=== PATIENT | female | born 1945 | race Caucasian/White ===

== ENCOUNTER 2019-07-29 12:06 | Emergency (ER) | payer MEDICARE, MEDICAID, SELFPAY ==
[2019-07-29 13:20] VITALS: BP 143/75; PULSE 62; RESP 18; TEMP 36.6; O2SAT 98; BMI 28.3
--- NOTE | 2019-07-29 13:26 | PC.NURSE ---
Patient seated back in the waiting room due to unavailable rooms at this time. Will continue to monitor.
[2019-07-29 16:24] VITALS: BP 134/76; PULSE 63; RESP 16; O2SAT 99
--- NOTE | 2019-07-29 17:12 | ED_ITS ---
Documented by User: JOSE Gonzalez 07/30/19 01:56 HPI - General Adult General: Chief complaint: General Medical Stated complaint: right sided face pain/hip pain Time Seen by Provider: 07/29/19 16:01 History of Present Illness: HPI narrative: Patient is a 73-year-old female comes to the ED with hip pain and facial pain. Facial pain started about a month ago and occurs whenever she touches right side of her face. She describes the pain as sharp. Denies any numbness weakness or tingling or any change of vision. Hip pain started about a month ago as well and denies any falls or traumas to the hip. Pain is on the right hip. She rates at about an 8/10. Denies any chest pain, shortness of breath, abdominal pain no nausea, vomiting, bladder or bowel symptoms. Review of Systems General: Reports: 10 or more systems reviewed and unremarkable except in HPI and below PFSH ED PFSH: Statuses (acute, chronic, etc) shown below reflect problem list status as previously entered and may not be historically accurate Family History Other CAD (coronary artery disease) Diabetes Hypertension Social History Smoking and tobacco status: never smoked Physical Exam Const: COMMON NORMALS: oriented x3 HENMT: COMMON NORMALS: normocephalic HEAD & SCALP: normocephalic MOUTH: oral and palatal mucosa normal THROAT: posterior oropharynx normal and uvula midline Neck/C-Spine: COMMON NORMALS: supple GENERAL: Yes normal visual inspection Resp: COMMON NORMALS: normal respiratory effort, no retractions, no use of accessory muscles and clear to auscultation bilaterally AUSCULTATION: clear to auscultation bilaterally Cardio: COMMON NORMALS: regular rate, regular rhythm, S1 normal heart sound, S2 normal heart sound, no gallops, no clicks, no murmurs and peripheral pulses 2+ throughout RATE: regular rate RHYTHM: regular rhythm HEART SOUNDS: S1 normal and S2 normal PERIPHERAL PULSES: pulses 2+ throughout GI: COMMON NORMALS: normal to inspection, nondistended, normoactive bowel sounds, soft to palpation, non-tender and no masses PALPATION: Yes soft : COMMON NORMALS: Yes no CVA tenderness BLADDER/KIDNEY EXAM: Yes no CVA tenderness Back/Pelvis: COMMON NORMALS: no CVA tenderness Neuro: COMMON NORMALS: oriented x3 and moves all extremities Course Vital Signs: Vital signs: Vital Signs Temperature 97.7 F 07/29/19 20:03 Pulse Rate 58 L 07/29/19 20:03 Respiratory Rate 16 07/29/19 20:03 Blood Pressure 115/74 07/29/19 20:03 Pulse Oximetry 98 07/29/19 20:03 MDM - General Adult Lab Data: Attestation: I reviewed the patient's lab results. Labs: Lab Results 07/29/19 Range/Units 17:42 ESR 22 H (0-15) mm/hr Imaging Data^: Xray Ortho: Attestation: I personally reviewed and interpreted this imaging study as follows: Radiologist's impression: [address] [address] XRay Report Signed Patient: Vi Hickey Unit #: [id number] : 1945 Age/Sex: 73 / F ADM Date: 07/29 Loc: ER Room/Bed: Attending Dr: Ordering Provider/Ordering MD: Ijeoma Washburn NP Date of Service: 07/29/19 Procedure(s): XR hip RT 2-3V wo/w pel* [id number] Accession Number(s): [id number] Report Number: [id number] PROCEDURE INFORMATION: Exam: XR Right Hip with Pelvis when Performed Exam date and time: 07/29/2019 5:32 PM Age: 73 years old Clinical indication: Hip pain; Right hip; Patient HX: Pain in RT hip x 1 mo. No known injury; Additional info: Pain with ambulation TECHNIQUE: Imaging protocol: XR Right hip with pelvis when performed. Views: 1 view. COMPARISON: [facility] Hip RIGHT 2-3 views 09/14/2017 11:42 AM FINDINGS: Bones/joints: Unremarkable. No acute fracture. Soft tissues: Unremarkable. XR/XR hip RT 2-3V wo/w pel* [id number] IMPRESSION: No acute findings. Dictated By: Glen Kendrick Signed By: Glen Kendrick Signed Date/Time: 07/29/191911 DD/ 09 Discharge Plan Discharge Patient Disposition: Home, Self-Care Clinical Impression: Trigeminal neuralgia Condition: Stable Prescriptions: New Tegretol 200 mg tablet 100 mg PO BID Qty: 14 RF: 0 prednisone 20 mg tablet 20 mg PO BID 5 Days Qty: 10 RF: 0 No Action furosemide 40 mg tablet 40 mg PO BID RF: 0 Januvia 100 mg tablet 100 mg PO DAILY RF: 0 metformin 500 mg tablet 500 mg PO BID RF: 0 Bystolic 10 mg tablet 10 mg PO DAILY RF: 0 cholecalciferol (vitamin D3) 1,000 unit capsule 1,000 unit PO DAILY RF: 0 omeprazole 40 mg capsule,delayed release(DR/EC) 40 mg PO BID RF: 0 levothyroxine 75 mcg capsule 75 mcg PO DAILY RF: 0 citalopram 20 mg tablet 10 mg PO DAILY RF: 0 simvastatin 20 mg tablet 20 mg PO DAILY RF: 0 ropinirole 2 mg tablet 2 mg PO BID PRNRF: 0 valsartan 160 mg tablet 160 mg PO DAILY RF: 0 quetiapine 50 mg tablet 50 mg PO DAILY RF: 0 potassium chloride [Klor-Con 10] 10 mEq tablet extended release 10 meq PO DAILY RF: 0 isosorbide mononitrate 30 mg tablet extended release 24 hr 30 mg PO DAILY Qty: 30 RF: 4 Discharge Orders: Discharge Order (Routine); Ordered 07/29/19 Ordered By: Ijeoma Washburn Referrals: Roberth Saenz MD [Primary Care Provider] - Discharge Diet: Advance as tolerated Discharge Activity: Resume usual activity Patient Instructions: Trigeminal Neuralgia (ED) Activity Restrictions/Additional Instructions: Please call PCP in am to see if he wants you to contine treatment with Tegretol. Schedule follow up appointment with PCP in 7 days. Please return to ER with any worsening of symptoms. Please take meds as directed Discharge Date/Time: 07/29/19 20:03 Sign Out Sign Out Data: Patient Sign Out occurred on 07/29/19 at 19:19. Patient's care was discussed, and care was transferred from Ijeoma Washburn to JOSE Gonzalez. Sign Out Comment: PEnding final xray read from radiologist Last updated by Ijeoma Washburn at 07/29/19 19:10 Coding Level of Care Code ED Hospitality Aide for Chg Fwd Documented by User: Ijeoma Washburn 07/30/19 07:16 HPI - General Adult General: Chief complaint: General Medical Stated complaint: right sided face pain/hip pain Time Seen by Provider: 07/29/19 16:01 History of Present Illness: Associated symptoms: Deny chest pain, confusion, diaphoresis, dyspnea, headache(s), malaise, nausea, rash, palpitations, syncope or vomiting Review of Systems Const: Denies: fever, chills, body aches, change in appetite, change in weight, fatigue, malaise or diaphoresis Eyes: Denies: change in vision, blurry vision, blind spots, photophobia, eye discomfort, eye discharge, eye redness, floaters or seeing flashes ENMT: Denies: throat pain, uvular edema, enlarged tonsils, painful swallowing, hoarseness, mouth pain, swelling of lips/tongue, oral sores/lesions, bleeding gums, dental pain, dry mouth, ear pain, ear discharge, Change in hearing, tinnitus, disequilibrium, nasal discharge, nasal congestion, post nasal drip or facial/sinus pain Card: Denies: chest pain, palpitations, irregular heart rhythm, edema, swelling of feet/ankles, lightheadedness, syncope, pre-syncope, shortness of breath on exertion, shortness of breath when lying down, leg pain with exertion or bluish discoloration of hands/feet Resp: Denies: shortness of breath, productive cough, non-productive cough, wheezing, stridor, pain on inspiration, change in phlegm color, coughing up blood or chest congestion GI: Denies: abdominal pain, nausea, vomiting, vomiting blood, difficulty swallowing, diarrhea, constipation, cramping, change in bowel habits or rectal pain : Denies: flank pain, difficulty urinating, painful urination, urinary frequency, urinary urgency, urinary hesitancy or blood in urine Musc: Reports: joint pain (right hip pain); Denies: neck pain, back pain, extremity pain, extremity swelling, joint swelling, redness, joint warmth or deformity Skin/Breast: Denies: rash, itching, redness, sores, new lesion, changes in skin color or dry skin Neuro: Reports: changes in sensation (Pt c/o dull ach and tingling to right cheek that is intermittent); Denies: headache, numbness in extremities, weakness in extremities, lack of coordination, difficulty walking, frequent falls, dizziness, vertigo, confusion, behavioral changes, slurred speech, difficulty communicating thoughts or seizure-like activity Psych: Denies: anxiety, depression, suicidal ideation or homicidal ideation Endo: Denies: excessive urination, excessive thirst, tired all the time, cold intolerance, excessive sweating, flushing, hot flashes or heat intolerance Deric/Lymph: Denies: easy bruising, easy bleeding, petechiae, purpura, enlarged lymph nodes or tender lymph nodes All/Imm: Denies: hives, throat swelling, tongue swelling, facial swelling, acute wheezing or itchy eyes PFSH ED PFSH: Statuses (acute, chronic, etc) shown below reflect problem list status as previously entered and may not be historically accurate Family History Other CAD (coronary artery disease) Diabetes Hypertension Social History Smoking and tobacco status: never smoked Physical Exam Const: COMMON NORMALS: oriented x3 and alert ORIENTATION/CONSCIOUSNESS: Yes oriented to person, Yes oriented to place and Yes oriented to time HENMT: THROAT: no uvular edema Neuro: COMMON NORMALS: oriented x3, CN's II-XII intact bilaterally, moves all extremities and no focal motor deficits SENSORIUM/ORIENTATION: Yes alert, Yes oriented to person, Yes oriented to place and Yes oriented to time CRANIAL NERVES: Yes CN V (trigeminal) (When trigimineal nerve is tapped this does elicit pain. ) CN V laterality: right COORDINATION/BALANCE: [id number]-sa-[id number] test normal, jwzh-fs-[id number] test normal and tandem gait normal SPEECH: speech normal GAIT: Yes normal gait and Yes other (When trigimineal nerve is tapped this does elicit pain. ) MOTOR EXAM: strength 5/5 throughout, no pronator drift, no tremor noted, no asterixis, no fasciculations and muscle tone normal throughout COORDINATION: jycebu-pi-qmsl test normal, znim-mh-[id number] test normal and tandem gait normal Course ED course: Pt is well appearing non toxic and in no acute distress. Pt does not have any visual disturbances and does not c/o headache however pt does c/o pain to right cheek that is intermittent. When trigimineal nerve is tapped this does elicit pain. there is no facial dropping noted. I do not feel symptoms are c/o giant cell arteritis but physical exam findings are c/w trigimenal neuralgia. I will start pt on tegretol low dose today and have her follow up with PCP tomorrow. There are no other focal neuro deficits noted. Pt is NVI distal to right hip. there are no concerning findings on hip/pelvis xray. Vital Signs: Vital signs: Vital Signs Temperature 97.7 F 07/29/19 20:03 Pulse Rate 58 L 07/29/19 20:03 Respiratory Rate 16 07/29/19 20:03 Blood Pressure 115/74 07/29/19 20:03 Pulse Oximetry 98 07/29/19 20:03 [facility] - General Adult Lab Data: Labs: Lab Results 07/29/19 Range/Units 17:42 ESR 22 H (0-15) mm/hr Discharge Plan Discharge Patient Disposition: Home, Self-Care Clinical Impression: Trigeminal neuralgia Condition: Stable Prescriptions: New Tegretol 200 mg tablet 100 mg PO BID Qty: 14 RF: 0 prednisone 20 mg tablet 20 mg PO BID 5 Days Qty: 10 RF: 0 No Action furosemide 40 mg tablet 40 mg PO BID RF: 0 Januvia 100 mg tablet 100 mg PO DAILY RF: 0 metformin 500 mg tablet 500 mg PO BID RF: 0 Bystolic 10 mg tablet 10 mg PO DAILY RF: 0 cholecalciferol (vitamin D3) 1,000 unit capsule 1,000 unit PO DAILY RF: 0 omeprazole 40 mg capsule,delayed release(DR/EC) 40 mg PO BID RF: 0 levothyroxine 75 mcg capsule 75 mcg PO DAILY RF: 0 citalopram 20 mg tablet 10 mg PO DAILY RF: 0 simvastatin 20 mg tablet 20 mg PO DAILY RF: 0 ropinirole 2 mg tablet 2 mg PO BID PRNRF: 0 valsartan 160 mg tablet 160 mg PO DAILY RF: 0 quetiapine 50 mg tablet 50 mg PO DAILY RF: 0 potassium chloride [Klor-Con 10] 10 mEq tablet extended release 10 meq PO DAILY RF: 0 isosorbide mononitrate 30 mg tablet extended release 24 hr 30 mg PO DAILY Qty: 30 RF: 4 Discharge Orders: Discharge Order (Routine); Ordered 07/29/19 Ordered By: Ijeoma Washburn Referrals: Roberth Saenz MD [Primary Care Provider] - Discharge Diet: Advance as tolerated Discharge Activity: Resume usual activity Patient Instructions: Trigeminal Neuralgia (ED) Activity Restrictions/Additional Instructions: Please call PCP in am to see if he wants you to contine treatment with Tegretol. Schedule follow up appointment with PCP in 7 days. Please return to ER with any worsening of symptoms. Please take meds as directed Discharge Date/Time: 07/29/19 20:03 Sign Out Sign Out Data: Patient Sign Out occurred on 07/29/19 at 19:19. Patient's care was discussed, and care was transferred from Ijeoma Washburn to JOSE Gonzalez. Sign Out Comment: PEnding final xray read from radiologist Last updated by Ijeoma Washburn at 07/29/19 19:10 Coding Level of Care Code ED Hospitality Aide for Jimmyg Tayla
--- NOTE | 2019-07-29 17:14 | XRR_ITS ---
PROCEDURE INFORMATION: Exam: XR Right Hip with Pelvis when Performed Exam date and time: 07/29/2019 5:32 PM Age: 73 years old Clinical indication: Hip pain; Right hip; Patient HX: Pain in RT hip x 1 mo. No known injury; Additional info: Pain with ambulation TECHNIQUE: Imaging protocol: XR Right hip with pelvis when performed. Views: 1 view. [place] [facility] [place]-3 views 09/14/2017 11:42 AM FINDINGS: Bones/joints: Unremarkable. No acute fracture. Soft tissues: Unremarkable. XR/XR hip RT 2-3V wo/w pel* [id number] IMPRESSION: No acute findings.
[2019-07-29 18:44] LABS: Erythrocyte Sedimentation Rate 22 mm/hr (0-15)
[2019-07-29 20:03] VITALS: BP 115/74; PULSE 58; RESP 16; TEMP 36.5; O2SAT 98
== END 2019-07-29 20:03 | disposition home or self-care (01) ==
PROVIDERS: Registered Nurse; Emergency Provider Physician Assistant; Family Provider Family Medicine; PCP Family Medicine
DX: G50.0 Trigeminal neuralgia (principal)
CPT/HCPCS: 36415; 73502; 85651; 99281; 99283

== ENCOUNTER 2019-08-15 06:00 | Outpatient (RCR) | payer MEDICARE, MEDICAID, SELFPAY | END 2019-08-24 23:59 | disposition home or self-care (01) | LOC: APT 06:00 | PROVIDERS: Family Provider Family Medicine; PCP Family Medicine; Referring Provider Family Medicine; Visit Provider Family Medicine | DX: M79.18 Myalgia, other site (principal) | CPT/HCPCS: 97110; 97140; 97162 ==

== ENCOUNTER 2019-08-25 06:00 | Outpatient (RCR) | payer MEDICARE, MEDICAID, SELFPAY | END 2019-09-24 23:59 | disposition home or self-care (01) | LOC: APT 06:00 | PROVIDERS: Family Provider Family Medicine; PCP Family Medicine; Referring Provider Family Medicine; Visit Provider Family Medicine | DX: M79.18 Myalgia, other site (principal) | CPT/HCPCS: 97110; 97140 ==

== ENCOUNTER 2019-09-14 12:37 | Emergency (ER) | payer MEDICARE, MEDICAID, SELFPAY ==
[2019-09-14 12:42] VITALS: BMI 30.2
--- NOTE | 2019-09-14 12:45 | CTR_ITS ---
PROCEDURE INFORMATION: Exam: CT Head Without Contrast Exam date and time: 09/14/2019 12:50 PM Age: 73 years old Clinical indication: Pain; Headache not specified; Patient HX: C/O intermittent R sided NAIDU radiating into neck x 1 months; Additional info: Trauma TECHNIQUE: Imaging protocol: Computed tomography of the head without contrast. Total DLP: 776.74 mGy-cm Radiation optimization: All CT scans at this facility use at least one of these dose optimization techniques: automated exposure control; mA and/or kV adjustment per patient size (includes targeted exams where dose is matched to clinical indication); or iterative reconstruction. COMPARISON: CT head wo con* [id number] 04/06/2018 11:54 AM FINDINGS: Brain: Symmetric prominence of the cortical sulci. Mild small vessel ischemic change. No acute cortical infarct, mass effect, or intracranial hemorrhage. No acute post-traumatic brain injury. Ventricles: Normal configuration of the ventricles. Bones/joints: No acute calvarial injury. 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 Mastoid air cells: Diminished pneumatization of the mastoid air cells. Soft tissues: No significant scalp hematoma. CT/CT head wo con* [id number] IMPRESSION: No acute post-traumatic brain injury. Radiation Dose CTDIVOL = (mGy): DLP = 776.74 (mGy-cm)
[2019-09-14 12:47] VITALS: BP 143/93; PULSE 66; RESP 18; TEMP 36.5; O2SAT 97
--- NOTE | 2019-09-14 13:01 | W.ED.HA ---
HPI - Headache General: Chief Complaint: Headache Stated Complaint: RIGHT HEAD AND NECK PAIN / FALL Time Seen by Provider: 09/14/19 12:43 Source: patient and family Mode of arrival: ambulatory Limitations: no limitations History of Present Illness: HPI Narrative: Patient is a 73-year-old female who presents to ED today along with her significant other for complaints of intermittent sharp right sided headaches and facial pain. Patient states symptoms seem to be intermittent and come on very suddenly. She states she has been having intermittent symptoms over the past month. When looking at previous visit lists she has been seen here last month for the same complaint and at that visit she stated pain had been present for a month concluding that this is been present for at least 2 months now. She states pain will last anywhere from a few seconds to a few minutes. She states pain seems to come on when she touches the right side of her face. She has not noticed any changes to her vision, facial drooping, slurred speech, impaired hearing. She has no dental pains. She denies nasal congestion or sinus pains/pressure. When she was seen here a month ago she was diagnosed with trigeminal neuralgia and placed on Tegretol for a week. Patient states she never followed up with her PCP following that visit. MD elicited complaint: headache and other (R facial pain) Onset (ago): month(s) Onset description: suddenly Location: right Severity: severe Quality & Timing: sharp and other (stabbing; brief; intermittent ) Relieving factors: nothing Associated symptoms: Reports no associated symptoms; Deny fever(s) Review of Systems Const: Denies: fever, chills, body aches or fatigue Eyes: Denies: change in vision, blurry vision, photophobia, eye discomfort, eye discharge, floaters or seeing flashes ENMT: Denies: throat pain, enlarged tonsils, painful swallowing, mouth pain, swelling of lips/tongue, oral sores/lesions, dental pain, ear pain, ear discharge, Change in hearing, nasal discharge, nasal congestion, post nasal drip or facial/sinus pain Resp: Denies: productive cough or non-productive cough Musc: Denies: neck pain Neuro: Denies: headache (R sided NAIDU/facial pain), numbness in extremities, weakness in extremities, changes in sensation, lack of coordination, difficulty walking, dizziness, vertigo, slurred speech or seizure-like activity All/Imm: Denies: facial swelling or seasonal allergies PFSH ED PFSH: Social History Smoking and tobacco status: never smoked Physical Exam Const: COMMON NORMALS: no apparent distress, average body habitus, oriented x3, no limitations, healthy appearing, alert and well nourished ORIENTATION/CONSCIOUSNESS: Yes oriented to person, Yes oriented to place and Yes oriented to time OTHER: pt reports being asymptomatic currenlty HENMT: COMMON NORMALS: normocephalic, head/scalp atraumatic, hearing grossly normal bilaterally, external ears normal, EAC's normal, TM's normal bilaterally, external nose normal, nasal mucous membranes and turbinates normal, moist oral mucous membranes and oropharynx normal HEAD & SCALP: normal to inspection, normocephalic and atraumatic FACE & SINUS: normal facial exam and sinuses nontender NOSE: external nose normal and nasal mucous membranes and turbinates normal EXTERNAL EAR: Yes external ears normal EXTERNAL AUDITORY CANAL: EAC's normal TYMPANIC MEMBRANE: TM's normal bilaterally MOUTH: oral and palatal mucosa normal, lip normal and tongue normal THROAT: posterior oropharynx normal, tonsils normal and uvula midline Eye: COMMON NORMALS: PERRL, EOMs intact bilaterally and conjunctivae normal CONJUNCTIVA: Yes conjunctivae normal PUPIL: Yes PERRL OTHER: no nystagmus Neck/C-Spine: COMMON NORMALS: full ROM, no lymphadenopathy and no meningeal signs Neuro: KASHIF COMA SCALE: document GCS findings [place] coma scale eye opening: Spontaneous [place] coma scale verbal response: Orientated Kashif coma scale motor response: Obey commands [place] coma scale total score: 15 COMMON NORMALS: oriented x3, CN's II-XII intact bilaterally, moves all extremities, no focal motor deficits, no sensory deficits noted and gait normal SENSORIUM/ORIENTATION: Yes alert, Yes oriented to person, Yes oriented to place and Yes oriented to time MENINGEAL SIGNS: Yes no meningeal signs SPEECH: speech normal Course Vital Signs: Vital signs: Vital Signs Temperature 97.7 F 09/14/19 12:47 Pulse Rate 68 09/14/19 14:04 Respiratory Rate 18 09/14/19 14:04 Blood Pressure 136/74 09/14/19 14:04 Pulse Oximetry 96 03/21/20 14:04 MDM - Headache MDM Narrative: Medical decision making narrative: Symptoms have been present and intermittent over the past 2 months at least. Clinical history of acute onset of very sharp stabbing pain lasting a few seconds to a few minutes is consistent with a trigeminal neuralgia. We will go ahead and place patient back on her Tegretol with strict instructions to follow-up with her PCP as this medication often needs to be titrated based on symptom control. 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 This does not coincide with patient's symptoms. Imaging Data^: CT Head: Radiologist's impression: [address] [place] [address] CT Scan Report Signed Patient: Vi Hickey Unit #: [id number] : 1945 Age/Sex: 73 / F ADM Date: 09/14/19 Loc: ER Room/Bed: Attending Dr: Ordering Provider/Ordering MD: Nenita Enriquez Date of Service: 09/14/19 Procedure(s): CT head wo con* [id number] Accession Number(s): [id number] Report Number: [id number] PROCEDURE INFORMATION: Exam: CT Head Without Contrast Exam date and time: 09/14/2019 12:50 PM Age: 73 years old Clinical indication: Pain; Headache not specified; Patient HX: C/O intermittent R sided NAIDU radiating into neck x 1 months; Additional info: Trauma TECHNIQUE: Imaging protocol: Computed tomography of the head without contrast. Total DLP: 776.74 mGy-cm Radiation optimization: All CT scans at this facility use at least one of these dose optimization techniques: automated exposure control; mA and/or kV adjustment per patient size (includes targeted exams where dose is matched to clinical indication); or iterative reconstruction. COMPARISON: CT head wo con* [id number] 04/06/2018 11:54 AM FINDINGS: Brain: Symmetric prominence of the cortical sulci. Mild small vessel ischemic change. No acute cortical infarct, mass effect, or intracranial hemorrhage. No acute post-traumatic brain injury. Ventricles: Normal configuration of the ventricles. Bones/joints: No acute calvarial injury. 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 Mastoid air cells: Diminished pneumatization of the mastoid air cells. Soft tissues: No significant scalp hematoma. CT/CT head wo con* [id number] IMPRESSION: No acute post-traumatic brain injury. Radiation Dose CTDIVOL = (mGy): DLP = 776.74 (mGy-cm) Dictated By: Tan Pete MD Signed By: Tan Pete MD Signed Date/Time: 09/14/191322 DD/ 132 Discharge Plan Discharge Patient Disposition: Home, Self-Care Clinical Impression: Trigeminal neuralgia Condition: Stable Prescriptions: New Tegretol 200 mg tablet 200 mg PO BID Qty: 60 RF: 0 Discontinued carbamazepine [Tegretol] 200 mg tablet 100 mg PO BID Qty: 14 RF: 0 No Action furosemide 40 mg tablet 40 mg PO BID RF: 0 Januvia 100 mg tablet 100 mg PO DAILY RF: 0 metformin 500 mg tablet 500 mg PO BID RF: 0 Bystolic 10 mg tablet 10 mg PO DAILY RF: 0 cholecalciferol (vitamin D3) 1,000 unit capsule 1,000 unit PO DAILY RF: 0 omeprazole 40 mg capsule,delayed release(DR/EC) 40 mg PO BID RF: 0 levothyroxine 75 mcg capsule 75 mcg PO DAILY RF: 0 citalopram 20 mg tablet 10 mg PO DAILY RF: 0 simvastatin 20 mg tablet 20 mg PO DAILY RF: 0 ropinirole 2 mg tablet 2 mg PO BID PRNRF: 0 valsartan 160 mg tablet 160 mg PO DAILY RF: 0 quetiapine 50 mg tablet 50 mg PO DAILY RF: 0 potassium chloride [Klor-Con 10] 10 mEq tablet extended release 10 meq PO DAILY RF: 0 isosorbide mononitrate 30 mg tablet extended release 24 hr 30 mg PO DAILY Qty: 30 RF: 4 Discharge Orders: Discharge Order (Routine); Ordered 09/14/19 Ordered By: Nenita Enriquez Referrals: Roberth Saenz MD [Primary Care Provider] - Discharge Diet: Usual diet Discharge Activity: Resume usual activity Activity Restrictions/Additional Instructions: As discussed you must follow up with Dr. Saenz for further evaluation of your headaches/possible diagnoses of trigeminal neuralgia. If he wants you to stay on the Tegretol then he may have to slowly titrate this higher until it helps with symptoms. Discharge Date/Time: 09/14/19 14:05 Coding Level of Care Code ED Local Bulk Driver for Cammie Bourne
[2019-09-14 14:04] VITALS: BP 136/74; PULSE 68; RESP 18; O2SAT 96
== END 2019-09-14 14:05 | disposition home or self-care (01) ==
PROVIDERS: Emergency Provider Physician Assistant; Family Provider Family Medicine; PCP Family Medicine
DX: G50.0 Trigeminal neuralgia (principal)
CPT/HCPCS: 12345; 70450; 99281; 99282

== ENCOUNTER → 2019-09-20 09:39 | Outpatient (BNVA) | payer MEDICARE, MEDICAID, SELFPAY | PROVIDERS: Family Provider Family Medicine; PCP Family Medicine; Visit Provider Nurse Practitioner Family | DX: R69 Illness, unspecified (principal); R82.998 Other abnormal findings in urine; R39.9 Unspecified symptoms and signs involving the genitourinary system; N39.0 Urinary tract infection, site not specified; R11.2 Nausea with vomiting, unspecified; G50.0 Trigeminal neuralgia; F41.9 Anxiety disorder, unspecified; R68.89 Other general symptoms and signs | CPT/HCPCS: 80053; 81003; 85025; 87400 ==

== ENCOUNTER 2019-10-11 00:50 | Emergency (ER) | payer MEDICARE, MEDICAID, SELFPAY ==
[2019-10-11 00:51] VITALS: BP 142/77; PULSE 77; RESP 18; TEMP 36.5; O2SAT 95; BMI 31.1
--- NOTE | 2019-10-11 01:04 | XR_ITS ---
WS: [id number] PORTABLE CHEST HISTORY: cough/congestion COMPARISON: 04/24/2018 Lungs are clear and well expanded. No pleural effusion or pneumothorax. Cardiac size: Normal. Mediastinum/Aorta: Mildly ectatic aorta. No osseous abnormality seen. Prior LEFT axillary cornelius dissection. XR/XR chest 1V portable [id number] IMPRESSION: Mildly ectatic aorta. No acute findings.
--- NOTE | 2019-10-11 01:07 | W.ED.DIZZY ---
Documented by User: JOSE Alonzo 10/14/19 17:09 HPI - Dizziness General: Chief Complaint: Fall Stated Complaint: FALL/DIZZINESS Time Seen by Provider: 10/11/19 01:04 Source: patient and EMS Mode of arrival: EMS Limitations: no limitations History of Present Illness: HPI Narrative: Patient is a 74-year-old female who presents to ED today via EMS for complaints of dizziness and a fall. Patient tells me after taking her morning dose of Tegretol she began feeling dizzy. She states symptoms lasted approximately an hour or so and then subsided. She states that the day she seemed to be okay however noticed when she took her evening dose that she again became dizzy which caused her to fall. Patient states there was no LOC. She states she struck the right side of her face on an object however is not having any pain. She denies any neck or back pain. Patient states she had initially stopped taking the Tegretol but restarted it today. She is not having any abdominal pain, nausea, vomiting, diarrhea. Denies urinary symptoms. She denies chest pain, cough, shortness of breath, difficulty breathing. Again no neck pain, visual changes, headache, numbness/tingling/weakness in her extremities, facial droop, slurred speech, or any other concerns at this time. MD elicited complaint: dizziness Onset (ago): hour(s) Context: change in medication History of similar symptoms: No Associated symptoms: Denies change in hearing, chest pain, chills, ear discharge, headache(s), malaise, nausea, nasal congestion, palpitations, syncope or vomiting Associated neuro symptoms: Deny numbness in extremities Review of Systems Const: Denies: fever, chills, body aches, fatigue or malaise Eyes: Denies: change in vision, blurry vision, photophobia, floaters or seeing flashes ENMT: Denies: throat pain, enlarged tonsils, painful swallowing, mouth pain, swelling of lips/tongue, oral sores/lesions, ear pain, ear discharge, Change in hearing, nasal discharge or nasal congestion Card: Denies: chest pain, palpitations, irregular heart rhythm, edema, swelling of feet/ankles, lightheadedness, syncope, pre-syncope, shortness of breath on exertion, shortness of breath when lying down or leg pain with exertion Resp: Denies: shortness of breath, productive cough, non-productive cough, pain on inspiration, coughing up blood or chest congestion GI: Denies: abdominal pain, nausea, vomiting, heartburn/indigestion or diarrhea : Denies: flank pain, difficulty urinating, painful urination, urinary frequency, urinary urgency or urinary hesitancy Musc: Denies: neck pain, back pain, extremity pain, extremity swelling, joint pain or joint swelling Skin/Breast: Denies: rash Neuro: Reports: dizziness; Denies: headache, numbness in extremities, weakness in extremities or changes in sensation PFSH ED PFSH: Social History Smoking and tobacco status: never smoked Physical Exam Const: COMMON NORMALS: no apparent distress, average body habitus, oriented x3, no limitations, healthy appearing, alert and well nourished ORIENTATION/CONSCIOUSNESS: Yes oriented to person, Yes oriented to place and Yes oriented to time OTHER: pt is very hard of hearing HENMT: COMMON NORMALS: normocephalic, external ears normal, EAC's normal, TM's normal bilaterally, external nose normal, nasal mucous membranes and turbinates normal, moist oral mucous membranes and oropharynx normal HEAD & SCALP: normocephalic FACE & SINUS: sinuses nontender and other (swelling/bruising over R face; no tenderness ) NOSE: external nose normal and nasal mucous membranes and turbinates normal EXTERNAL EAR: Yes external ears normal EXTERNAL AUDITORY CANAL: EAC's normal TYMPANIC MEMBRANE: TM's normal bilaterally MOUTH: oral and palatal mucosa normal, lip normal and tongue normal TEETH & GINGIVA: Yes other (pt missing several teeth however no acute dental trauma noted) THROAT: posterior oropharynx normal, tonsils normal and uvula midline Eye: COMMON NORMALS: PERRL, EOMs intact bilaterally and conjunctivae normal CONJUNCTIVA: Yes conjunctivae normal PUPIL: Yes PERRL Neck/C-Spine: COMMON NORMALS: full ROM, no lymphadenopathy and no meningeal signs Chest: COMMONS NORMALS: inspection of chest normal and palpation of chest normal Resp: COMMON NORMALS: normal respiratory effort and clear to auscultation bilaterally AUSCULTATION: clear to auscultation bilaterally Cardio: COMMON NORMALS: regular rate and regular rhythm RATE: regular rate RHYTHM: regular rhythm GI: COMMON NORMALS: normal to inspection, nondistended, normoactive bowel sounds, soft to palpation, non-tender, no hepatosplenomegaly and no masses PALPATION: Yes soft and Yes no hepatosplenomegaly Back/Pelvis: COMMON NORMALS: thoracic and lumbar spine normal to inspection, no thoracic nor lumbar tenderness and thoraco-lumbar ROM normal Extremity: COMMON NORMALS: normal to inspection Neuro: KASHIF COMA SCALE: document GCS findings Kashif coma scale eye opening: Spontaneous [place] coma scale verbal response: Orientated [place] coma scale motor response: Obey commands [place] coma scale total score: 15 COMMON NORMALS: oriented x3, CN's II-XII intact bilaterally, moves all extremities, no focal motor deficits and no sensory deficits noted SENSORIUM/ORIENTATION: Yes alert, Yes oriented to person, Yes oriented to place and Yes oriented to time MENINGEAL SIGNS: Yes no meningeal signs Skin: COMMON NORMALS: no rashes or lesions noted GENERAL SKIN EXAM: no rashes or lesions noted Course Vital Signs: Vital signs: Vital Signs Temperature 97.7 F 10/11/19 00:51 Pulse Rate 80 10/11/19 06:25 Respiratory Rate 16 10/11/19 06:25 Blood Pressure 132/78 10/11/19 06:25 Pulse Oximetry 96 10/11/19 06:25 MDM - Dizziness Lab Data: Labs: Lab Results 10/11/19 10/11/19 10/11/19 Range/Units 01:48 01:48 01:48 WBC 11.2 H (4.0-10.0) 10^3/ uL RBC 3.74 L (4.1-5.3) 10^6/u L Hgb 10.3 L (11.5-15.3) g/dL Hct 34.4 L (37.0-47.0) % MCV 92.0 (81-99) fL MCH 27.5 L (28.0-34.0) pg MCHC 29.9 L (30.0-36.0) g/dL RDW 16.0 H (12.1-15.1) % Plt Count 240 (130-400) 10^3/c mm MPV 9.8 (7.4-10.4) fL Neut % (Auto) 70.2 % Lymph % (Auto) 19.0 % [place] % (Auto) 6.2 % Eos % (Auto) 3.6 % Baso % (Auto) 0.6 % Neut # (Auto) 7.9 H (1.8-7.7) 10^3/u L Lymph # (Auto) 2.1 (0.8-4.8) 10^3/u L [place] # (Auto) 0.7 (0.2-0.9) 10^3/u L Eos # (Auto) 0.4 (0.0-0.8) 10^3/u L Baso # (Auto) 0.1 (0.0-0.1) 10^3/u L Nucleated RBC % (a uto) 0 % Nucleated RBCs # 0.0 /100WBC Sodium 141 (136-145) mmol/L Potassium 4.5 (3.5-5.1) mmol/L Chloride 102 (98-107) mmol/L Carbon Dioxide 24 (22-29) mmol/L Anion Gap 19.5 H (5-19) BUN 36 H (8-23) mg/dL Creatinine 1.8 H (0.5-0.9) mg/dL Glucose 125 H (65-115) mg/dL Calculated Osmolal ity 291 (285-295) mOsm/k g Calcium 9.8 (8.5-10.5) mg/dL Total Bilirubin 0.2 (0.15-1.2) mg/dL AST 21 (0-32) U/L ALT 13 (0-33) U/L Alkaline Phosphata se 103 (35-105) IU/L Troponin T Baselin e 39 H (0-10) ng/mL Troponin T 120 Min [place] (0-10) ng/mL Delta Troponin T (0-10) ABS# Total Protein 6.9 (6.6-8.7) g/dL Albumin 4.4 (3.5-5.2) g/dL Globulin 2.5 (1.3-4.6) g/dL Urine Color (Yellow) Urine Appearance (CLEAR) Urine pH (5-7) Ur Specific Gravit y (1.005-1.030) Urine Protein (Negative) Urine Glucose (UA) (Normal) Urine Ketones (Negative) Urine Blood (Negative) Urine Nitrate (Negative) Urine Bilirubin (NEGATIVE) Urine Urobilinogen (Negative) mg/dL Ur Leukocyte Yessenia ase (Negative) Carbamazepine 8.3 (4.0-12.0) ug/mL 10/11/19 10/11/19 Range/Units 03:20 05:35 WBC (4.0-10.0) 10^3/ uL RBC (4.1-5.3) 10^6/u L Hgb (11.5-15.3) g/dL Hct (37.0-47.0) % MCV (81-99) fL MCH (28.0-34.0) pg MCHC (30.0-36.0) g/dL RDW (12.1-15.1) % Plt Count (130-400) 10^3/c mm MPV (7.4-10.4) fL Neut % (Auto) % Lymph % (Auto) % [place] % (Auto) % Eos % (Auto) % Baso % (Auto) % Neut # (Auto) (1.8-7.7) 10^3/u L Lymph # (Auto) (0.8-4.8) 10^3/u L [place] # (Auto) (0.2-0.9) 10^3/u L Eos # (Auto) (0.0-0.8) 10^3/u L Baso # (Auto) (0.0-0.1) 10^3/u L Nucleated RBC % (a uto) % Nucleated RBCs # /100WBC Sodium (136-145) mmol/L Potassium (3.5-5.1) mmol/L Chloride (98-107) mmol/L Carbon Dioxide (22-29) mmol/L Anion Gap (5-19) BUN (8-23) mg/dL Creatinine (0.5-0.9) mg/dL Glucose (65-115) mg/dL Calculated Osmolal ity (285-295) mOsm/k g Calcium (8.5-10.5) mg/dL Total Bilirubin (0.15-1.2) mg/dL AST (0-32) U/L ALT (0-33) U/L Alkaline Phosphata se (35-105) IU/L Troponin T Baselin e (0-10) ng/mL Troponin T 120 Min [place] 36.78 H (0-10) ng/mL Delta Troponin T -2.22 L (0-10) ABS# Total Protein (6.6-8.7) g/dL Albumin (3.5-5.2) g/dL Globulin (1.3-4.6) g/dL Urine Color Yellow (Yellow) Urine Appearance Clear (CLEAR) Urine pH 5 (5-7) Ur Specific Gravit y 1.015 (1.005-1.030) Urine Protein Neg (Negative) Urine Glucose (UA) Norm (Normal) Urine Ketones Negative (Negative) Urine Blood Neg (Negative) Urine Nitrate Negative (Negative) Urine Bilirubin Neg (NEGATIVE) Urine Urobilinogen Norm (Negative) mg/dL Ur Leukocyte Yessenia ase Negative (Negative) Carbamazepine (4.0-12.0) ug/mL Imaging Data^: CT Head: Radiologist's impression: [address] [address] [address] Scan Report Signed Patient: Vi Hickey Unit #: [id number] : 1945 Age/Sex: 74 / F ADM Date: 10/11/19 Loc: ER Room/Bed: Attending Dr: Ordering Provider/Ordering MD: Nenita Enriquez Date of Service: 10/11/19 Procedure(s): CT head wo con* 32911 Accession Number(s): [id number] Report Number: [id number] PROCEDURE INFORMATION: Exam: CT Head Without Contrast Exam date and time: 10/11/2019 1:08 AM Age: 74 years old Clinical indication: Injury or trauma; Fall; Initial encounter; Blunt trauma (contusions or hematomas); Consciousness not specified; Dizziness; Additional info: Dizziness/fall TECHNIQUE: Imaging protocol: Computed tomography of the head without contrast. Total DLP: 855.87 mGy-cm Radiation optimization: All CT scans at this facility use at least one of these dose optimization techniques: automated exposure control; mA and/or kV adjustment per patient size (includes targeted exams where dose is matched to clinical indication); or iterative reconstruction. COMPARISON: CT head wo con* [id number] 09/14/2019 12:57 PM FINDINGS: Brain: No acute intracranial hemorrhage or mass effect. There is very mild decreased attenuation in the periventricular white matter, likely from microvascular disease. No definite acute infarct by CT. MRI could be more sensitive/specific for detection, as clinically directed. Ventricles: Ventricle size is normal for age. Bones/joints: No definite acute skull fracture. Sinuses: Almost complete opacification of the frontal and ethmoid sinuses. Mild mucosal thickening in the maxillary sinuses. Mastoid air cells: No significant acute finding. Vasculature: Vascular calcifications in the internal carotid arteries. CT/CT head wo con* [id number] IMPRESSION: 1. No acute intracranial hemorrhage or mass effect. 2. No definite acute infarct by CT, see above. 3. Paranasal sinus findings as discussed above. 4. Other findings discussed above. Radiation Dose CTDIVOL = (mGy): DLP = 855.87 (mGy-cm) Dictated By: Xavier Gomez MD Signed By: Xavier Gomez MD Signed Date/Time: 10/11/19213 DD/ 2 CXR: My impression: NAD-no acute changes from previous Discharge Plan Discharge Patient Disposition: Home, Self-Care Clinical Impression: Closed head injury Fall Qualifiers: Encounter type: initial encounter Qualified Code(s): W19.XXXA - Unspecified fall, initial encounter Condition: Stable Prescriptions: No Action furosemide 40 mg tablet 40 mg PO BID RF: 0 Januvia 100 mg tablet 100 mg PO DAILY RF: 0 metformin 500 mg tablet 1,000 mg PO DAILY RF: 0 Bystolic 10 mg tablet 10 mg PO DAILY RF: 0 cholecalciferol (vitamin D3) 1,000 unit capsule 1,000 unit PO DAILY RF: 0 omeprazole 40 mg capsule,delayed release(DR/EC) 40 mg PO BID RF: 0 levothyroxine 75 mcg capsule 75 mcg PO DAILY RF: 0 citalopram 20 mg tablet 10 mg PO DAILY RF: 0 simvastatin 20 mg tablet 20 mg PO DAILY RF: 0 ropinirole 2 mg tablet 2 mg PO BID PRN (Reason: RESTLESS LEG SYNDROME) RF: 0 valsartan 160 mg tablet 160 mg PO DAILY RF: 0 quetiapine 50 mg tablet 50 mg PO DAILY RF: 0 potassium chloride [Klor-Con 10] 10 mEq tablet extended release 10 meq PO DAILY RF: 0 isosorbide mononitrate 30 mg tablet extended release 24 hr 30 mg PO DAILY Qty: 30 RF: 4 carbamazepine [Tegretol] 200 mg tablet 200 mg PO BID Qty: 60 RF: 0 rivastigmine tartrate 3 mg Capsule 3 mg PO BID RF: 0 magnesium oxide 400 mg magnesium Tablet 400 mg PO DAILY RF: 0 Discharge Orders: Discharge Order (Routine); Ordered 10/11/19 Ordered By: Kendra Foreman Referrals: Roberth Saenz MD [Primary Care Provider] - 4-7 days Discharge Diet: Advance as tolerated Discharge Activity: Resume usual activity Patient Instructions: Minor Head Injury (ED), Fall Prevention (ED) Discharge Date/Time: 10/11/19 07:23 Coding Level of Care Code ED Tape Rules Printing Machine Operator for Chg Fwd Exam Comprehensive Documented by User: Kendra Foreman MD 10/11/19 06:02 HPI - Dizziness General: Chief Complaint: Fall Stated Complaint: FALL/DIZZINESS Time Seen by Provider: 10/11/19 01:04 [facility] ED PFSH: Social History Smoking and tobacco status: never smoked Course Vital Signs: Vital signs: Vital Signs Temperature 97.7 F 10/11/19 00:51 Pulse Rate 80 10/11/19 06:25 Respiratory Rate 16 10/11/19 06:25 Blood Pressure 132/78 10/11/19 06:25 Pulse Oximetry 96 10/11/19 06:25 MDM - Dizziness MDM Narrative: Medical decision making narrative: I saw patient with above midlevel and agree with her history and physical. I spoke to patient and sounds like her increased falls is come from her not having a walker. She states she loaned her walker to her friend and has not been using one. She states she feels much improved here and has no weakness. Her lab work here is normal with no acute findings. CT head is normal. Patient is stable for discharge and will discharge with a prescription for a walker and she is to return if worsening. Lab Data: Labs: Lab Results 04/17/20 04/17/20 04/17/20 Range/Units 01:48 01:48 01:48 WBC 11.2 H (4.0-10.0) 10^3/ uL RBC 3.74 L (4.1-5.3) 10^6/u L Hgb 10.3 L (11.5-15.3) g/dL Hct 34.4 L (37.0-47.0) % MCV 92.0 (81-99) fL MCH 27.5 L (28.0-34.0) pg MCHC 29.9 L (30.0-36.0) g/dL RDW 16.0 H (12.1-15.1) % Plt Count 240 (130-400) 10^3/c mm MPV 9.8 (7.4-10.4) fL Neut % (Auto) 70.2 % Lymph % (Auto) 19.0 % [place] % (Auto) 6.2 % Eos % (Auto) 3.6 % Baso % (Auto) 0.6 % Neut # (Auto) 7.9 H (1.8-7.7) 10^3/u L Lymph # (Auto) 2.1 (0.8-4.8) 10^3/u L [place] # (Auto) 0.7 (0.2-0.9) 10^3/u L Eos # (Auto) 0.4 (0.0-0.8) 10^3/u L Baso # (Auto) 0.1 (0.0-0.1) 10^3/u L Nucleated RBC % (a uto) 0 % Nucleated RBCs # 0.0 /100WBC Sodium 141 (136-145) mmol/L Potassium 4.5 (3.5-5.1) mmol/L Chloride 102 (98-107) mmol/L Carbon Dioxide 24 (22-29) mmol/L Anion Gap 19.5 H (5-19) BUN 36 H (8-23) mg/dL Creatinine 1.8 H (0.5-0.9) mg/dL Glucose 125 H (65-115) mg/dL Calculated Osmolal ity 291 (285-295) mOsm/k g Calcium 9.8 (8.5-10.5) mg/dL Total Bilirubin 0.2 (0.15-1.2) mg/dL AST 21 (0-32) U/L ALT 13 (0-33) U/L Alkaline Phosphata se 103 (35-105) IU/L Troponin T Baselin e 39 H (0-10) ng/mL Troponin T 120 Min [place] (0-10) ng/mL Delta Troponin T (0-10) ABS# Total Protein 6.9 (6.6-8.7) g/dL Albumin 4.4 (3.5-5.2) g/dL Globulin 2.5 (1.3-4.6) g/dL Urine Color (Yellow) Urine Appearance (CLEAR) Urine pH (5-7) Ur Specific Gravit y (1.005-1.030) Urine Protein (Negative) Urine Glucose (UA) (Normal) Urine Ketones (Negative) Urine Blood (Negative) Urine Nitrate (Negative) Urine Bilirubin (NEGATIVE) Urine Urobilinogen (Negative) mg/dL Ur Leukocyte Yessenia ase (Negative) Carbamazepine 8.3 (4.0-12.0) ug/mL 10/11/19 10/11/19 Range/Units 03:20 05:35 WBC (4.0-10.0) 10^3/ uL RBC (4.1-5.3) 10^6/u L Hgb (11.5-15.3) g/dL Hct (37.0-47.0) % MCV (81-99) fL MCH (28.0-34.0) pg MCHC (30.0-36.0) g/dL RDW (12.1-15.1) % Plt Count (130-400) 10^3/c mm MPV (7.4-10.4) fL Neut % (Auto) % Lymph % (Auto) % [place] % (Auto) % Eos % (Auto) % Baso % (Auto) % Neut # (Auto) (1.8-7.7) 10^3/u L Lymph # (Auto) (0.8-4.8) 10^3/u L [place] # (Auto) (0.2-0.9) 10^3/u L Eos # (Auto) (0.0-0.8) 10^3/u L Baso # (Auto) (0.0-0.1) 10^3/u L Nucleated RBC % (a uto) % Nucleated RBCs # /100WBC Sodium (136-145) mmol/L Potassium (3.5-5.1) mmol/L Chloride (98-107) mmol/L Carbon Dioxide (22-29) mmol/L Anion Gap (5-19) BUN (8-23) mg/dL Creatinine (0.5-0.9) mg/dL Glucose (65-115) mg/dL Calculated Osmolal ity (285-295) mOsm/k g Calcium (8.5-10.5) mg/dL Total Bilirubin (0.15-1.2) mg/dL AST (0-32) U/L ALT (0-33) U/L Alkaline Phosphata se (35-105) IU/L Troponin T Baselin e (0-10) ng/mL Troponin T 120 Min [place] 36.78 H (0-10) ng/mL Delta Troponin T -2.22 L (0-10) ABS# Total Protein (6.6-8.7) g/dL Albumin (3.5-5.2) g/dL Globulin (1.3-4.6) g/dL Urine Color Yellow (Yellow) Urine Appearance Clear (CLEAR) Urine pH 5 (5-7) Ur Specific Gravit y 1.015 (1.005-1.030) Urine Protein Neg (Negative) Urine Glucose (UA) Norm (Normal) Urine Ketones Negative (Negative) Urine Blood Neg (Negative) Urine Nitrate Negative (Negative) Urine Bilirubin Neg (NEGATIVE) Urine Urobilinogen Norm (Negative) mg/dL Ur Leukocyte Yessenia ase Negative (Negative) Carbamazepine (4.0-12.0) ug/mL Imaging Data^: CT Head: Radiologist's impression: [place] [address] CT Scan Report Signed Patient: Vi Hickey Unit #: [id number] : 1945 Age/Sex: 74 / F ADM Date: 10/11/19 Loc: ER Room/Bed: Attending Dr: Ordering Provider/Ordering MD: Nenita Enriquez Date of Service: 10/11/19 Procedure(s): CT head wo con* [id number] Accession Number(s): [id number] Report Number: [id number] PROCEDURE INFORMATION: Exam: CT Head Without Contrast Exam date and time: 10/11/2019 1:08 AM Age: 74 years old Clinical indication: Injury or trauma; Fall; Initial encounter; Blunt trauma (contusions or hematomas); Consciousness not specified; Dizziness; Additional info: Dizziness/fall TECHNIQUE: Imaging protocol: Computed tomography of the head without contrast. Total DLP: 855.87 mGy-cm Radiation optimization: All CT scans at this facility use at least one of these dose optimization techniques: automated exposure control; mA and/or kV adjustment per patient size (includes targeted exams where dose is matched to clinical indication); or iterative reconstruction. COMPARISON: CT head wo con* [id number] 09/14/2019 12:57 PM FINDINGS: Brain: No acute intracranial hemorrhage or mass effect. There is very mild decreased attenuation in the periventricular white matter, likely from microvascular disease. No definite acute infarct by CT. MRI could be more sensitive/specific for detection, as clinically directed. Ventricles: Ventricle size is normal for age. Bones/joints: No definite acute skull fracture. Sinuses: Almost complete opacification of the frontal and ethmoid sinuses. Mild mucosal thickening in the maxillary sinuses. Mastoid air cells: No significant acute finding. Vasculature: Vascular calcifications in the internal carotid arteries. CT/CT head wo con* [id number] IMPRESSION: 1. No acute intracranial hemorrhage or mass effect. 2. No definite acute infarct by CT, see above. 3. Paranasal sinus findings as discussed above. 4. Other findings discussed above. EKG Data^: EKG 1: Attestation: I personally reviewed and interpreted this EKG as follows: EKG interpretation date: 10/11/19 EKG interpretation time: 04:44 Interpretation: nsr hr [address] or t wave abnormalities qrs 100 qtc 434 Discharge Plan Discharge Patient Disposition: Home, Self-Care Clinical Impression: Closed head injury Fall Qualifiers: Encounter type: initial encounter Qualified Code(s): W19.XXXA - Unspecified fall, initial encounter Condition: Stable Prescriptions: No Action furosemide 40 mg tablet 40 mg PO BID RF: 0 Januvia 100 mg tablet 100 mg PO DAILY RF: 0 metformin 500 mg tablet 1,000 mg PO DAILY RF: 0 Bystolic 10 mg tablet 10 mg PO DAILY RF: 0 cholecalciferol (vitamin D3) 1,000 unit capsule 1,000 unit PO DAILY RF: 0 omeprazole 40 mg capsule,delayed release(DR/EC) 40 mg PO BID RF: 0 levothyroxine 75 mcg capsule 75 mcg PO DAILY RF: 0 citalopram 20 mg tablet 10 mg PO DAILY RF: 0 simvastatin 20 mg tablet 20 mg PO DAILY RF: 0 ropinirole 2 mg tablet 2 mg PO BID PRN (Reason: RESTLESS LEG SYNDROME) RF: 0 valsartan 160 mg tablet 160 mg PO DAILY RF: 0 quetiapine 50 mg tablet 50 mg PO DAILY RF: 0 potassium chloride [Klor-Con 10] 10 mEq tablet extended release 10 meq PO DAILY RF: 0 isosorbide mononitrate 30 mg tablet extended release 24 hr 30 mg PO DAILY Qty: 30 RF: 4 carbamazepine [Tegretol] 200 mg tablet 200 mg PO BID Qty: 60 RF: 0 rivastigmine tartrate 3 mg Capsule 3 mg PO BID RF: 0 magnesium oxide 400 mg magnesium Tablet 400 mg PO DAILY RF: 0 Discharge Orders: Discharge Order (Routine); Ordered 10/11/19 Ordered By: Kendra Foreman Referrals: Roberth Saenz MD [Primary Care Provider] - 4-7 days Discharge Diet: Advance as tolerated Discharge Activity: Resume usual activity Patient Instructions: Minor Head Injury (ED), Fall Prevention (ED) Discharge Date/Time: 10/11/19 07:23 Coding Level of Care Code ED Tape Rules Printing Machine Operator for Cammie Fwcarlos Exam Comprehensive
[2019-10-11 01:56] LABS: Basophils # 0.1 10^3/uL (0.0-0.1); Basophils % 0.6 %; Eosinophils # 0.4 10^3/uL (0.0-0.8); Eosinophils % 3.6 %; Hematocrit 34.4 % (37.0-47.0); Hemoglobin 10.3 g/dL (11.5-15.3); Lymphocytes # 2.1 10^3/uL (0.8-4.8); Mean Corpuscular HGB Conc 29.9 g/dL (30.0-36.0); Mean Corpuscular Hemoglobin 27.5 pg (28.0-34.0); Mean Platelet Volume 9.8 fL (7.4-10.4); Monocytes # 0.7 10^3/uL (0.2-0.9); Monocytes % 6.2 %; Neutrophils # 7.9 10^3/uL (1.8-7.7); Neutrophils % 70.2 %; Nucleated Red Blood Cells % 0 %; Platelet Count 240 10^3/cmm (130-400); Red Blood Count 3.74 10^6/uL (4.1-5.3); White Blood Count 11.2 10^3/uL (4.0-10.0)
[2019-10-11 02:20] LABS: Alanine Aminotransferase 13 U/L (0-33); Albumin Level 4.4 g/dL (3.5-5.2); Alkaline Phosphatase 103 IU/L (35-105); Anion Gap 19.5 (5-19); Aspartate Amino Transferase 21 U/L (0-32); Blood Urea Nitrogen 36 mg/dL (8-23); Calcium 9.8 mg/dL (8.5-10.5); Carbon Dioxide 24 mmol/L (22-29); Chloride 102 mmol/L (98-107); Globulin 2.5 g/dL (1.3-4.6); Glucose 125 mg/dL (65-115); Osmolality Calculated 291 mOsm/kg (285-295); Potassium 4.5 mmol/L (3.5-5.1); Sodium 141 mmol/L (136-145); Total Bilirubin 0.2 mg/dL (0.15-1.2); Total Protein 6.9 g/dL (6.6-8.7)
--- NOTE | 2019-10-11 02:29 | PC.NURSE ---
Patient ambulated with minimal assistance and did well. Patient states she is supposed to have walker and cane at home but loaned them to someone and has not gotten them back. JOSE Alonzo notified.
[2019-10-11 02:33] LABS: Troponin(5th) Baseline 39 ng/mL (0-10)
[2019-10-11] MEDS: meclizine 25 mg tablet PO (02:46)
[2019-10-11] MEDS: sodium chloride 0.9% 1,000 ML 999 ML IV (02:46)
--- NOTE | 2019-10-11 03:05 | ECG_ITS ---
Measurements Intervals [place] Rate: 63 P: 93 WA: 193 QRS: 31 QRSD: 100 T: 43 QT: 427 QTc: 439 SINUS RHYTHM WITH OCCASIONAL SUPRAVENTRICULAR PREMATURE COMPLEXES Compared to ECG 10/15/2018 09:46:49 No significant changes Electronically Signed On 10-11-2019 18:26:47 CDT by Eddy Calix M.D. [email or web address]
[2019-10-11 04:38] LABS: Carbamazepine Tegretol 8.3 ug/mL (4.0-12.0)
[2019-10-11 04:41] LABS: Troponin 5 2HR 36.78 ng/mL (0-10)
[2019-10-11 05:15] LABS: Troponin 5 2HR Delta -2.22 ABS# (0-10)
[2019-10-11 05:47] LABS: Add Urine Microscopic? NO
[2019-10-11 05:57] LABS: Bilirubin Urine Neg (NEGATIVE); Blood Urine Neg (Negative); Glucose Urine UA Norm (Normal); Ketones Urine Negative (Negative); Leukocyte Esterase Urine Negative (Negative); Nitrate Urine Negative (Negative); Protein Urine Neg (Negative); Specific Gravity, Urine 1.015 (1.005-1.030); Urine Appearance Clear (CLEAR); Urine Color Yellow (Yellow); Urobilinogen Urine Norm (Negative); pH Urine 5 (5-7)
[2019-10-11 06:25] VITALS: BP 132/78; PULSE 80; RESP 16; O2SAT 96
--- NOTE | 2019-10-11 07:05 | ECG_ITS ---
Measurements Intervals [place] Rate: 73 P: 99 MA: 177 QRS: 26 QRSD: 100 T: 42 QT: 397 QTc: 438 SINUS RHYTHM Compared to ECG 10/15/2018 09:46:49 No significant changes Electronically Signed On 10-11-2019 18:26:38 CDT by Eddy Calix M.D. [id number]
== END 2019-10-11 07:23 | disposition home or self-care (01) ==
PROVIDERS: Physician Assistant; Emergency Provider Emergency Medicine; Family Provider Family Medicine; PCP Family Medicine
DX: S09.90XA Unspecified injury of head, initial encounter (principal); W19.XXXA Unspecified fall, initial encounter; R05 Cough
CPT/HCPCS: 12345; 70450; 71045; 80053; 80156; 81003; 84484; 85025; 93005; 96361; 96374; 99283; 99284; J2001; J7030; J8597

== ENCOUNTER 2020-02-22 18:16 | Emergency (ER) | payer MEDICARE, MEDICAID, SELFPAY ==
[2020-02-22 18:41] VITALS: BP 150/81; PULSE 79; RESP 16; TEMP 36.8; O2SAT 96; BMI 31.4
--- NOTE | 2020-02-22 20:19 | ED_ITS ---
HPI - Headache General: Chief Complaint: Headache Stated Complaint: NAIDU Time Seen by Provider: 02/22/20 20:18 History of Present Illness: HPI Narrative: 74-year-old lady who was seen in clinic couple of days ago, for right ear pain, feeling like it was occluded, and headache. She states she was prescribed drops and pill antibiotics for her ear, which is improving, but her headache is worsened. She complains of right-sided facial pain, radiating to her head and down her neck. No trouble with speech, no mental status changes, no balance problems, etc. No fever. MD elicited complaint: headache Onset (ago): day(s) Onset description: gradually Location: right, frontal and temporal Quality & Timing: aching and throbbing Exacerbating factors: noise Relieving factors: nothing Context: occurred at rest Associated symptoms: Reports nausea; Deny chest pain, confusion, cough, eye pain, fever(s), neck stiffness, rash, short of breath, vomiting or weakness Review of Systems Const: Denies: fever(s) Eyes: Denies: change in vision or blurry vision ENMT: Reports: sinus pain; Denies: swelling of lips/tongue, bleeding gums or post nasal drip Card: Denies: chest pain Resp: Denies: dyspnea, productive cough, non-productive cough or wheezing GI: Reports: nausea; Denies: vomiting : Denies: dysuria or hematuria Musc: Reports: neck pain; Denies: back pain Skin/Breast: Denies: rash, pruritus or erythema Neuro: Denies: headache(s), dizziness, vertigo, confusion or seizure-like activity Psych: Denies: anxiety PFS ED PFSH: Medical History (Updated 02/22/20 @ 22:11 by Sharan Smith DO) AC (acromioclavicular) arthritis Anemia Carpal tunnel syndrome Cervical stenosis of spine DDD (degenerative disc disease), cervical DDD (degenerative disc disease), lumbar Diabetes mellitus Diastolic heart failure Facet joint disease HTN (hypertension) Hyperlipidemia Osteoarthritis Restless legs syndrome (RLS) Wears hearing aid in both ears Surgical History S/P hysterectomy S/P knee replacement Bilateral S/P mastectomy Left total S/P rotator cuff repair Right Family History Other CAD (coronary artery disease) Diabetes Hypertension Social History Smoking and tobacco status: never smoked Second hand smoke exposure: No Smoking risk assessment/counseling performed?: No Alcohol intake: never Desire information about alcohol rehabilitation?: No Counseling given: No Desire information about substance/drug rehabilitation?: No Counseling given: No Adopted: No Caregiver/support person: No Lives independently: Yes Household members: none Housing: Apartment Marital status: / Number of children: 3 service: No Current occupational status: retired History of recent travel: No Current gender identity: Female Physical Exam Const: GENERAL APPEARANCE: well developed ORIENTATION/CONSCIOUSNESS: Yes oriented to person, Yes oriented to place and Yes oriented to time HENMT: COMMON NORMALS: normocephalic, external ears normal and Normal external nose present HEAD & SCALP: normocephalic; no scalp tenderness FACE & SINUS: normal facial exam NOSE: Normal external nose present and No nasal discharge present EXTERNAL EAR: Yes external ears normal TEETH & GINGIVA: no abnormal tooth and associated gingiva THROAT: posterior oropharynx normal; no peritonsillar mass Eye: COMMON NORMALS: Equal, round and reactive pupils present, EOMs intact bilaterally and conjunctivae normal EYELID: eyelids normal CONJUNCTIVA: Yes conjunctivae normal PUPIL: Yes Equal, round and reactive pupils present Neck/C-Spine: GENERAL: No tracheal deviation CERVICAL SPINE: Yes normal cervical lordosis and No Cervical spine tenderness Chest: COMMONS NORMALS: normal inspection of the chest CHEST: No tenderness Resp: COMMON NORMALS: clear to auscultation bilaterally EFFORT & INSPECTION: No tachypneic, No respiratory distress, No retractions, No uses accessory muscles and No tracheal deviation AUSCULTATION: clear to auscultation bilaterally, no rhonchi, no wheezes and lung sounds not diminished Cardio: COMMON NORMALS: regular rate and regular rhythm RATE: regular rate RHYTHM: regular rhythm HEART SOUNDS: no murmurs PERIPHERAL PULSES: radial pulses present GI: INSPECTION: No abdominal distension AUSCULTATION: No Hyperactive bowel sounds present and No Hypoactive bowel sounds present PALPATION: No Guarding due to palpation present (GI) and No Rigid due to palpation PERCUSSION: no dullness to percussion and no tympanic to percussion Neuro: SENSORIUM/ORIENTATION: Yes oriented to person, Yes oriented to place and Yes oriented to time Psych: COMMON NORMALS: mental status grossly normal Skin: COMMON NORMALS: no rashes or lesions noted GENERAL SKIN EXAM: no rashes or lesions noted Course Vital Signs: Vital signs: Vital Signs Temperature 98.2 F 02/22/20 18:41 Pulse Rate 61 02/22/20 22:22 Respiratory Rate 16 02/22/20 22:22 Blood Pressure 128/66 02/22/20 22:22 Pulse Oximetry 96 02/22/20 22:22 MDM - Headache MDM Narrative: Medical decision making narrative: 74-year-old female with pain radiating from her face overhead to down her neck. Her external auditory canal shows some swelling, although I believe this is improved with her drops that she does. She has some sinus tenderness. CT is significant for sinusitis her headache is resolved after medication here. Will be continuing her Ceftin ear for sinusitis. Steroid for swelling. Discharge Plan Discharge Patient Disposition: Home Clinical Impression: Sinusitis Qualifiers: Sinusitis location: maxillary Condition: Stable Prescriptions: New Medrol (Joesph) 4 mg tablets,dose pack See Rx Instructions .ROUTE .COMPLEX Qty: 21 RF: 0 No Action furosemide 40 mg tablet 40 mg PO BID RF: 0 Januvia 100 mg tablet 100 mg PO DAILY RF: 0 metformin 500 mg tablet 1,000 mg PO DAILY RF: 0 Bystolic 10 mg tablet 10 mg PO DAILY RF: 0 cholecalciferol (vitamin D3) 1,000 unit capsule 1,000 unit PO DAILY RF: 0 omeprazole 40 mg capsule,delayed release(DR/EC) 40 mg PO BID RF: 0 levothyroxine 75 mcg capsule 75 mcg PO DAILY RF: 0 simvastatin 20 mg tablet 20 mg PO DAILY RF: 0 ropinirole 2 mg tablet 2 mg PO BID PRN (Reason: RESTLESS LEG SYNDROME) RF: 0 valsartan 160 mg tablet 160 mg PO DAILY RF: 0 potassium chloride [Klor-Con 10] 10 mEq tablet extended release 10 meq PO DAILY RF: 0 Ciprodex 0.3-0.1 % drops,suspension 4 drop EAR-BOTH BID 7 Days Qty: 7.5 RF: 0 cefdinir 300 mg capsule 300 mg PO BID 10 Days Qty: 20 RF: 0 isosorbide mononitrate 30 mg tablet extended release 24 hr 30 mg PO DAILY Qty: 30 RF: 4 citalopram [Celexa] 10 mg tablet 10 mg PO .morning Qty: 30 RF: 1 rivastigmine tartrate 3 mg capsule 3 mg PO BID Qty: 60 RF: 1 carbamazepine [Tegretol] 200 mg tablet 200 mg PO BID Qty: 60 RF: 0 magnesium oxide 400 mg magnesium Tablet 400 mg PO DAILY RF: 0 Discharge Orders: Discharge Order (Routine); Ordered 02/22/20 Ordered By: Sharan Smith Referrals: Roberth Saenz MD [Primary Care Provider] - 4-7 days Discharge Diet: Advance as tolerated Discharge Activity: Increase activity as tolerated Patient Instructions: Sinusitis (ED) Activity Restrictions/Additional Instructions: Continue the Ceftin ear you were prescribed a couple of days ago. New medication as directed. Return for worsening mental status, fever greater than 100 despite 2-3 doses of antibiotics, other concerning symptoms. Discharge Date/Time: 02/22/20 22:29 Coding Level of Care Code ED Air Pollution Specialist for Cammie Bourne
--- NOTE | 2020-02-22 20:40 | CTR_ITS ---
PROCEDURE INFORMATION: Exam: CT Head Without Contrast Exam date and time: 02/22/2020 8:46 PM Age: 74 years old Clinical indication: Pain; Headache not specified; Patient HX: C/O NAIDU and ear infection TECHNIQUE: Imaging protocol: Computed tomography of the head without contrast. Radiation optimization: All CT scans at this facility use at least one of these dose optimization techniques: automated exposure control; mA and/or kV adjustment per patient size (includes targeted exams where dose is matched to clinical indication); or iterative reconstruction. COMPARISON: CT head wo con* [id number] 10/11/2019 1:41 AM RADIATION DOSE METRICS: Total DLP (mGy-cm): 753.19 FINDINGS: Brain: There is volume loss and periventricular low density compatible with chronic small vessel disease changes. There is no acute hemorrhage, edema or mass effect. Ventricles: Normal. No ventriculomegaly. Bones/joints: Unremarkable. No acute fracture. Sinuses: There is unchanged mucosal thickening in the sinuses. Mastoid air cells: There is unchanged patchy opacification and sclerosis of the mastoid air cells compatible with chronic mastoiditis. Soft tissues: Unremarkable. CT/CT head wo con* [id number] IMPRESSION: 1. No acute intracranial abnormality. 2. There is unchanged mucosal thickening in the sinuses. 3. There is unchanged patchy opacification and sclerosis of the mastoid air cells compatible with chronic mastoiditis. Radiation Dose CTDIVOL = (mGy): DLP = 753.19 (mGy-cm)
[2020-02-22 21:08] VITALS: RESP 16; O2SAT 98
[2020-02-22] MEDS: dexamethasone 4 mg/mL INJ IVP (21:08)
[2020-02-22] MEDS: ketorolac 30 mg/mL INJ IVP (21:08)
[2020-02-22] MEDS: fentaNYL 50 mcg/mL INJ 2mL IVP (21:08)
[2020-02-22] MEDS: ondansetron 2 mg/ML SDV 2 mL 4 MG IVP (21:08)
[2020-02-22 21:11] VITALS: BP 125/60; PULSE 62; RESP 16; O2SAT 98
[2020-02-22 22:22] VITALS: BP 128/66; PULSE 61; RESP 16; O2SAT 96
== END 2020-02-22 22:29 | disposition home or self-care (01) ==
PROVIDERS: Emergency Provider Emergency Medicine; PCP Family Medicine
DX: J32.0 Chronic maxillary sinusitis (principal); E11.9 Type 2 diabetes mellitus without complications; I11.0 Hypertensive heart disease with heart failure; I50.30 Unspecified diastolic (congestive) heart failure; E78.5 Hyperlipidemia, unspecified
CPT/HCPCS: 12345; 70450; 96374; 96375; 99283; J1100; J1885; J2405; J3010

== ENCOUNTER → 2020-03-06 09:21 | Outpatient (BNVA) | payer MEDICARE, MEDICAID, SELFPAY | PROVIDERS: PCP Family Medicine; Visit Provider Nurse Practitioner Psychiatric/Mental Health | DX: F33.1 Major depressive disorder, recurrent, moderate (principal); F41.1 Generalized anxiety disorder; F02.80 Dementia in other diseases classified elsewhere, unspecified severity, without behavioral disturbance, psychotic disturbance, mood disturbance, and anxiety | CPT/HCPCS: 99213 ==

== ENCOUNTER 2020-03-22 14:29 | Emergency (ER) | payer MEDICARE, MEDICAID, SELFPAY ==
[2020-03-22 15:25] VITALS: BP 137/85; PULSE 69; RESP 16; TEMP 36.7; O2SAT 95; BMI 23.0
--- NOTE | 2020-03-22 15:57 | ED_ITS ---
HPI - Nausea/Vomiting/Diarrhea General: Chief complaint: Nausea/Vomiting/Diarrhea Stated complaint: N/V X2 DAYS Time Seen by Provider: 03/22/20 15:24 History of Present Illness: HPI Narrative: 74-year-old female comes in complaining nausea vomiting that started yesterday she denies any abdominal pain just nauseous she has had bilious vomit for the last 2 days she has several quite a bit of it staying the front of her T-shirt when she seen today. She denies any cough or shortness of breath. She denies any diarrhea no hematemesis coffee-ground emesis or hematochezia. She has not had episodes like this before in the past. She has not been around anyone is been sick red COVID to her knowledge. MD elicited complaint: nausea and vomiting Onset (ago): day(s) Description of vomiting: bilious Associated nausea: Yes Associated abdominal pain: No Location of pain: None Exacerbating factors: none Relieving factors: none Associated symtoms: Reports fatigue, anorexia, malaise, nausea and weakness; Denies altered mental status, anxiety, bloating, change in vision, chest pain, cough, diaphoresis, decreased urine output, dizziness, dysuria, epistaxis, fecal incontinence, fevers/chills, headache(s), myalgias, numbness, palpitations, rash, short of breath, syncope, tenesmus or tinnitus Treatment prior to arrival: other (Pepto-Bismol) Review of Systems Const: Reports: fatigue and malaise; Denies: diaphoresis Eyes: Denies: change in vision ENMT: Denies: tinnitus or epistaxis Card: Denies: chest pain, palpitations or syncope Resp: Denies: dyspnea, productive cough or non-productive cough GI: Reports: nausea; Denies: bloating or fecal incontinence : Denies: dysuria Skin/Breast: Denies: rash or pruritus Neuro: Denies: headache(s) or dizziness Psych: Denies: anxiety PFSH ED PFSH: Medical History AC (acromioclavicular) arthritis Anemia Carpal tunnel syndrome Cervical stenosis of spine DDD (degenerative disc disease), cervical DDD (degenerative disc disease), lumbar Dementia in other diseases Diabetes mellitus Diastolic heart failure Facet joint disease Generalized anxiety disorder HTN (hypertension) Hyperlipidemia Major depressive disorder, recurrent episode, moderate with anxious distress Osteoarthritis Restless legs syndrome (RLS) Wears hearing aid in both ears Surgical History S/P hysterectomy S/P knee replacement Bilateral S/P mastectomy Left total S/P rotator cuff repair Right Family History Other CAD (coronary artery disease) Diabetes Hypertension Social History Smoking and tobacco status: never smoked Second hand smoke exposure: No Smoking risk assessment/counseling performed?: No Alcohol intake: never Desire information about alcohol rehabilitation?: No Counseling given: No Desire information about substance/drug rehabilitation?: No Counseling given: No Adopted: No Caregiver/support person: No Lives independently: Yes Household members: none Housing: Apartment Marital status: / Number of children: 3 service: No Current occupational status: retired History of recent travel: No Current gender identity: Female Physical Exam Const: COMMON NORMALS: no acute distress EXAM LIMITATIONS: no altered mental status GENERAL APPEARANCE: cooperative and comfortable ORIENTATION/CONSCIOUSNESS: Yes awake, Yes oriented to person, Yes oriented to place and Yes oriented to time HENMT: COMMON NORMALS: normocephalic, atraumatic and hearing grossly normal bilaterally HEAD & SCALP: normocephalic and atraumatic Eye: COMMON NORMALS: Equal, round and reactive pupils present, EOMs intact bilaterally, conjunctivae normal and no scleral icterus CONJUNCTIVA: Yes conjunctivae normal PUPIL: Yes Equal, round and reactive pupils present Neck/C-Spine: COMMON NORMALS: no JVD Resp: COMMON NORMALS: normal respiratory effort, No retractions, No use of accessory muscles and clear to auscultation bilaterally AUSCULTATION: clear to auscultation bilaterally Cardio: COMMON NORMALS: no JVD, regular rate, regular rhythm and No murmurs present (Cardio) RATE: regular rate RHYTHM: regular rhythm GI: COMMON NORMALS: Soft to palpation and No hepatosplenomegaly present AUSCULTATION: Yes normoactive bowel sounds PALPATION: Yes Soft to palpation, No Tenderness to palpation present (GI), No Guarding due to palpation present (GI) and Yes No hepatosplenomegaly present Extremity: COMMON NORMALS: normal to inspection, capillary refill normal, no clubbing, cyanosis or edema, no calf tenderness and no pedal edema Neuro: SENSORIUM/ORIENTATION: Yes oriented to person, Yes oriented to place and Yes oriented to time Skin: COMMON NORMALS: no rashes or lesions noted GENERAL SKIN EXAM: no rashes or lesions noted Course Vital Signs: Vital signs: Vital Signs Temperature 98.1 F 03/22/20 15:25 Pulse Rate 69 03/22/20 15:25 Respiratory Rate 16 03/22/20 15:25 Blood Pressure 137/85 03/22/20 15:25 Pulse Oximetry 95 03/22/20 15:25 MDM - Nausea/Vomiting/Diarrhea MDM Narrative: Medical decision making narrative: Patient is feeling better after fluids. We will discharge her home with Zofran clear liquid diet advance as tolerated after 124 to 48 hours. Suspect she may have early COVID will swab her and have her remain quarantined until the results are back. Lab Data: Labs: Lab Results 03/22/20 03/22/20 03/22/20 Range/Units 15:40 15:40 16:07 WBC 7.0 (4.0-10.0) 10^3/ uL RBC 3.84 L (4.1-5.3) 10^6/u L Hgb 10.3 L (11.5-15.3) g/dL Hct 34.8 L (37.0-47.0) % MCV 90.6 (81-99) fL MCH 26.8 L (28.0-34.0) pg MCHC 29.6 L (30.0-36.0) g/dL RDW 16.8 H (12.1-15.1) % Plt Count 191 (130-400) 10^3/c mm MPV 10.0 (7.4-10.4) fL Neut % (Auto) 56.4 % Lymph % (Auto) 30.7 % Finney % (Auto) 7.5 % Eos % (Auto) 4.4 % Baso % (Auto) 0.6 % Neut # (Auto) 3.93 (1.8-7.7) 10^3/u L Lymph # (Auto) 2.1 (0.8-4.8) 10^3/u L Finney # (Auto) 0.5 (0.2-0.9) 10^3/u L Eos # (Auto) 0.3 (0.0-0.8) 10^3/u L Baso # (Auto) 0.0 (0.0-0.1) 10^3/u L Nucleated RBC % (a uto) 0 % Nucleated RBCs # 0.0 /100WBC Sodium 141 (136-145) mmol/L Potassium 3.8 (3.5-5.1) mmol/L Chloride 104 (98-107) mmol/L Carbon Dioxide 24 (22-29) mmol/L Anion Gap 16.8 (5-19) BUN 30 H (8-23) mg/dL Creatinine 1.8 H (0.5-0.9) mg/dL GFR Calculation Not Reportable Glucose 89 (65-115) mg/dL Calculated Osmolal ity 298 H (285-295) mOsm/k g Calcium 9.8 (8.5-10.5) mg/dL Total Bilirubin 0.2 (0.15-1.2) mg/dL AST 18 (0-32) U/L ALT 7 (0-33) U/L Alkaline Phosphata se 68 (35-105) IU/L Total Protein 6.6 (6.6-8.7) g/dL Albumin 4.5 (3.5-5.2) g/dL Globulin 2.1 (1.3-4.6) g/dL Lipase 27 (13-60) U/L Urine Color Straw (Yellow) Urine Appearance Clear (CLEAR) Urine pH 5 (5-7) Ur Specific Gravit y 1.015 (1.005-1.030) Urine Protein Neg (Negative) Urine Glucose (UA) Norm (Normal) Urine Ketones Negative (Negative) Urine Blood Trace H (Negative) Urine Nitrate Negative (Negative) Urine Bilirubin Neg (Negative) Urine Urobilinogen Norm (Negative) mg/dL Ur Leukocyte Yessenia ase 1+ H (Negative) Urine RBC None (0-2) /hpf Urine WBC 0-4 H (0-5) /hpf Ur Squamous Epith Cells 10-15 H (0-5) /hpf Amorphous Sediment Not Reportable Urine Bacteria Trace (NONE) /hpf Serum Ketones Negative (Negative) Discharge Plan Discharge Patient Disposition: Home Clinical Impression: Nausea & vomiting, Suspected 2019-nCoV infection Condition: Stable Prescriptions: New Zofran 4 mg tablet 4 mg PO Q6H PRN (Reason: nausea and vomiting) Qty: 15 RF: 0 No Action furosemide 40 mg tablet 40 mg PO BID RF: 0 Januvia 100 mg tablet 100 mg PO DAILY RF: 0 metformin 500 mg tablet 1,000 mg PO DAILY RF: 0 Bystolic 10 mg tablet 10 mg PO DAILY RF: 0 cholecalciferol (vitamin D3) 1,000 unit capsule 1,000 unit PO DAILY RF: 0 omeprazole 40 mg capsule,delayed release(DR/EC) 40 mg PO BID RF: 0 levothyroxine 75 mcg capsule 75 mcg PO DAILY RF: 0 simvastatin 20 mg tablet 20 mg PO DAILY RF: 0 ropinirole 2 mg tablet 2 mg PO BID PRN (Reason: RESTLESS LEG SYNDROME) RF: 0 valsartan 160 mg tablet 160 mg PO DAILY RF: 0 potassium chloride [Klor-Con 10] 10 mEq tablet extended release 10 meq PO DAILY RF: 0 citalopram [Celexa] 10 mg tablet 10 mg PO .morning Qty: 90 RF: 1 rivastigmine tartrate 3 mg capsule 3 mg PO BID Qty: 180 RF: 1 levofloxacin 500 mg tablet 500 mg PO Q24H Qty: 14 RF: 0 zonisamide [Zonegran] 25 mg capsule 25 mg PO Q12H Qty: 60 RF: 0 isosorbide mononitrate 30 mg tablet extended release 24 hr 30 mg PO DAILY Qty: 30 RF: 4 magnesium oxide 400 mg magnesium Tablet 400 mg PO DAILY RF: 0 Discharge Orders: Discharge Order (Routine); Ordered 03/22/20 Ordered By: Crow Zafar Referrals: David Chan, SENIOR MARKETING ENGINEER-C [Primary Care Provider] - Activity Restrictions/Additional Instructions: Clear liquid diet for 24 to 48 hours and advance as tolerated. If your worsening problems return. Recommend that you remain self quarantined until your Kovic test returns. Coding Level of Care Code ED Naturopathic Oncology Provider for Jimmyg Fwd Exam Comprehensive
[2020-03-22 15:58] LABS: Basophils % 0.6 %; Eosinophils # 0.3 10^3/uL (0.0-0.8); Eosinophils % 4.4 %; Hematocrit 34.8 % (37.0-47.0); Hemoglobin 10.3 g/dL (11.5-15.3); Lymphocytes # 2.1 10^3/uL (0.8-4.8); Lymphocytes % 30.7 %; Mean Corpuscular HGB Conc 29.6 g/dL (30.0-36.0); Mean Corpuscular Hemoglobin 26.8 pg (28.0-34.0); Mean Corpuscular Volume 90.6 fL (81-99); Monocytes # 0.5 10^3/uL (0.2-0.9); Monocytes % 7.5 %; Neutrophils # 3.93 10^3/uL (1.8-7.7); Neutrophils % 56.4 %; Nucleated Red Blood Cells % 0 %; Platelet Count 191 10^3/cmm (130-400); Red Blood Count 3.84 10^6/uL (4.1-5.3); Red Cell Distribution Width 16.8 % (12.1-15.1)
[2020-03-22 16:10] LABS: Ketone (Acetest) Serum Negative (Negative)
[2020-03-22 16:18] LABS: Alanine Aminotransferase 7 U/L (0-33); Albumin Level 4.5 g/dL (3.5-5.2); Alkaline Phosphatase 68 IU/L (35-105); Anion Gap 16.8 (5-19); Aspartate Amino Transferase 18 U/L (0-32); Blood Urea Nitrogen 30 mg/dL (8-23); Calcium 9.8 mg/dL (8.5-10.5); Carbon Dioxide 24 mmol/L (22-29); Chloride 104 mmol/L (98-107); Globulin 2.1 g/dL (1.3-4.6); Glucose 89 mg/dL (65-115); Lipase 27 U/L (13-60); Osmolality Calculated 298 mOsm/kg (285-295); Potassium 3.8 mmol/L (3.5-5.1); Sodium 141 mmol/L (136-145); Total Bilirubin 0.2 mg/dL (0.15-1.2); Total Protein 6.6 g/dL (6.6-8.7)
[2020-03-22 16:58] LABS: Specific Gravity, Urine 1.015 (1.005-1.030); Urine Appearance Clear (CLEAR); Urine Color Straw (Yellow); pH Urine 5 (5-7)
[2020-03-22 16:59] LABS: Add Urine Culture? No; Add Urine Microscopic? YES; Bacteria Urine TRACE /hpf; Bilirubin Urine Neg (Negative); Blood Urine Trace (Negative); Glucose Urine UA Norm (Normal); Ketones Urine Negative (Negative); Leukocyte Esterase Urine 1+ (Negative); Nitrate Urine Negative (Negative); Protein Urine Neg (Negative); Urobilinogen Urine Norm (Negative); WBC Urine 0-4 /hpf (0-5)
[2020-03-22 17:44] VITALS: BP 135/70; PULSE 75; RESP 15; O2SAT 97
--- NOTE | 2020-03-22 17:44 | PC.NURSE ---
Read and agree with assessment.
[2020-03-24 18:18] LABS: Quest SARS-CoV-2 RNA NOT DETECTED (NOT DETECTED)
--- NOTE | 2020-03-25 09:34 | PC.NURSE ---
pt called and informed of her covid results
== END 2020-03-22 17:45 | disposition home or self-care (01) ==
PROVIDERS: Emergency Provider Family Medicine; PCP Nurse Practitioner
DX: R11.2 Nausea with vomiting, unspecified (principal); Z20.828 Contact with and (suspected) exposure to other viral communicable diseases; F03.90 Unspecified dementia, unspecified severity, without behavioral disturbance, psychotic disturbance, mood disturbance, and anxiety; E11.9 Type 2 diabetes mellitus without complications; I11.0 Hypertensive heart disease with heart failure; I50.30 Unspecified diastolic (congestive) heart failure; E78.5 Hyperlipidemia, unspecified; Z79.84 Long term (current) use of oral hypoglycemic drugs
CPT/HCPCS: 12345; 36415; 80053; 81001; 82009; 83690; 85025; 87635; 99282

== ENCOUNTER 2020-03-25 10:06 | Inpatient (IN) | payer MEDICARE, MEDICAID, SELFPAY ==
[2020-03-25] VITALS (7 sets, daily range): BP systolic 98–146; BP diastolic 52–85; PULSE 72–88; RESP 14–20; TEMP 36.5–37.2; O2SAT 95–99; BMI 30.3
--- NOTE | 2020-03-25 10:28 | XRR_ITS ---
PROCEDURE INFORMATION: Exam: XR Chest, 1 View Exam date and time: 03/25/2020 10:45 AM Age: 74 years old Clinical indication: Cough and dyspnea; Prior surgery; Surgery type: Breast left; Additional info: Dyspnea/cough TECHNIQUE: Imaging protocol: XR of the chest Views: 1 view. COMPARISON: CR XR chest 1V portable [id number] 10/11/2019 1:19 AM FINDINGS: Lungs: Subtle interstitial prominence within the right lower lobe. Follow-up suggested. Pleural space: Unremarkable. No pleural effusion. No pneumothorax. Heart/Mediastinum: Unremarkable. No cardiomegaly. Bones/joints: Unremarkable. Soft tissues: axillary dissection on the left with numerous surgical clips in the left axillary region. Prior left mastectomy XR/XR chest 1V portable [id number] IMPRESSION: Subtle interstitial prominence within the right lower lobe. Follow-up suggested. Consider two-view chest.
--- NOTE | 2020-03-25 10:28 | CT_ITS ---
WS: [id number] CT HEAD NONCONTRAST HISTORY: fall/ closed head injury TECHNIQUE: Contiguous axial imaging performed through the brain in 2.5 mm imaging. Bone and soft tiss ue windows. Sagittal and coronal reformats reviewed. All CT scans at [facility] use at le ast one of these dose optimization techniques: automated exposure control; mA and/or kV adjustment pe r patient size (includes targeted exams where dose is matched to clinical indication); or iterative r econstruction. DLP: 749.28 mGy.cm COMPARISON: 02/22/2020 No acute intracranial hemorrhage, midline shift or mass effect. Mild atrophy and mild chronic microvascular ischemic disease. Motion artifact within the posterior f judith and inferior temporal lobes. Ventricles: Normal size with no hydrocephalus. Paranasal sinuses: Mucoperiosteal thickening in the ethmoid air cells. Additional mucoperiosteal thic kening within nearly the entire frontal sinuses. Mastoid air cells: Poorly pneumatized mastoid air cells. Calvarium and scalp: Hyperostosis frontalis interna. CT/CT head wo con* [id number] IMPRESSION: 1. No acute intracranial hemorrhage or edema. 2. Mild chronic microvascular ischemic disease. 3. Frontal and ethmoid sinusitis.
--- NOTE | 2020-03-25 10:29 | ECG_ITS ---
[facility] Test Date: 2020-03-25 Pat Name: Vi Hickey Department: Room: 272 Gender: Female Traffic Operations Engineer: : 1945 Requested By: Crow Lawrence Order Number: [id number] Mitchel MD: Eddy Calix M.D. Measurements Intervals [place] Rate: 79 P: -23 GA: 152 QRS: 24 QRSD: 103 T: 52 QT: 409 QTc: 471 Interpretive Statements SINUS RHYTHM Compared to ECG 10/11/2019 04:44:25 No significant changes Electronically Signed On 03-25-2020 18:36:17 CDT by Eddy Calix M.D. [id number]
--- NOTE | 2020-03-25 10:35 | ED_ITS ---
HPI - Fall General: Chief Complaint: Fall Stated Complaint: FALL Time Seen by Provider: 03/25/20 10:09 History of Present Illness: HPI Narrative: 74-year-old female comes in fell at home altered mental status. She was found this morning by her home health care workers with new bruises and abrasion above her right eye. She also has a bruise on her neck she fallen 2 days ago as well. EMS had a blood sugar of 81 in the field she states she did not take any of her diabetic medications today she did take them yesterday. She was seen within the last week for headaches work-up was negative. They are unsure how long she might have been down with the fall but she had gotten herself up by the time he home health found her. She lives at home alone. She denies any chest pain or any difficulty breathing she has moderately confused in the emergency room complaining of a little bit of a headache. complaint: fall Onset (ago): unknown Fall from: standing Fall witnessed: no Place fall occurred: home Loss of consciousness: Unsure Prolonged down time: unclear Location of injury: head and face Severity: moderate Associated symptoms-after fall: Reports confusion, difficulty walking and weakness; Denies abdominal pain, chest pain, headache(s), hematuria, lightheadedness, neck pain, numbness, short of breath or vertigo Review of Systems Const: Denies: fever(s), chills, body aches, change in appetite, fatigue or malaise ENMT: Denies: throat pain, ear or mastoid pain, nasal discharge or nasal congestion Card: Denies: chest pain or lightheadedness Resp: Denies: dyspnea, productive cough or non-productive cough GI: Denies: abdominal pain : Denies: hematuria Musc: Denies: neck pain Skin/Breast: Denies: rash or pruritus Neuro: Reports: difficulty walking and confusion; Denies: headache(s) or vertigo PFSH ED PFSH: Medical History AC (acromioclavicular) arthritis Anemia Carpal tunnel syndrome Cervical stenosis of spine DDD (degenerative disc disease), cervical DDD (degenerative disc disease), lumbar Dementia in other diseases Diabetes mellitus Diastolic heart failure Facet joint disease Generalized anxiety disorder HTN (hypertension) Hyperlipidemia Major depressive disorder, recurrent episode, moderate with anxious distress Osteoarthritis Restless legs syndrome (RLS) Wears hearing aid in both ears Surgical History S/P hysterectomy S/P knee replacement Bilateral S/P mastectomy Left total S/P rotator cuff repair Right Family History Other CAD (coronary artery disease) Diabetes Hypertension Social History Smoking and tobacco status: never smoked Second hand smoke exposure: No Smoking risk assessment/counseling performed?: No Alcohol intake: never Desire information about alcohol rehabilitation?: No Counseling given: No Desire information about substance/drug rehabilitation?: No Counseling given: No Adopted: No Caregiver/support person: No Lives independently: Yes Household members: none Housing: Apartment Marital status: / Number of children: 3 service: No Current occupational status: retired History of recent travel: No Current gender identity: Female Physical Exam Const: COMMON NORMALS: no acute distress GENERAL APPEARANCE: cooperative and comfortable ORIENTATION/CONSCIOUSNESS: Yes awake HENMT: COMMON NORMALS: normocephalic, atraumatic, hearing grossly normal bilaterally, external ears normal, EAC's normal, TM's normal bilaterally, Normal nasal mucous membranes and turbinates present, moist oral mucous membranes and oropharynx normal HEAD & SCALP: normocephalic and atraumatic NOSE: Normal nasal mucous membranes and turbinates present EXTERNAL EAR: Yes external ears normal EXTERNAL AUDITORY CANAL: EAC's normal TYMPANIC MEMBRANE: TM's normal bilaterally OTHER: Small bruise on the left side of the neck, superficial abrasion above the right along the supraorbital ridge laterally Eye: COMMON NORMALS: Equal, round and reactive pupils present, EOMs intact bilaterally, conjunctivae normal and no scleral icterus CONJUNCTIVA: Yes conjunctivae normal PUPIL: Yes Equal, round and reactive pupils present Neck/C-Spine: COMMON NORMALS: full ROM, no lymphadenopathy, supple and no JVD Lymph: LYMPHATIC: no lymphadenopathy noted and no lymphedema noted Resp: COMMON NORMALS: normal respiratory effort, No retractions, No use of accessory muscles and clear to auscultation bilaterally AUSCULTATION: clear to auscultation bilaterally Cardio: COMMON NORMALS: no JVD, regular rate, regular rhythm and No murmurs present (Cardio) RATE: regular rate RHYTHM: regular rhythm GI: COMMON NORMALS: Soft to palpation and No hepatosplenomegaly present AUSCULTATION: Yes normoactive bowel sounds PALPATION: Yes Soft to palpation, No Tenderness to palpation present (GI), No Guarding due to palpation present (GI) and Yes No hepatosplenomegaly present Extremity: COMMON NORMALS: normal to inspection, capillary refill normal, no clubbing, cyanosis or edema, no calf tenderness and no pedal edema Skin: COMMON NORMALS: no rashes or lesions noted GENERAL SKIN EXAM: no rashes or lesions noted Course Vital Signs: Vital signs: Vital Signs Temperature 98.7 F 03/31/20 04:00 Pulse Rate 58 L 03/31/20 04:00 Respiratory Rate 17 03/31/20 04:00 Blood Pressure 102/61 03/31/20 04:00 Pulse Oximetry 97 03/31/20 04:00 MDM - Fall MDM Narrative: Medical decision making narrative: We will go and admit for syncope long with rhabdomyolysis and acute kidney injury. Have discussed with Dr. García. Admission orders written patient be given IV fluids in the emergency room will need medication adjustment due to his acute kidney injury. Lab Data: Labs: Lab Results 03/25/20 03/25/20 03/25/20 Range/Units 10:26 10:32 10:32 WBC (4.0-10.0) 10^3/ uL RBC (4.1-5.3) 10^6/u L Hgb (11.5-15.3) g/dL Hct (37.0-47.0) % MCV (81-99) fL MCH (28.0-34.0) pg MCHC (30.0-36.0) g/dL RDW (12.1-15.1) % Plt Count (130-400) 10^3/c mm MPV (7.4-10.4) fL Neut % (Auto) % Lymph % (Auto) % [place] % (Auto) % Eos % (Auto) % Baso % (Auto) % Neut # (Auto) (1.8-7.7) 10^3/u L Lymph # (Auto) (0.8-4.8) 10^3/u L [place] # (Auto) (0.2-0.9) 10^3/u L Eos # (Auto) (0.0-0.8) 10^3/u L Baso # (Auto) (0.0-0.1) 10^3/u L Nucleated RBC % (a uto) % Nucleated RBCs # /100WBC Sodium (136-145) mmol/L Potassium (3.5-5.1) mmol/L Chloride (98-107) mmol/L Carbon Dioxide (22-29) mmol/L Anion Gap (5-19) BUN (8-23) mg/dL Creatinine (0.5-0.9) mg/dL GFR Calculation Glucose (65-115) mg/dL Estimat Average Gl ucose Hemoglobin A1c (4.0-6.0) % Calculated Osmolal ity (285-295) mOsm/k g Calcium (8.5-10.5) mg/dL Iron 32 L (37-145) ug/dL Total Bilirubin (0.15-1.2) mg/dL AST (0-32) U/L ALT (0-33) U/L Alkaline Phosphata se (35-105) IU/L Creatine Kinase (26-192) U/L Troponin T Baselin e (0-10) ng/L Troponin T 120 Min [place] (0-10) ng/L Delta Troponin T (0-10) ABS# Total Protein 6.2 (6.1-8.1) g/dL Albumin 3.8 (3.8-4.8) g/dL Globulin (1.3-4.6) g/dL Uevbn-6-Suhkbyoqq 0.3 (0.2-0.3) g/dL Wpcgs-1-Uxyzzozie 0.9 (0.5-0.9) g/dL Euow-2-Tdeblhyg 0.4 (0.4-0.6) g/dL Arco-7-Ximqzpcl 0.3 (0.2-0.5) g/dL Gamma Globulins 0.5 L (0.8-1.7) g/dL Abnorm Protein Ban d 1 Not Reportable Lipase (13-60) U/L Vitamin B12 265 (232-1245) pg/mL Folate (4.8-37.3) ng/mL Urine Color Yellow (Yellow) Urine Appearance Clear (CLEAR) Urine pH 5 (5-7) Ur Specific Gravit y 1.020 (1.005-1.030) Urine Protein Neg (Negative) Urine Glucose (UA) Norm (Normal) Urine Ketones Negative (Negative) Urine Blood Neg (Negative) Urine Nitrate Negative (Negative) Urine Bilirubin Neg (Negative) Urine Urobilinogen Neg (Negative) mg/dL Ur Leukocyte Yessenia ase Negative (Negative) U Abnormal Prot Ba nd 2 Not Reportable U Abnormal Prot Ba nd 3 Not Reportable Serum Ketones (Negative) Pro Electrophoresi s Int See note SARS-CoV-2 Ag (Rap id) (Negative) 03/25/20 03/25/20 03/25/20 Range/Units 10:32 10:37 10:37 WBC 10.4 H (4.0-10.0) 10^3/ uL RBC 3.88 L (4.1-5.3) 10^6/u L Hgb 10.5 L (11.5-15.3) g/dL Hct 34.9 L (37.0-47.0) % MCV 89.9 (81-99) fL MCH 27.1 L (28.0-34.0) pg MCHC 30.1 (30.0-36.0) g/dL RDW 17.1 H (12.1-15.1) % Plt Count 181 (130-400) 10^3/c mm MPV 9.9 (7.4-10.4) fL Neut % (Auto) 68.4 % Lymph % (Auto) 22.7 % [place] % (Auto) 7.5 % Eos % (Auto) 0.6 % Baso % (Auto) 0.4 % Neut # (Auto) 7.15 (1.8-7.7) 10^3/u L Lymph # (Auto) 2.4 (0.8-4.8) 10^3/u L [place] # (Auto) 0.8 (0.2-0.9) 10^3/u L Eos # (Auto) 0.1 (0.0-0.8) 10^3/u L Baso # (Auto) 0.0 (0.0-0.1) 10^3/u L Nucleated RBC % (a uto) 0 % Nucleated RBCs # 0.0 /100WBC Sodium 146 H (136-145) mmol/L Potassium 3.8 (3.5-5.1) mmol/L Chloride 107 (98-107) mmol/L Carbon Dioxide 23 (22-29) mmol/L Anion Gap 19.8 H (5-19) BUN 50 H (8-23) mg/dL Creatinine 3.8 H (0.5-0.9) mg/dL GFR Calculation Not Reportable Glucose 65 (65-115) mg/dL Estimat Average Gl ucose Hemoglobin A1c (4.0-6.0) % Calculated Osmolal ity 313 H (285-295) mOsm/k g Calcium 9.2 (8.5-10.5) mg/dL Iron (37-145) ug/dL Total Bilirubin 0.2 (0.15-1.2) mg/dL AST 34 H (0-32) U/L ALT 10 (0-33) U/L Alkaline Phosphata se 75 (35-105) IU/L Creatine Kinase 1139 H* (26-192) U/L Troponin T Baselin e (0-10) ng/L Troponin T 120 Min [place] (0-10) ng/L Delta Troponin T (0-10) ABS# Total Protein 6.5 L (6.1-8.1) g/dL Albumin 4.4 (3.8-4.8) g/dL Globulin 2.1 (1.3-4.6) g/dL Nabsn-0-Nrshufewi (0.2-0.3) g/dL Cjqsf-0-Htclyqcht (0.5-0.9) g/dL Ithz-5-Gfyoybyq (0.4-0.6) g/dL Haci-0-Qvxjmlzu (0.2-0.5) g/dL Gamma Globulins (0.8-1.7) g/dL Abnorm Protein Ban d 1 Lipase 20 (13-60) U/L Vitamin B12 (232-1245) pg/mL Folate 17.2 (4.8-37.3) ng/mL Urine Color (Yellow) Urine Appearance (CLEAR) Urine pH (5-7) Ur Specific Gravit y (1.005-1.030) Urine Protein (Negative) Urine Glucose (UA) (Normal) Urine Ketones (Negative) Urine Blood (Negative) Urine Nitrate (Negative) Urine Bilirubin (Negative) Urine Urobilinogen (Negative) mg/dL Ur Leukocyte Yessenia ase (Negative) U Abnormal Prot Ba nd 2 U Abnormal Prot Ba nd 3 Serum Ketones Negative (Negative) Pro Electrophoresi s Int SARS-CoV-2 Ag (Rap id) (Negative) 03/25/20 03/25/20 03/25/20 Range/Units 10:37 10:37 12:38 WBC (4.0-10.0) 10^3/ uL RBC (4.1-5.3) 10^6/u L Hgb (11.5-15.3) g/dL Hct (37.0-47.0) % MCV (81-99) fL MCH (28.0-34.0) pg MCHC (30.0-36.0) g/dL RDW (12.1-15.1) % Plt Count (130-400) 10^3/c mm MPV (7.4-10.4) fL Neut % (Auto) % Lymph % (Auto) % [place] % (Auto) % Eos % (Auto) % Baso % (Auto) % Neut # (Auto) (1.8-7.7) 10^3/u L Lymph # (Auto) (0.8-4.8) 10^3/u L [place] # (Auto) (0.2-0.9) 10^3/u L Eos # (Auto) (0.0-0.8) 10^3/u L Baso # (Auto) (0.0-0.1) 10^3/u L Nucleated RBC % (a uto) % Nucleated RBCs # /100WBC Sodium (136-145) mmol/L Potassium (3.5-5.1) mmol/L Chloride (98-107) mmol/L Carbon Dioxide (22-29) mmol/L Anion Gap (5-19) BUN (8-23) mg/dL Creatinine (0.5-0.9) mg/dL GFR Calculation Glucose (65-115) mg/dL Estimat Average Gl ucose 131 Hemoglobin A1c 6.2 H (4.0-6.0) % Calculated Osmolal ity (285-295) mOsm/k g Calcium (8.5-10.5) mg/dL Iron (37-145) ug/dL Total Bilirubin (0.15-1.2) mg/dL AST (0-32) U/L ALT (0-33) U/L Alkaline Phosphata se (35-105) IU/L Creatine Kinase (26-192) U/L Troponin T Baselin e 84 H (0-10) ng/L Troponin T 120 Min [place] 81.98 H (0-10) ng/L Delta Troponin T -2.02 L (0-10) ABS# Total Protein (6.1-8.1) g/dL Albumin (3.8-4.8) g/dL Globulin (1.3-4.6) g/dL Wybmp-4-Ekzbutiku (0.2-0.3) g/dL Bqhoh-7-Mjxvvqtqp (0.5-0.9) g/dL Oxlr-9-Zcdogwfr (0.4-0.6) g/dL Cmtu-2-Horqdapa (0.2-0.5) g/dL Gamma Globulins (0.8-1.7) g/dL Abnorm Protein Ban d 1 Lipase (13-60) U/L Vitamin B12 (232-1245) pg/mL Folate (4.8-37.3) ng/mL Urine Color (Yellow) Urine Appearance (CLEAR) Urine pH (5-7) Ur Specific Gravit y (1.005-1.030) Urine Protein (Negative) Urine Glucose (UA) (Normal) Urine Ketones (Negative) Urine Blood (Negative) Urine Nitrate (Negative) Urine Bilirubin (Negative) Urine Urobilinogen (Negative) mg/dL Ur Leukocyte Yessenia ase (Negative) U Abnormal Prot Ba nd 2 U Abnormal Prot Ba nd 3 Serum Ketones (Negative) Pro Electrophoresi s Int SARS-CoV-2 Ag (Rap id) (Negative) 03/25/20 Range/Units 12:40 WBC (4.0-10.0) 10^3/ uL RBC (4.1-5.3) 10^6/u L Hgb (11.5-15.3) g/dL Hct (37.0-47.0) % MCV (81-99) fL MCH (28.0-34.0) pg MCHC (30.0-36.0) g/dL RDW (12.1-15.1) % Plt Count (130-400) 10^3/c mm MPV (7.4-10.4) fL Neut % (Auto) % Lymph % (Auto) % [place] % (Auto) % Eos % (Auto) % Baso % (Auto) % Neut # (Auto) (1.8-7.7) 10^3/u L Lymph # (Auto) (0.8-4.8) 10^3/u L [place] # (Auto) (0.2-0.9) 10^3/u L Eos # (Auto) (0.0-0.8) 10^3/u L Baso # (Auto) (0.0-0.1) 10^3/u L Nucleated RBC % (a uto) % Nucleated RBCs # /100WBC Sodium (136-145) mmol/L Potassium (3.5-5.1) mmol/L Chloride (98-107) mmol/L Carbon Dioxide (22-29) mmol/L Anion Gap (5-19) BUN (8-23) mg/dL Creatinine (0.5-0.9) mg/dL GFR Calculation Glucose (65-115) mg/dL Estimat Average Gl ucose Hemoglobin A1c (4.0-6.0) % Calculated Osmolal ity (285-295) mOsm/k g Calcium (8.5-10.5) mg/dL Iron (37-145) ug/dL Total Bilirubin (0.15-1.2) mg/dL AST (0-32) U/L ALT (0-33) U/L Alkaline Phosphata se (35-105) IU/L Creatine Kinase (26-192) U/L Troponin T Baselin e (0-10) ng/L Troponin T 120 Min [place] (0-10) ng/L Delta Troponin T (0-10) ABS# Total Protein (6.1-8.1) g/dL Albumin (3.8-4.8) g/dL Globulin (1.3-4.6) g/dL Lxqee-4-Ndeulnbxf (0.2-0.3) g/dL Xryqo-2-Caxlfeojc (0.5-0.9) g/dL Urve-6-Pnvhebgi (0.4-0.6) g/dL Slym-6-Jdhstfol (0.2-0.5) g/dL Gamma Globulins (0.8-1.7) g/dL Abnorm Protein Ban d 1 Lipase (13-60) U/L Vitamin B12 (232-1245) pg/mL Folate (4.8-37.3) ng/mL Urine Color (Yellow) Urine Appearance (CLEAR) Urine pH (5-7) Ur Specific Gravit y (1.005-1.030) Urine Protein (Negative) Urine Glucose (UA) (Normal) Urine Ketones (Negative) Urine Blood (Negative) Urine Nitrate (Negative) Urine Bilirubin (Negative) Urine Urobilinogen (Negative) mg/dL Ur Leukocyte Yessenia ase (Negative) U Abnormal Prot Ba nd 2 U Abnormal Prot Ba nd 3 Serum Ketones (Negative) Pro Electrophoresi s Int SARS-CoV-2 Ag (Rap id) Negative (Negative) Discharge Plan Discharge Patient Disposition: Admitted As Inpatient Admit Provider: Stephanie García Clinical Impression: Syncope, Rhabdomyolysis, JUMANA (acute kidney injury), Anemia Condition: Stable Interventions: ED Discharge Assessment Last Done: 03/25/20 14:44 ED Charges Last Done: 03/25/20 14:44 Discharge Date/Time: 03/25/20 14:49 Coding Level of Care Code ED [employer] Equipment Repairer for Chg Fwd Exam Comprehensive
[2020-03-25 10:42] LABS: Add Urine Microscopic? NO
[2020-03-25 10:47] LABS: Urine Appearance Clear (CLEAR); Urine Color Yellow (Yellow); pH Urine 5 (5-7)
[2020-03-25 10:48] LABS: Bilirubin Urine Neg (Negative); Blood Urine Neg (Negative); Glucose Urine UA Norm (Normal); Ketones Urine Negative (Negative); Leukocyte Esterase Urine Negative (Negative); Nitrate Urine Negative (Negative); Protein Urine Neg (Negative); Urobilinogen Urine Neg (Negative)
[2020-03-25 10:57] LABS: Basophils % 0.4 %; Eosinophils # 0.1 10^3/uL (0.0-0.8); Eosinophils % 0.6 %; Hematocrit 34.9 % (37.0-47.0); Hemoglobin 10.5 g/dL (11.5-15.3); Lymphocytes # 2.4 10^3/uL (0.8-4.8); Lymphocytes % 22.7 %; Mean Corpuscular HGB Conc 30.1 g/dL (30.0-36.0); Mean Corpuscular Hemoglobin 27.1 pg (28.0-34.0); Mean Corpuscular Volume 89.9 fL (81-99); Mean Platelet Volume 9.9 fL (7.4-10.4); Monocytes # 0.8 10^3/uL (0.2-0.9); Monocytes % 7.5 %; Neutrophils # 7.15 10^3/uL (1.8-7.7); Neutrophils % 68.4 %; Nucleated Red Blood Cells % 0 %; Platelet Count 181 10^3/cmm (130-400); Red Blood Count 3.88 10^6/uL (4.1-5.3); Red Cell Distribution Width 17.1 % (12.1-15.1); White Blood Count 10.4 10^3/uL (4.0-10.0)
[2020-03-25] MEDS: ondansetron 2 mg/ML SDV 2 mL 4 MG IVP (10:57)
--- NOTE | 2020-03-25 11:06 | CT_ITS ---
WS: [id number] CT CERVICAL SPINE HISTORY: fall TECHNIQUE: Contiguous 2.5 mm axial imaging performed through the entire cervical spine. Sagittal and coronal reformats also performed. All CT scans at [facility] use at least one of these do se optimization techniques: automated exposure control; mA and/or kV adjustment per patient size (inc ludes targeted exams where dose is matched to clinical indication); or iterative reconstruction. DLP: 510.29 mGy.cm COMPARISON: 04/06/2018 Reversal of the normal cervical lordosis centered at C5 is similar to the prior study. Severe disc sp anel narrowing and desiccation at C5-6 and C6-7. Craniocervical junction is normal. Multilevel facet j oint arthritis. Severe hypertrophic facet joint arthritis at C2-3. Well-formed lytic area in the LEFT C4 facet. No acute fractures are identified. Multilevel facet joint arthritis and mild central steno sis. Most significant central stenosis at C5-6 due to vertebral body osteophytes and facet disease. T here is at least moderate central stenosis at C5-6. Visualized upper lungs are clear. CT/CT cervical spin wo con* [id number] IMPRESSION: 1. No acute cervical spine fracture. 2. Reversal of the normal cervical lordosis centered at C5 is stable. Advanced spondylitic changes and facet joint arthritis throughout the cervical spine.
[2020-03-25 11:23] LABS: Alanine Aminotransferase 10 U/L (0-33); Albumin Level 4.4 g/dL (3.5-5.2); Alkaline Phosphatase 75 IU/L (35-105); Anion Gap 19.8 (5-19); Aspartate Amino Transferase 34 U/L (0-32); Blood Urea Nitrogen 50 mg/dL (8-23); Calcium 9.2 mg/dL (8.5-10.5); Carbon Dioxide 23 mmol/L (22-29); Chloride 107 mmol/L (98-107); Globulin 2.1 g/dL (1.3-4.6); Glucose 65 mg/dL (65-115); Lipase 20 U/L (13-60); Osmolality Calculated 313 mOsm/kg (285-295); Potassium 3.8 mmol/L (3.5-5.1); Sodium 146 mmol/L (136-145); Total Bilirubin 0.2 mg/dL (0.15-1.2); Total Protein 6.5 g/dL (6.6-8.7)
[2020-03-25 11:29] LABS: Creatine Phosphokinase 1139 U/L (26-192)
[2020-03-25 11:36] LABS: Ketone (Acetest) Serum Negative (Negative)
[2020-03-25 11:51] LABS: Troponin(5th) Baseline 84 ng/L (0-10)
--- NOTE | 2020-03-25 12:22 | XRR_ITS ---
PROCEDURE INFORMATION: Exam: XR Left Shoulder Exam date and time: 03/25/2020 12:55 PM Age: 74 years old Clinical indication: Pain and injury or trauma; Fall; Blunt trauma (contusions or hematomas); Shoulder; Left TECHNIQUE: Imaging protocol: XR Left shoulder. Views: 2 or more views. COMPARISON: MRI Shoulder w/o LEFT* [id number] 06/16/2015 4:01 PM FINDINGS: Bones/joints: Negative for acute bony abnormality Soft tissues: Metallic surgical clips seen in the left axillary soft tissues XR/XR shoulder LT min 2V* [id number] IMPRESSION: 1. No acute bony abnormality. 2. Metallic surgical clips left axillary soft tissues
--- NOTE | 2020-03-25 12:29 | ECG_ITS ---
[facility] Test Date: 2020-03-25 Pat Name: Vi Hickey Department: Room: Gender: Female Hospital Chaplain: : 1945 Requested By: Crow Lawrence Order Number: [id number] Mitchel MD: Eddy Calix M.D. Measurements Intervals [place] Rate: 72 P: 27 MA: 177 QRS: 22 QRSD: 105 T: 51 QT: 423 QTc: 465 Interpretive Statements SINUS RHYTHM WITH SINUS ARRHYTHMIA Compared to ECG 10/11/2019 04:44:25 No significant changes Electronically Signed On 03-25-2020 18:37:39 CDT by Eddy Calix M.D. [email or web address]
[2020-03-25] MEDS: HYDROcodone-acetaminophen 5-325 mg Tablet 1 TAB PO (12:46)
[2020-03-25] MEDS: sodium chloride 0.9% 1,000 ML 999 ML IV (12:47)
[2020-03-25 13:15] LABS: Troponin 5 2HR 81.98 ng/L (0-10)
[2020-03-25 13:21] LABS: Troponin 5 2HR Delta -2.02 ABS# (0-10)
[2020-03-25 13:51] LABS: SARS Covid-2 Antigen Negative (Negative)
[2020-03-25] MEDS: sodium chloride 0.9% 1,000 ML 150 ML IV (15:19)
--- NOTE | 2020-03-25 15:21 | PC.NURSE ---
patient has hearing aids, glasses and a purse at bedside. her home medications were put in the pyxis
--- NOTE | 2020-03-25 16:16 | P.HP_ITS ---
Providers/Chief Complaint Admitting Physician: Stephanie García MD Primary Care Provider: David Chan, PROCUREMENT FORESTER-C Chief Complaint: FALL History of Present Illness Vi Hickey is a 74 year old female with Diabetes mellitus, Diastolic heart failure, Facet joint disease, HTN, Hyperlipidemia, Osteoarthritis, Restless legs syndrome, Trigeminal neuralgia presenting to the ER today after falling in the bathroom. She states she does not recall when she fell but states that likely was yesetrday evening. She called her friend this morning who in turn called the ambulance to bring her to the hospital Upon arrival here she was noted to have several bruises over her face and left shoulder and in some degree of pain from these. Labs were notable for elevated CK, JUMANA with cr 3.8, anemia. Recently tested for COVID via PCR when she presnted to ER with GI symptoms. Today COVID ag additionally negative. She has a chronic cough, post nasal drip and sevral CTs documenting chronci sinusitis. CXR without evidence of pneumonia per my read. UA unremarkable. She does not recall events leading to fall, but states this was not a mechanical fall. No recent changes in medications. Does not know all her medications . Her HH nurse set sup he rpill box once a week and she takes pills as instrcuted. H/o recurrent falls, headche, particularly right sided diagnosed as trigemical neuralgias, several CTs without acute stroke noted in the system. No h/o seizures. States BP is checked onec a week by HH nurse and never noted to be hypotensive. She is diabetic but has not noted hypoglycemia episodes, checks FS daily. Lives alone, has HH aide few times week Review of Systems General: Reports: 10 or more systems reviewed and unremarkable except in HPI and below Const: Denies: fever(s), chills or body aches Eyes: Denies: change in vision, blurry vision or photophobia ENMT: Reports: hoarseness; Denies: throat pain, enlarged tonsils, odynophagia or nasal congestion Card: Denies: chest pain, palpitations, irregular heart rhythm, edema, swelli ng of feet/ankles, lightheadedness, pre-syncope, dyspnea on exertion or orthopnea Resp: Denies: dyspnea, productive cough, non-productive cough, wheezing, stridor, pain on inspiration, change in phlegm color, hemoptysis or chest congestion GI: Denies: abdominal pain, nausea, vomiting, hematemesis, coffee ground emesis, dysphagia, heartburn, diarrhea, constipation, GI cramping, change in stool character, hematochezia or melena : Denies: flank pain, difficulty voiding, dysuria, urinary frequency, urinary urgency, urinary hesitancy or hematuria Musc: Denies: neck pain, back pain, extremity pain, joint swelling, joint warmth or deformity Neuro: Denies: headache(s), numbness in extremities, weakness in extremities, sensory changes, difficulty walking, frequent falls, dizziness, vertigo, behavioral changes, Slurred speech present or seizure-like activity Psych: Denies: anxiety, depression, suicidal ideation or homicidal ideation Endo: Denies: polyuria, polydipsia, tired all the time, cold intolerance or hot flashes Deric/Lymph: Denies: easy bruising or easy bleeding Medications/Allergies Home Medications Medication Instructions Recorded Confirmed Last Taken Type cholecalciferol (vitamin D3) 25 1,000 unit PO DAILY cap 07/09/19 03/25/20 03/24/20 History mcg (1,000 unit) capsule furosemide 40 mg tablet 40 mg PO BID 07/09/19 03/25/20 03/24/20 History levothyroxine 75 mcg capsule 75 mcg PO DAILY cap 07/09/19 03/25/20 03/24/20 History nebivolol 10 mg tablet 10 mg PO DAILY tab 07/09/19 03/25/20 03/24/20 History omeprazole 40 mg capsule,delayed 40 mg PO BID 07/09/19 03/25/20 03/24/20 History release potassium chloride 10 mEq 10 meq PO DAILY tab 07/09/19 03/25/20 03/24/20 History tablet,extended release ropinirole 2 mg tablet 2 mg PO BID PRN 07/09/19 03/25/20 03/24/20 History simvastatin 20 mg tablet 20 mg PO DAILY tab 07/09/19 03/25/20 03/24/20 History sitagliptin 100 mg tablet 100 mg PO DAILY tab 07/09/19 03/25/20 03/24/20 Histor y valsartan 160 mg tablet 160 mg PO DAILY tab 07/09/19 03/25/20 03/24/20 History magnesium oxide 400 mg PO DAILY 10/11/19 03/25/20 03/24/20 History isosorbide mononitrate 30 mg 30 mg PO DAILY #30 tab 12/10/19 03/25/20 03/24/20 Rx tablet,extended release 24 hr rivastigmine tartrate 3 mg capsule 3 mg PO BID #180 cap 03/06/20 03/25/20 03/24/20 Rx levofloxacin 500 mg tablet 500 mg PO Q24H #14 tab 03/12/20 03/25/20 03/24/20 Rx zonisamide 25 mg capsule 25 mg PO Q12H #60 cap 03/12/20 03/25/20 03/24/20 Rx ondansetron HCl [Zofran] 4 mg PO Q6H PRN #15 tab 03/22/20 03/25/20 Unknown Rx Celexa 10 mg PO DAILY 03/25/20 03/25/20 03/24/20 History carbamazepine 200 mg PO BID 03/25/20 03/25/20 03/24/20 History irbesartan 150 mg PO DAILY 03/25/20 03/25/20 03/24/20 History metformin 1,000 mg PO DAILY 03/25/20 03/25/20 03/24/20 History Allergies Allergy/AdvReac Type Severity Reaction Status Date / Time NAYELI Inhibitors Allergy Unknown Unknown Verified 02/19/20 09:15 Penicillins Allergy Unknown Unknown Verified 03/25/20 17:39 Sulfa (Sulfonamide Allergy Unknown Unknown Verified 02/19/20 09:15 Antibiotics) PFSH Acute PFSH: Medical History AC (acromioclavicular) arthritis Anemia Carpal tunnel syndrome Cervical stenosis of spine DDD (degenerative disc disease), cervical DDD (degenerative disc disease), lumbar Dementia in other diseases Diabetes mellitus Diastolic heart failure Facet joint disease Generalized anxiety disorder HTN (hypertension) Hyperlipidemia Major depressive disorder, recurrent episode, moderate with anxious distress Osteoarthritis Restless legs syndrome (RLS) Wears hearing aid in both ears Surgical History S/P hysterectomy S/P knee replacement Bilateral S/P mastectomy Left total S/P rotator cuff repair Right Family History Other CAD (coronary artery disease) Diabetes Hypertension Social History Smoking and tobacco status: never smoked Second hand smoke exposure: No Smoking risk assessment/counseling performed?: No Alcohol intake: never Desire information about alcohol rehabilitation?: No Counseling given: No Desire information about substance/drug rehabilitation?: No Counseling given: No Adopted: No Caregiver/support person: No Lives independently: Yes Household members: none Housing: Apartment Marital status: / Number of children: 3 service: No Current occupational status: retired History of recent travel: No Current gender identity: Female Vitals/I&O/Wt Last Vital Signs Temp 98.8 F 03/25/20 14:13 Pulse 88 03/25/20 14:44 Resp 18 03/25/20 14:44 BP 146/85 03/25/20 14:44 Pulse Ox 98 03/25/20 14:44 Weight last 48 hrs Weight 75.296 kg Physical Exam Const: COMMON NORMALS: no acute distress, average body habitus, patient oriented x3 and alert OTHER: appears older than stated age, chronically ill appearing, noted brusing over right side of forehead and above left shoulder HENMT: COMMON NORMALS: normocephalic and atraumatic HEAD & SCALP: normocephalic Eye: COMMON NORMALS: Equal, round and reactive pupils present, EOMs intact bilaterally, conjunctivae normal and no scleral icterus CONJUNCTIVA: Yes conjunctivae normal PUPIL: Yes Equal, round and reactive pupils present Neck/C-Spine: COMMON NORMALS: no JVD Resp: COMMON NORMALS: normal respiratory effort, No retractions, No use of accessory muscles, clear to auscultation bilaterally and percussion normal AUSCULTATION: clear to auscultation bilaterally PERCUSSION: percussion normal Cardio: COMMON NORMALS: no JVD, regular rate, regular rhythm, S1 normal heart sound present, S2 normal heart sound present, No gallops present (Cardio), No clicks present (Cardio), No murmurs present (Cardio), No rub (Cardio) and Peripheral pulses 2+ throughout RATE: regular rate RHYTHM: regular rhythm HEART SOUNDS: S1 normal heart sound present and S2 normal heart sound present PERIPHERAL PULSES: Peripheral pulses 2+ throughout GI: COMMON NORMALS: Normal to inspection, nondistended, normoactive bowel sounds present, Soft to palpation, non-tender, No hepatosplenomegaly present, no masses and no bruits PALPATION: Yes Soft to palpation and Yes No hepatosplenomegaly present Extremity: COMMON NORMALS: normal to inspection, full ROM, capillary refill normal, no joint enlargement, no clubbing, cyanosis or edema, no calf tenderness and no pedal edema Neuro: COMMON NORMALS: patient oriented x3, CN's II-XII intact bilaterally, moves all extremities, no focal motor deficits, no sensory deficits noted, deep tendon reflexes 2+ bilaterally and gait normal SENSORIUM/ORIENTATION: Yes alert Psych: COMMON NORMALS: mental status grossly normal, Normal thought process present, cooperative, normal affect, speech normal, activity/motor behavior normal, denies hallucinations, denies homicidal ideation and denies suicidal ideation SPEECH: Yes normal speech THOUGHT PROCESS: Normal thought process present Skin: COMMON NORMALS: no rashes or lesions noted, no wounds, turgor normal, no jaundice, no petechiae and no mottling GENERAL SKIN EXAM: no rashes or l esions noted and turgor normal Data : 03/25/20 10:37 03/25/20 10:37 A&P Assessment and plan (1) Syncope: CT head negative for acute events Check carotid doppler, echocardiogram orthostatics MRI brain given chronic headache, facial pain and recurrent falls with unrevealing CT head check [id number] ?hypoglycemic events telemetry monitoring Cannot rule out TIA Status: Acute Qualifiers: Syncope type: unspecified Qualified Code(s): R55 - Syncope and collapse (2) Recurrent falls: As above may be syncopal events Seizures cannot be ruled out Status: Acute (3) Rhabdomyolysis: Likely secondary to being down on the floor for an unknown period of time IV hydration carefully NS @ 100cc/hr unknown why she is on lasix last ECHo 2015 with normal EF Status: Acute Qualifiers: Encounter type: initial encounter Rhabdomyolysis type: traumatic Qualified Code(s): T79.6XXA - Traumatic ischemia of muscle, initial encounter (4) JUMANA (acute kidney injury): UA without active sediment check ur creat and urine lytes CT KUB to r/o obstruction Per drug list, there is irbesartan and valsartan on list, needs to be clarified. Irbesartan not seen on PCPs notes. HH nurse sets up pill box once a week but patient take sit herself ?reliability Stop ARBs, hold lasix for now hold metformin Status: Acute (5) Trigeminal neuralgia: carbamazepine stoppe don last PCP visit continue zonisamide for now Status: Acute (6) Generalized anxiety disorder: Status: Acute (7) Anemia: check iron, folate and b12 SPEP, UPEP given JUMANA and anemia Status: Acute Qualifiers: Anemia type: unspecified type Qualified Code(s): D64.9 - Anemia, unspec ified (8) Chronic sinusitis: no role for recurrent abx in the absence of acute bacterial sinusitis. Stop levaquin flonase or symptomatic rx chronic cough related to post nasal drip most likely tessalon pearls prn Status: Acute Qualifiers: Sinusitis location: sphenoidal Qualified Code(s): J32.3 - Chronic sphenoidal sinusitis (9) Diabetes: insilun sliding scale Status: Acute Qualifiers: Diabetes mellitus complication status: without complication Diabetes mellitus detention insulin use: without detention use Diabetes mellitus type: type 2 Qualified Code(s): E11.9 - Type 2 diabetes mellitus without complications Additional A&P Information DNR/DNI per discussion with patient DVt ppx: heparin Attestations Medical Necessity Statement*: anticipate >2midnght admissionf or management and evlaution of JUMANA, recurrent falls, possibly syncopal event Coding Level of Care Code Acute Baggage Porter for [facility] Fwd Diagnoses Syncope R55 Syncope type: unspecified Recurrent falls R29.6 Rhabdomyolysis T79.6XXA Encounter type: initial encounter Rhabdomyolysis type: traumatic JUMANA (acute kidney injury) N17.9 Trigeminal neuralgia G50.0 Generalized anxiety disorder F41.1 Anemia D64.9 Anemia type: unspecified type Chronic sinusitis J32.3 Sinusitis location: sphenoidal Diabetes E11.9 Diabetes mellitus complication status: without complication Diabetes mellitus detention insulin use: without detention use Diabetes mellitus type: type 2
--- NOTE | 2020-03-25 16:20 | CTR_ITS ---
PROCEDURE INFORMATION: Exam: CT Abdomen And Pelvis Without Contrast Exam date and time: 03/25/2020 4:40 PM Age: 74 years old Clinical indication: Condition or disease; Kidney or ureter condition; Hydronephrosis; Additional info: Gildardo, CR 3.8 TECHNIQUE: Imaging protocol: Computed tomography of the abdomen and pelvis without contrast. Radiation optimization: All CT scans at this facility use at least one of these dose optimization techniques: automated exposure control; mA and/or kV adjustment per patient size (includes targeted exams where dose is matched to clinical indication); or iterative reconstruction. COMPARISON: CT abdomen pelvis w con* [id number] 09/16/2016 10:19 AM RADIATION DOSE METRICS: Total DLP (mGy-cm): 1242.48 FINDINGS: Lungs: Limited assessment lung bases reveals mild dependent atelectasis with evidence of COPD/chronic bronchitis. Stable 4 mm small granuloma right lower lobe stable since 09/16/2016. No follow-up recommended. Liver: Liver with scattered calcified granulomas of antecedent disease. Liver otherwise unremarkable. No visible hepatic mass or cystic structure. Gallbladder and bile ducts: Gallbladder unremarkable. No visible formed cholelithiasis. Pancreas: Mild atrophy of the pancreas. No visible pancreatic ductal ectasia. Spleen: Normal. No splenomegaly. Adrenals: Normal. No mass. Kidneys and ureters: No hydronephrosis or perinephric fluid bilaterally. No visible nephrolithiasis. No visible renal mass or cortical cysts. Stomach and bowel: Nonobstructive bowel pattern. No evidence for acute diverticulitis or significant diverticulosis coli. No visible significant 8 dynamic or reactive ileus. Appendix: No evidence of appendicitis. Intraperitoneal space: Unremarkable. No free air. No significant fluid collection. Vasculature: The abdominal aorta is nonaneurysmal. Moderate arterial sclerotic disease. Lymph nodes: Unremarkable. No enlarged lymph nodes. Urinary bladder: Distended urinary bladder. No filling defect. No asymmetrical bladder wall thickening. Reproductive: Status post hysterectomy. Bones/joints: Evidence of osteolytic metastatic focus involving the L2 vertebral body measuring 18 mm in diameter. Second metastatic osteolytic destructive focus right ilium just below the anterior superior iliac spine measuring 15 mm x 8 mm. Osteolytic focus involving the posterior right 8th rib measuring 13 mm in diameter. Age-appropriate degenerative disease and degenerative disc disease of the spine. Facet arthrosis. No visible acute osseous abnormality. Soft tissues: Evidence of previous right lower quadrant ventral hernia repair. Other findings: Motion artifact. CT/CT kidney stone [id number] IMPRESSION: 1. 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 2. No evidence for hydronephrosis or perinephric fluid of the kidneys. Both kidneys unremarkable. 3. Other nonurgent, nonemergent, chronic common age related findings as discussed in text above. Radiation Dose CTDIVOL = (mGy): DLP = 1242.48 (mGy-cm)
--- NOTE | 2020-03-25 16:29 | ECG_ITS ---
[facility] Test Date: 2020-03-25 Pat Name: Vi Hickey Department: Room: 272 Gender: Female Associate Financial Planner: : 1945 Requested By: Crow Lawrence Order Number: [id number] Mitchel MD: Eddy Calix M.D. Measurements Intervals [place] Rate: 78 P: -39 CA: 160 QRS: 11 QRSD: 98 T: 30 QT: 405 QTc: 462 Interpretive Statements SINUS RHYTHM Compared to ECG 03/25/2020 13:03:40 Sinus arrhythmia no longer present Electronically Signed On 03-25-2020 18:37:52 CDT by Eddy Calix M.D. [id number]
[2020-03-25 17:11] LABS: Troponin 5 6HR 71.27 ng/L (0-10)
[2020-03-25 17:44] LABS: Glucose Point of Care 49 mg/dL (70-110)
[2020-03-25] MEDS: pantoprazole DR 40 mg Tablet PO (17:48)
[2020-03-25] MEDS: ropinirole 2 mg Tablet PO (17:48)
[2020-03-25] MEDS: heparin 5,000 unit/mL INJ 1 mL 5000 UNIT SUBCUT (17:48)
[2020-03-25 18:24] LABS: Glucose Point of Care 87 mg/dL (70-110)
[2020-03-25 18:26] LABS: Iron 32 ug/dL (37-145); Vitamin B12 265 pg/mL (232-1245)
[2020-03-25 18:52] LABS: Folate Level 17.2 ng/mL (4.8-37.3)
[2020-03-25 19:40] LABS: Urine Creatinine 108 mg/dL (28-217); Urine Random Sodium 93 mmol/L
[2020-03-25 20:51] LABS: Glucose Point of Care 112 mg/dL (70-110)
[2020-03-25] MEDS: acetaminophen 325 mg Tablet 650 MG PO (22:01)
[2020-03-25 22:41] LABS: Estmated Average Glucose 131; Hemoglobin A1C 6.2 % (4.0-6.0)
[2020-03-26] MEDS: ondansetron 2 mg/ML SDV 2 mL 4 MG IVP ×3 (00:43→14:45)
[2020-03-26 03:50] VITALS: BP 106/68; PULSE 72; RESP 18; TEMP 36.9; O2SAT 95
[2020-03-26 04:15] LABS: Basophils % 0.4 %; Eosinophils # 0.2 10^3/uL (0.0-0.8); Eosinophils % 2.4 %; Hematocrit 31.8 % (37.0-47.0); Hemoglobin 9.5 g/dL (11.5-15.3); Lymphocytes # 2.7 10^3/uL (0.8-4.8); Lymphocytes % 36.8 %; Mean Corpuscular HGB Conc 29.9 g/dL (30.0-36.0); Mean Corpuscular Hemoglobin 26.9 pg (28.0-34.0); Mean Corpuscular Volume 90.1 fL (81-99); Mean Platelet Volume 9.7 fL (7.4-10.4); Monocytes # 0.6 10^3/uL (0.2-0.9); Monocytes % 8.6 %; Neutrophils # 3.84 10^3/uL (1.8-7.7); Neutrophils % 51.5 %; Nucleated Red Blood Cells % 0 %; Platelet Count 162 10^3/cmm (130-400); Red Blood Count 3.53 10^6/uL (4.1-5.3); Red Cell Distribution Width 17.2 % (12.1-15.1); White Blood Count 7.5 10^3/uL (4.0-10.0)
[2020-03-26] MEDS: heparin 5,000 unit/mL INJ 1 mL 5000 UNIT SUBCUT ×2 (04:25→17:17)
[2020-03-26 04:42] LABS: Alanine Aminotransferase 11 U/L (0-33); Albumin Level 3.7 g/dL (3.5-5.2); Alkaline Phosphatase 68 IU/L (35-105); Anion Gap 13.5 (5-19); Aspartate Amino Transferase 35 U/L (0-32); Blood Urea Nitrogen 43 mg/dL (8-23); Carbon Dioxide 23 mmol/L (22-29); Chloride 109 mmol/L (98-107); Glucose 76 mg/dL (65-115); Osmolality Calculated 304 mOsm/kg (285-295); Potassium 3.5 mmol/L (3.5-5.1); Sodium 142 mmol/L (136-145); Total Bilirubin 0.2 mg/dL (0.15-1.2); Total Protein 5.7 g/dL (6.6-8.7)
[2020-03-26 04:48] LABS: Creatine Phosphokinase 1074 U/L (26-192)
[2020-03-26 05:15] LABS: Erythrocyte Sedimentation Rate 20 mm/hr (0-15)
[2020-03-26] MEDS: sodium chloride 0.45% 1,000 ML 75 ML IV ×2 (05:28→21:40)
--- NOTE | 2020-03-26 06:00 | USCV_ITS ---
Vi Hickey Age: 74 Gender: F : 1945 Exam Date: 03/26/2020 09:05 Ordering Phys: Stephanie García MD Technologist: Lili Martins [place] [facility] [place]: Recurrent falls syncopal episode Risk Factors: diabetic Previous Vascular Surgery: none Right Brachial BP: / Left Brachial BP: / Right Left Velocity (cm/s) Spectral Plaque Velocity (cm/s) Spectral Plaque Syst/Diast Broadening Syst/Diast Broadening 94.80/ 15.40 Prox CCA 84.90 / 18.70 88.20/ 22.10 Mid CCA 90.40 / 19.80 86.00/ 17.60 Distal CCA 84.60 / 17.90 98.10/ 12.10 Prox ICA 73.90 / 16.50 Hetro 76.60/ 23.30 Mid ICA 60.70 / 17.90 58.20/ 14.10 Distal ICA 67.30 / 19.80 47.50 ECA 94.70 1.14 ICA/CCA 0.87 Antegrade Vertebral Antegrade 68.40/ 14.00 cm/s 50.70/ 13.20 cm/s Tri Subclavian Bi 162.9 120.2 0 0 FINDINGS Comparison: none available. No significant elevation of systolic or diastolic velocities. Waveforms are normal. No significant amount of calcified plaque or intimal thickening identified. Minimal bilateral, intimal thickening with no elevation of velocity. CONCLUSIONS Bilateral ICA stenosis less than 50%. Minimal carotid atherosclerosis. Dr. Blaire Rivero DO (Electronically Signed) Final Date: 26 March 2020 14:45 S
[2020-03-26 06:14] LABS: Glucose Point of Care 76 mg/dL (70-110)
[2020-03-26] MEDS: acetaminophen 325 mg Tablet 650 MG PO ×2 (07:43→14:45)
[2020-03-26 07:46] VITALS: BP 122/79; PULSE 71; RESP 18; TEMP 36.8; O2SAT 97
--- NOTE | 2020-03-26 08:15 | PC.NURSE ---
pt able to take morning PO meds well. pt stated minor pain and nausea this am. relieved with po tylenol and IV zofran. repositioned pt and is now watching TV
[2020-03-26] MEDS: fluticasone nasal spray 16gm Btl 1 SPRAY NASAL (08:58)
[2020-03-26] MEDS: citalopram 20 mg Tablet 10 MG PO (08:59)
[2020-03-26] MEDS: pantoprazole DR 40 mg Tablet PO ×2 (08:59→17:17)
[2020-03-26] MEDS: atorvastatin 40 mg Tablet 20 MG PO (08:59)
[2020-03-26] MEDS: levothyroxine 50 mcg Tablet 75 MCG PO (08:59)
[2020-03-26] MEDS: isosorbide mononitrate ER 30 mg Tablet PO (08:59)
[2020-03-26] MEDS: ropinirole 2 mg Tablet PO (10:03)
--- NOTE | 2020-03-26 10:15 | PC.NURSE ---
talked to son, Davie, and discussed pt care as well as new results from morning labs. Davie voiced no other concerns.
[2020-03-26 10:51] LABS: Glucose Point of Care 126 mg/dL (70-110)
[2020-03-26 12:00] VITALS: BP 112/70; PULSE 57; RESP 18; TEMP 36.9; O2SAT 95
[2020-03-26 15:13] VITALS: BP 112/70; PULSE 58; RESP 20; TEMP 36.9; O2SAT 96
[2020-03-26 16:54] LABS: Glucose Point of Care 120 mg/dL (70-110)
--- NOTE | 2020-03-26 17:07 | USCV_ITS ---
Vi Hickey Age: 74 Gender: F : 1945 Exam Date: 03/26/2020 09:28 Ordering Phys: Stephanie García MD Technologist: Sebastian Cabrales Exam Location: [facility] – [place] Indication: Recurrent syncopal episodes BP: 62 / 166 HR: 71 Rhythm: Sinus Technical Quality: Suboptimal MEASUREMENTS (Male / Female) Normal Values 2D ECHO LV Diastolic Diameter PLAX 3.5 cm 4.2 - 5.9 / 3.9 - 5.3 cm LV Systolic Diameter PLAX 2.1 cm LV Chamber Size 3.4 cm IVS Diastolic Thickness 1.3 cm 0.6 - 1.0 / 0.6 - 0.9 cm IVS Systolic Thickness 1.5 cm LVPW Diastolic Thickness 0.8 cm 0.6 - 1.0 / 0.6 - 0.9 cm LVPW Systolic Thickness 1.3 cm RV Chamber Size 2.4 cm LVOT Diameter 2.1 cm LV Ejection Fraction 2D Teich 73.8 % LV Ejection Fraction MOD 2C 65.0 % LV Ejection Fraction 2C AL 67.4 % LA Diameter 3.3 cm LA Width 3.1 cm LA Height 6.2 cm RA Width 2.2 cm RA Height 4.7 cm Aorta at Sinotubular Diameter 2.1 cm M-MODE LV Diastolic Diameter MM 4.9 cm 4.2 - 5.9 / 3.9 - 5.3 cm LV Systolic Diameter MM 3.3 cm LV Ejection Fraction MM Teich 61.1 % IVS Diastolic Thickness MM 0.9 cm 0.6 - 1.0 / 0.6 - 0.9 cm IVS Systolic Thickness MM 1.3 cm LVPW Diastolic Thickness MM 0.9 cm 0.6 - 1.0 / 0.6 - 0.9 cm LVPW Systolic Thickness MM 1.5 cm Aortic Annulus Diameter 3.4 cm LA Ao Ratio MM 1.2 MV E Point Septal Separation 0.4 cm DOPPLER AV Peak Velocity 149.0 cm/s LVOT Peak Velocity 136.0 cm/s AV Area Cont Eq vti 2.9 cm squared AV Area Cont Eq pk 3.1 cm squared MV Area PHT 3.3 cm squared Mitral E to A Ratio 1.0 MV E' Velocity 47.5 cm/s Mitral E to MV E' Ratio 9.0 Mitral E to LV E' Lateral Ratio 7.5 Mitral E to LV E' Septal Ratio 11.4 TR Peak Velocity 215.2 cm/s TR Peak Gradient 18.5 mmHg TV Peak E Velocity 41.0 cm/s Right Atrial Pressure 3.0 mmHg Pulmonary Artery Systolic Pressu 21.5 mmHg PV Peak Velocity 60.0 cm/s RV Acceleration Time 0.1 s RV Ejection Time 0.3 s RV AcT/ET 0.2 FINDINGS Left Ventricle Normal left ventricular cavity size. Normal left ventricular systolic function. No regional wall motion abnormalities. Left ventricular ejection fraction is estimated at 60 %. Grade I/IV diastolic dysfunction (abnormal relaxation filling pattern), normal to mildly elevated filling pressures. Right Ventricle The right ventricle is normal in size and function. Right Atrium The right atrium is normal in size. Left Atrium The left atrium is normal in size. Mitral Valve Moderately thickened mitral valve. No mitral valve stenosis. Mild-moderate mitral valve regurgitation. Aortic Valve Aortic valve sclerosis without stenosis or regurgitation. Tricuspid Valve Moderate tricuspid valve regurgitation. Pulmonic Valve Structurally normal pulmonic valve without significant stenosis. There is no pulmonic regurgitation. Pericardium Normal pericardium without effusion. Aorta Normal ascending aorta dimension. CONCLUSIONS 1-Normal left ventricular cavity size. Normal left ventricular systolic function. No regional wall motion abnormalities. Left ventricular ejection fraction is estimated at 60 %. Grade I/IV diastolic dysfunction (abnormal relaxation filling pattern), normal to mildly elevated filling pressures. 2-Moderately thickened mitral valve. No mitral valve stenosis. Mild-moderate mitral valve regurgitation. 3-Moderate tricuspid valve regurgitation. 4-There is no pericardial effusion. 5-Pulmonary artery systolic pressure is within normal limits. 6-Right atrial pressure is around 5 mm of mercury. 7-When compared to the prior echocardiogram dated 10/07/2013, there appeared to be mild to moderate mitral and moderate tricuspid valve regurgitation now Eddy Calix MD (Electronically Signed) Final Date: 26 March 2020 18:17 S
--- NOTE | 2020-03-26 17:37 | PM.PN ---
Subjective Subjective: Interval history: Patient continues to feel weak. Creatinine is improving to 2.5 today. CAT scan was performed yesterday to evaluate evaluate for any obstructive uropathy. CT was negative for the same, however it ended up showing multiple osteolytic lesions involving the spine ribs and iliac region. Findings appear to be most consistent with that of malignancy. Myeloma remains a concern given deterioration in kidney function and anemia. SPEP UPEP has been sent and remains pending at this time. Medications: Reviewed: Yes Vitals/I&O/Wt Last Vital Signs Temp 98.4 F 03/26/20 15:13 Pulse 58 L 03/26/20 15:13 Resp 20 H 03/26/20 15:13 BP 112/70 03/26/20 15:13 Pulse Ox 96 03/26/20 15:13 03/26/20 03/26/20 03/26/20 06:59 14:59 22:59 Intake Total 480 / 480 Output Total 500 / 1500 640 / 640 Balance -500 / -780 480 / 480 -640 / -160 Weight last 48 hrs Weight 75.296 kg Physical Exam Narrative: EXAM NARRATIVE: GEN: Awake, alert and oriented, no acute distress CVS: S1S2 N RS: CTA B/L Abd: Soft, nt/nd , bs+ SPECIFICATION WRITER: no focal neuro deficits Urinary Catheter Management^: Phillips: Cath Placed During This Visit: yes Reason for Continuing Indwelling Catheter: Other Urinary Catheter Date of Insertion: 03/25/20 Urinary Catheter Time of Insertion: 18:18 Data : 03/26/20 03:34 03/26/20 03:34 A&P Assessment and plan (1) Syncope: CT head negative for acute events Carotid Doppler without any significant stenosis. 2D echocardiogram remains pending. No acute events on telemetry. Orthostatics check HbA1c at 6.2, hypoglycemic events cannot be excluded. Cannot rule out TIA Status: Acute Qualifiers: Syncope type: unspecified Qualified Code(s): R55 - Syncope and collapse (2) Recurrent falls: As above May be syncopal events Status: Acute (3) Rhabdomyolysis: Likely secondary to being down on the floor for an unknown period of time IV hydration carefully NS @ 75cc/hr Patient appears to be euvolemic. Creatinine is currently improving. 2D echocardiogram remains pending to estimate EF and diastolic function. Status: Acute Qualifiers: Rhabdomyolysis type: traumatic Encounter type: initial encounter Qualified Code(s): T79.6XXA - Traumatic ischemia of muscle, initial encounter (4) JUMANA (acute kidney injury): UA without active sediment CT KUB to r/o obstruction negative for the same, however incidentally showed multiple osteolytic lesions in the spine and ribs and hips which are awaiting further characterization. Ordered an SPEP and UPEP which remains pending at this time. Will additionally arrange for a bone biopsy which would be completed as outpatient if patient is discharged by that time. Per drug list, there is irbesartan and valsartan on list, needs to be clarified. Irbesartan not seen on PCPs notes. HH nurse sets up pill box once a week but patient take sit herself ?reliability Stop ARBs, hold lasix for now hold metformin Status: Acute (5) Trigeminal neuralgia: carbamazepine stoppe don last PCP visit continue zonisamide for now Status: Acute (6) Generalized anxiety disorder: Status: Acute (7) Anemia: check iron, folate and b12 SPEP, UPEP given JUMANA and anemia Status: Acute Qualifiers: Anemia type: unspecified type Qualified Code(s): D64.9 - Anemia, unspecified (8) Chronic sinusitis: no role for recurrent abx in the absence of acute bacterial sinusitis. Stop levaquin flonase or symptomatic rx chronic cough related to post nasal drip most likely tessalon pearls prn Status: Acute Qualifiers: Sinusitis location: sphenoidal Qualified Code(s): J32.3 - Chronic sphenoidal sinusitis (9) Diabetes: insilun sliding scale Status: Acute Qualifiers: Diabetes mellitus type: type 2 Diabetes mellitus vermin exterminator insulin use: without vermin exterminator use Diabetes mellitus complication status: without complication Qualified Code(s): E11.9 - Type 2 diabetes mellitus without complications (10) Bone metastasis: Status: Acute Additional A&P Information DNR/DNI per discussion with patient DVt ppx: heparin All updates were discussed with patient, patient's son at bedside and patient's [id number] who joint via telephone conference. Attestations Medical Necessity Statement*: Rhabdomyolysis, JUMANA on CKD, slowly improving, newly discovered bony metastatic lesions of unknown primary. Coding Level of Care Code Acute Track And Field Coach for Cammie Bourne Diagnoses Syncope R55 Syncope type: unspecified Recurrent falls R29.6 Rhabdomyolysis T79.6XXA Rhabdomyolysis type: traumatic Encounter type: initial encounter JUMANA (acute kidney injury) N17.9 Trigeminal neuralgia G50.0 Generalized anxiety disorder F41.1 Anemia D64.9 Anemia type: unspecified type Chronic sinusitis J32.3 Sinusitis location: sphenoidal Diabetes E11.9 Diabetes mellitus type: type 2 Diabetes mellitus vermin exterminator insulin use: without snf use Diabetes mellitus complication status: without complication Bone metastasis C79.51
--- NOTE | 2020-03-26 18:33 | PC.NURSE ---
END OF SHIFT SUMMARY pt able to take morning and PO meds well. no insulin given today due to blood sugars being lower than sliding scale. pt very pleasant. IV patent. pt A/O to place, name, and . pt is hard of hearing, but has hearing aids at bedside. pt is resting in bed and is watching TV.
[2020-03-26 19:31] VITALS: BP 118/72; PULSE 68; RESP 14; TEMP 36.7; O2SAT 97
[2020-03-26 21:02] LABS: Glucose Point of Care 131 mg/dL (70-110)
[2020-03-27] VITALS: BP 116/69; PULSE 53; RESP 16; TEMP 36.4; O2SAT 96
[2020-03-27] MEDS: acetaminophen 325 mg Tablet 650 MG PO (00:52)
[2020-03-27] MEDS: ropinirole 2 mg Tablet PO ×2 (00:53→21:33)
[2020-03-27 03:37] LABS: Basophils # 0.1 10^3/uL (0.0-0.1); Basophils % 0.6 %; Eosinophils # 0.4 10^3/uL (0.0-0.8); Eosinophils % 4.5 %; Hematocrit 33.4 % (37.0-47.0); Hemoglobin 9.8 g/dL (11.5-15.3); Lymphocytes # 3.2 10^3/uL (0.8-4.8); Lymphocytes % 40.7 %; Mean Corpuscular HGB Conc 29.3 g/dL (30.0-36.0); Mean Corpuscular Hemoglobin 26.2 pg (28.0-34.0); Mean Corpuscular Volume 89.3 fL (81-99); Mean Platelet Volume 9.6 fL (7.4-10.4); Monocytes # 0.7 10^3/uL (0.2-0.9); Monocytes % 8.4 %; Neutrophils # 3.53 10^3/uL (1.8-7.7); Neutrophils % 45.5 %; Nucleated Red Blood Cells % 0 %; Platelet Count 140 10^3/cmm (130-400); Red Blood Count 3.74 10^6/uL (4.1-5.3); Red Cell Distribution Width 16.5 % (12.1-15.1); White Blood Count 7.8 10^3/uL (4.0-10.0)
[2020-03-27 04:00] VITALS: BP 126/79; PULSE 56; RESP 12; TEMP 36.4; O2SAT 96
[2020-03-27 04:01] LABS: Alanine Aminotransferase 12 U/L (0-33); Albumin Level 3.6 g/dL (3.5-5.2); Alkaline Phosphatase 72 IU/L (35-105); Anion Gap 12.7 (5-19); Aspartate Amino Transferase 31 U/L (0-32); Blood Urea Nitrogen 23 mg/dL (8-23); Carbon Dioxide 22 mmol/L (22-29); Chloride 106 mmol/L (98-107); Globulin 1.9 g/dL (1.3-4.6); Glucose 113 mg/dL (65-115); Osmolality Calculated 288 mOsm/kg (285-295); Potassium 3.7 mmol/L (3.5-5.1); Sodium 137 mmol/L (136-145); Total Bilirubin 0.2 mg/dL (0.15-1.2); Total Protein 5.5 g/dL (6.6-8.7)
[2020-03-27] MEDS: heparin 5,000 unit/mL INJ 1 mL 5000 UNIT SUBCUT ×2 (04:21→17:48)
[2020-03-27] MEDS: ondansetron 2 mg/ML SDV 2 mL 4 MG IVP (05:29)
[2020-03-27 06:37] LABS: PROTEIN, TOTAL 6.2 g/dL (6.1-8.1)
[2020-03-27 06:43] LABS: Glucose Point of Care 101 mg/dL (70-110)
[2020-03-27 08:00] VITALS: BP 138/89; PULSE 59; RESP 18; TEMP 36.5; O2SAT 97
[2020-03-27] MEDS: fluticasone nasal spray 16gm Btl 1 SPRAY NASAL (08:48)
[2020-03-27] MEDS: atorvastatin 40 mg Tablet 20 MG PO (08:49)
[2020-03-27] MEDS: levothyroxine 50 mcg Tablet 75 MCG PO (08:49)
[2020-03-27] MEDS: citalopram 20 mg Tablet 10 MG PO (08:49)
[2020-03-27] MEDS: pantoprazole DR 40 mg Tablet PO ×2 (08:50→17:49)
[2020-03-27] MEDS: isosorbide mononitrate ER 30 mg Tablet PO (08:50)
[2020-03-27 10:44] LABS: Glucose Point of Care 128 mg/dL (70-110)
[2020-03-27 11:48] VITALS: BP 123/72; PULSE 83; RESP 18; TEMP 36.8; O2SAT 90
[2020-03-27 14:32] LABS: Creatinine, Random Urine 103 mg/dL (20-275); Protein, Total, Random 9 mg/dL (5-24); Protein/Creatinine Ratio 0.087 (0.021-0.161); Protein/Creatinine Ratio 87 mg/g creat (21-161)
[2020-03-27 15:32] LABS: ALBUMIN 3.8 g/dL (3.8-4.8); ALPHA 1 GLOBULIN 0.3 g/dL (0.2-0.3); ALPHA 2 GLOBULIN 0.9 g/dL (0.5-0.9); BETA 1 GLOBULIN 0.4 g/dL (0.4-0.6); BETA 2 GLOBULIN 0.3 g/dL (0.2-0.5); GAMMA GLOBULIN 0.5 g/dL (0.8-1.7)
[2020-03-27 16:00] VITALS: BP 116/61; PULSE 61; RESP 18; TEMP 36.7; O2SAT 96
[2020-03-27 16:02] LABS: Albumin,Urine Random 100 %; Alpha-1-Globulins Urine Random 0 %; Alpha-2-Globulins Urine Random 0 %; Beta-Globulin,Urine Random 0 %; Gamma Globulin,Urine Random 0 %
--- NOTE | 2020-03-27 16:33 | P.PN_ITS ---
Subjective Subjective: Interval history: no acute overnight events, particpating with OT this morning, renal functiom improving Medications: Reviewed: Yes Vitals/I&O/Wt Last Vital Signs Temp 98.0 F 03/27/20 16:00 Pulse 61 03/27/20 16:00 Resp 18 03/27/20 16:00 BP 116/61 03/27/20 16:00 Pulse Ox 96 03/27/20 16:00 03/27/20 03/27/20 03/27/20 06:59 14:59 22:59 Intake Total 360 / 360 Output Total 300 / 1190 800 / 800 Balance -300 / 770 -440 / -440 Physical Exam Narrative: EXAM NARRATIVE: GEN: Awake, alert and oriented, no acute distress CVS: S1S2 N RS: CTA B/L Abd: Soft, nt/nd , bs+ DAY TREATMENT CLINICIAN/ART THERAPIST: no focal neuro deficits EXT: bruising over left shoulder and above R eyebrow Urinary Catheter Management^: Phillips: Cath Placed During This Visit: yes Reason for Continuing Indwelling Catheter: Acute Urinary Retention or Obstruction Urinary Catheter Date of Insertion: 03/25/20 Urinary Catheter Time of Insertion: 18:18 Data : 03/27/20 03:18 03/27/20 03:18 A&P Assessment and plan (1) Syncope: Patiemt presented with fall in unclear circumstances with soft tissue injuries over shoulder and face CT head negative for acute events Carotid Doppler without any significant stenosis. 2D echocardiogram with LVEF 60%, . No acute events on telemetry. Orthostatics check without any significant drop HbA1c at 6.2, hypoglycemic events cannot be excluded. Cannot rule out TIA Status: Acute Qualifiers: Syncope type: unspecified Qualified Code(s): R55 - Syncope and collapse (2) Recurrent falls: As above May be syncopal events Partcipating with PT, ambulates with a walker, however unsteady, safety remains a big concern Status: Acute (3) Rhabdomyolysis: Likely secondary to being down on the floor for an unknown period of time Patient appears to be euvolemic. Creatinine is currently improving at 1.6. Discontinue fluids today, Continue to hold lasix encourage po intake Status: Acute Qualifiers: Rhabdomyolysis type: traumatic Encounter type: initial encounter Qualified Code(s): T79.6XXA - Traumatic ischemia of muscle, initial encounter (4) JUMANA (acute kidney injury): UA without active sediment CT KUB to r/o obstruction negative for the same, however incidentally showed multiple osteolytic lesions in the spine and ribs and hips which are awaiting further characterization. Ordered an SPEP and UPEP which remains pending at t his time. Will additionally arrange for a bone biopsy. Stopped ARBs hold metformin Status: Acute (5) Trigeminal neuralgia: carbamazepine stoppe don last PCP visit continue zonisamide for now Status: Acute (6) Generalized anxiety disorder: Status: Acute (7) Anemia: Status: Acute Qualifiers: Anemia type: unspecified type Qualified Code(s): D64.9 - Anemia, u nspecified (8) Chronic sinusitis: no role for recurrent abx in the absence of acute bacterial sinusitis. Stopped outpatient levaquin flonase for symptomatic rx to continue chronic cough related to post nasal drip most likely tessalon pearls prn Status: Acute Qualifiers: Sinusitis location: sphenoidal Qualified Code(s): J32.3 - Chronic sphenoidal sinusitis (9) Diabetes: insilun sliding scale Status: Acute Qualifiers: Diabetes mellitus type: type 2 Diabetes mellitus skilled nursing insulin use: without skilled nursing use Diabetes mellitus complication status: without complication Qualified Code(s): E11.9 - Type 2 diabetes mellitus without complications (10) Bone metastasis: Unclear primary origin Osteolytic lesions appear c/f malignancy SPEP pending Arranging bone biopsy for monday Status: Acute Additional A&P Information DNR/DNI per discussion with patient DVt ppx: heparin Dispo: transition to SNF given significant deconditioing, recurrent falls. patient lives alone at home Attestations Medical Necessity Statement*: monitor renal function. discharge feliz, bone biopsy Coding Level of Care Code Acute Remediation Technician for g Fwd Diagnoses Syncope R55 Syncope type: unspecified Recurrent falls R29.6 Rhabdomyolysis T79.6XXA Rhabdomyolysis type: traumatic Encounter type: initial encounter JUMANA (acute kidney injury) N17.9 Trigeminal neuralgia G50.0 Generalized anxiety disorder F41.1 Anemia D64.9 Anemia type: unspecified type Chronic sinusitis J32.3 Sinusitis location: sphenoidal Diabetes E11.9 Diabetes mellitus type: type 2 Diabetes mellitus skilled nursing insulin use: without skilled nursing use Diabetes mellitus complication status: without complication Bone metastasis C79.51
[2020-03-27 17:01] LABS: Glucose Point of Care 138 mg/dL (70-110)
[2020-03-27] MEDS: sodium chloride 0.45% 1,000 ML 75 ML IV (17:53)
[2020-03-27 19:46] VITALS: BP 128/79; PULSE 67; RESP 18; TEMP 37; O2SAT 97
[2020-03-27 20:26] LABS: Glucose Point of Care 171 mg/dL (70-110)
[2020-03-28] VITALS: BP 145/78; PULSE 64; RESP 18; TEMP 36.9; O2SAT 96
[2020-03-28 04:00] VITALS: BP 154/88; PULSE 67; RESP 18; TEMP 36.8; O2SAT 96
[2020-03-28] MEDS: heparin 5,000 unit/mL INJ 1 mL 5000 UNIT SUBCUT ×2 (04:47→17:48)
[2020-03-28 05:21] LABS: Alanine Aminotransferase 13 U/L (0-33); Albumin Level 3.8 g/dL (3.5-5.2); Alkaline Phosphatase 77 IU/L (35-105); Anion Gap 10.8 (5-19); Aspartate Amino Transferase 25 U/L (0-32); Blood Urea Nitrogen 16 mg/dL (8-23); Calcium 8.7 mg/dL (8.5-10.5); Carbon Dioxide 23 mmol/L (22-29); Chloride 109 mmol/L (98-107); Globulin 1.9 g/dL (1.3-4.6); Glucose 113 mg/dL (65-115); Osmolality Calculated 290 mOsm/kg (285-295); Potassium 3.8 mmol/L (3.5-5.1); Sodium 139 mmol/L (136-145); Total Bilirubin 0.2 mg/dL (0.15-1.2); Total Protein 5.7 g/dL (6.6-8.7)
[2020-03-28] MEDS: acetaminophen 325 mg Tablet 650 MG PO ×3 (06:25→14:59)
[2020-03-28 06:34] LABS: Glucose Point of Care 115 mg/dL (70-110)
--- NOTE | 2020-03-28 06:58 | PC.NURSE ---
SHIFT SUMMARY Didn't go to sleep until late. c/o restless legs bothering her even after taking po Requip with pm meds. Says they really bother her some nights worse than others. IV fluids were discontinued this shift per order. Good urine output per Phillips cath. Is quite [place]. Very pleasant.
[2020-03-28 07:32] VITALS: BP 138/82; PULSE 57; RESP 18; TEMP 36.6; O2SAT 96
[2020-03-28] MEDS: fluticasone nasal spray 16gm Btl 1 SPRAY NASAL (09:51)
[2020-03-28] MEDS: atorvastatin 40 mg Tablet 20 MG PO (09:52)
[2020-03-28] MEDS: levothyroxine 50 mcg Tablet 75 MCG PO (09:52)
[2020-03-28] MEDS: pantoprazole DR 40 mg Tablet PO ×2 (09:52→17:49)
[2020-03-28] MEDS: isosorbide mononitrate ER 30 mg Tablet PO (09:52)
[2020-03-28] MEDS: citalopram 20 mg Tablet 10 MG PO (09:52)
[2020-03-28 11:24] VITALS: BP 125/72; PULSE 56; RESP 18; TEMP 36.7; O2SAT 96
[2020-03-28 11:24] LABS: Glucose Point of Care 122 mg/dL (70-110)
--- NOTE | 2020-03-28 13:50 | PC.SOCIAL ---
Pg 2 IMM Explained to pt Pg 2 IMM & provided a copy to pt. No questions voiced. Signed, dated, & timed a copy & placed in chart.
[2020-03-28] MEDS: ropinirole 2 mg Tablet PO (14:14)
[2020-03-28 15:37] VITALS: BP 119/69; PULSE 66; RESP 18; TEMP 37.1; O2SAT 96
[2020-03-28 17:04] LABS: Glucose Point of Care 150 mg/dL (70-110)
--- NOTE | 2020-03-28 17:56 | P.PN_ITS ---
Subjective Subjective: Interval history: cr continues to improve, comfortbaly asleep at time of exam, wakes up easily to converse, no complaints at this time. Medications: Reviewed: Yes Vitals/I&O/Wt Last Vital Signs Temp 98.8 F 03/28/20 15:37 Pulse 66 03/28/20 15:37 Resp 18 03/28/20 15:37 BP 119/69 03/28/20 15:37 Pulse Ox 96 03/28/20 15:37 03/28/20 03/28/20 03/28/20 06:59 14:59 22:59 Intake Total 150 / 1750 360 / 360 120 / 480 Output Total 700 / 1850 650 / 650 Balance -550 / -100 360 / 360 -530 / -170 Physical Exam Narrative: EXAM NARRATIVE: GEN: Awake, alert and oriented, no acute distress , sleeping comfortably at initial assessment CVS: S1S2 N RS: CTA B/L Abd: Soft, nt/nd , bs+ SHANK SKINNER: no focal neuro deficits Const: COMMON NORMALS: no acute distress, average body habitus, patient oriented x3 and alert HENMT: COMMON NORMALS: normocephalic and atraumatic HEAD & SCALP: normocephalic and atraumatic Eye: COMMON NORMALS: Equal, round and reactive pupils present, EOMs intact bilaterally, conjunctivae normal and no scleral icterus CONJUNCTIVA: Yes conjunctivae normal PUPIL: Yes Equal, round and reactive pupils present Neck/C-Spine: COMMON NORMALS: no JVD Resp: COMMON NORMALS: normal respiratory effort, No retractions, No use of accessory muscles, clear to auscultation bilaterally and percussion normal AUSCULTATION: clear to auscultation bilaterally PERCUSSION: percussion normal Cardio: COMMON NORMALS: no JVD, regular rate, regular rhythm, S1 normal heart sound present, S2 normal heart sound present, No gallops present (Cardio), No clicks present (Cardio), No murmurs present (Cardio), No rub (Cardio) and Peripheral pulses 2+ throughout RATE: regular rate RHYTHM: regular rhythm HEART SOUNDS: S1 normal heart sound present and S2 normal heart sound present PERIPHERAL PULSES: Peripheral pulses 2+ throughout GI: COMMON NORMALS: Normal to inspection, nondistended, normoactive bowel sounds present, Soft to palpation, non-tender, No hepatosplenomegaly present, no masses and no bruits PALPATION: Yes Soft to palpation and Yes No hepatosplenomegaly present Extremity: COMMON NORMALS: normal to inspection, full ROM, capillary refill normal, no joint enlargement, no clubbing, cyanosis or edema, no calf tenderness and no pedal edema Neuro: COMMON NORMALS: patient oriented x3, CN's II-XII intact bilaterally, moves all extremities, no focal motor deficits, no sensory deficits noted, deep tendon reflexes 2+ bilaterally and gait normal SENSORIUM/ORIENTATION: Yes alert Psych: COMMON NORMALS: mental status grossly normal, Normal thought process present, cooperative, normal affect, speech normal, activity/motor behavior normal, denies hallucinations, denies homicidal ideation and denies suicidal ideation SPEECH: Yes normal speech THOUGHT PROCESS: Normal thought process present Skin: COMMON NORMALS: no rashes or lesions noted, no wounds, turgor normal, no jaundice, no petechiae and no mottling GENERAL SKIN EXAM: no rashes or lesions noted and turgor normal Urinary Catheter Management^: Ambrose: Cath Placed During This Visit: yes Reason for Continuing Indwelling Catheter: Acute Urinary Retention or Obstruction Urinary Catheter Date of Insertion: 03/25/20 Urinary Catheter Time of Insertion: 18:18 Data : 03/27/20 03:18 03/28/20 04:49 A&P Assessment and plan (1) Syncope: Patiemt presented with fall in unclear circumstances with soft tissue injuries over shoulder and face CT head negative for acute events Carotid Doppler without any significant stenosis. 2D echocardiogram with LVEF 60%, . No acute events on telemetry. Orthostatics check without any significant drop HbA1c at 6.2, hypoglycemic events cannot be excluded. Cannot rule out TIA Status: Acute Qualifiers: Syncope type: unspecified Qualified Code(s): R55 - Syncope and collapse (2) Recurrent falls: As above May be syncopal events Partcipating with PT, ambulates with a walker, however unsteady, safety remains a big concern Status: Acute (3) Rhabdomyolysis: Likely secondary to being down on the floor for an unknown period of time Patient appears to be euvolemic. Creatinine is currently improving at 1.6. Discontinue fluids today, Continue to hold lasix encourage po intake Status: Acute Qualifiers: Rhabdomyolysis type: traumatic Encounter type: initial encounter Qualified Code(s): T79.6XXA - Traumatic ischemia of muscle, initial encounter (4) JUMANA (acute kidney injury): UA without active sediment CT KUB to r/o obstruction negative for the same, however incidentally showed multiple osteolytic lesions in the spine and ribs and hips which are awaiting further characterization. Ordered an SPEP and UPEP which retruned negative, bone biopsy scheduled for monday Stopped ARBs hold metformin Renove ambrose catheter today Status: Acute (5) Trigeminal neuralgia: carbamazepine stoppe don last PCP visit continue zonisamide for now Status: Acute (6) Generalized anxiety disorder: Status: Acute (7) Anemia: Status: Acute Qualifiers: Anemia type: unspecified type Qualified Code(s): D64.9 - Anemia, unspecified (8) Chronic sinusitis: no role for recurrent abx in the absence of acute bacterial sinusitis. Stopped outpatient levaquin flonase for symptomatic rx to continue chronic cough related to post nasal drip most likely tessalon pearls prn Status: Acute Qualifiers: Sinusitis location: sphenoidal Qualified Code(s): J32.3 - Chronic sphenoidal sinusitis (9) Diabetes: insilun sliding scale Status: Acute Qualifiers: Diabetes mellitus type: type 2 Diabetes mellitus predatory animal exterminator insulin use: without predatory animal exterminator use Diabetes mellitus complication status: without complication Qualified Code(s): E11.9 - Type 2 diabetes mellitus without complications (10) Bone metastasis: Unclear primary origin Osteolytic lesions appear c/f malignancy SPEP does not appear c.w myeloma, UPEP negative, will discuss with oncology regarding next steps Arranging bone biopsy for monday Status: Acute Additional A&P Information DNR/DNI per discussion with patient DVt ppx: heparin Dispo: transition to SNF given significant deconditioing, recurrent falls. patient lives alone at home Attestations Medical Necessity Statement*: Bone biopsy on Monday, awaiting SNF placement for safe discharge from hospital Coding Level of Care Code Acute Welder/Fabricator for Chg Fwd Diagnoses Syncope R55 Syncope type: unspecified Recurrent falls R29.6 Rhabdomyolysis T79.6XXA Rhabdomyolysis type: traumatic Encounter type: initial encounter JUMANA (acute kidney injury) N17.9 Trigeminal neuralgia G50.0 Generalized anxiety disorder F41.1 Anemia D64.9 Anemia type: unspecified type Chronic sinusitis J32.3 Sinusitis location: sphenoidal Diabetes E11.9 Diabetes mellitus type: type 2 Diabetes mellitus longterm insulin use: without predatory animal exterminator use Diabetes mellitus complication status: without complication Bone metastasis C79.51
[2020-03-28 19:53] VITALS: BP 115/74; PULSE 72; RESP 18; TEMP 37.1; O2SAT 97
[2020-03-28 20:47] LABS: Glucose Point of Care 151 mg/dL (70-110)
[2020-03-28] MEDS: HYDROcodone-acetaminophen 5-325 mg Tablet 1 TAB PO (21:00)
[2020-03-29] VITALS (7 sets, daily range): BP systolic 111–144; BP diastolic 48–83; PULSE 58–75; RESP 14–19; TEMP 36.4–36.9; O2SAT 95–98
[2020-03-29] MEDS: acetaminophen 325 mg Tablet 650 MG PO ×2 (00:39→14:37)
[2020-03-29] MEDS: ropinirole 2 mg Tablet PO ×2 (02:08→14:25)
[2020-03-29] MEDS: heparin 5,000 unit/mL INJ 1 mL 5000 UNIT SUBCUT ×2 (04:05→17:28)
[2020-03-29 05:02] LABS: Basophils % 0.4 %; Eosinophils # 0.4 10^3/uL (0.0-0.8); Eosinophils % 4.9 %; Hematocrit 33.8 % (37.0-47.0); Hemoglobin 10.2 g/dL (11.5-15.3); Lymphocytes # 2.6 10^3/uL (0.8-4.8); Lymphocytes % 35.9 %; Mean Corpuscular HGB Conc 30.2 g/dL (30.0-36.0); Mean Corpuscular Hemoglobin 27.1 pg (28.0-34.0); Mean Corpuscular Volume 89.9 fL (81-99); Mean Platelet Volume 10.3 fL (7.4-10.4); Monocytes # 0.7 10^3/uL (0.2-0.9); Monocytes % 9.1 %; Neutrophils # 3.52 10^3/uL (1.8-7.7); Neutrophils % 49.3 %; Nucleated Red Blood Cells % 0 %; Platelet Count 148 10^3/cmm (130-400); Red Blood Count 3.76 10^6/uL (4.1-5.3); Red Cell Distribution Width 16.5 % (12.1-15.1); White Blood Count 7.1 10^3/uL (4.0-10.0)
[2020-03-29 05:24] LABS: Alanine Aminotransferase 13 U/L (0-33); Albumin Level 3.7 g/dL (3.5-5.2); Alkaline Phosphatase 84 IU/L (35-105); Anion Gap 11.7 (5-19); Aspartate Amino Transferase 21 U/L (0-32); Blood Urea Nitrogen 16 mg/dL (8-23); Calcium 8.7 mg/dL (8.5-10.5); Carbon Dioxide 24 mmol/L (22-29); Chloride 110 mmol/L (98-107); Creatine Phosphokinase 230 U/L (26-192); Globulin 1.9 g/dL (1.3-4.6); Glucose 116 mg/dL (65-115); Osmolality Calculated 296 mOsm/kg (285-295); Potassium 3.7 mmol/L (3.5-5.1); Sodium 142 mmol/L (136-145); Total Bilirubin 0.2 mg/dL (0.15-1.2); Total Protein 5.6 g/dL (6.6-8.7)
--- NOTE | 2020-03-29 05:50 | PC.NURSE ---
SHIFT SUMMARY Pleasant. Quite ANVIK. Has had problems with restless legs again tonight. Received her Requip and Tylenol. Warm blankets over legs help. Also received po Hydrocodone X1 for headache and leg pain. Phillips was removed just prior to shift change and has been to [facility] for voiding X2. Is unsteady but no c/o dizziness when up. CK with am labs down to 230
[2020-03-29 06:49] LABS: Glucose Point of Care 122 mg/dL (70-110)
[2020-03-29] MEDS: isosorbide mononitrate ER 30 mg Tablet PO (08:04)
[2020-03-29] MEDS: pantoprazole DR 40 mg Tablet PO ×2 (08:04→17:29)
[2020-03-29] MEDS: levothyroxine 50 mcg Tablet 75 MCG PO (08:04)
[2020-03-29] MEDS: citalopram 20 mg Tablet 10 MG PO (08:04)
[2020-03-29] MEDS: atorvastatin 40 mg Tablet 20 MG PO (08:05)
[2020-03-29] MEDS: fluticasone nasal spray 16gm Btl 1 SPRAY NASAL (08:10)
[2020-03-29 11:04] LABS: Glucose Point of Care 123 mg/dL (70-110)
--- NOTE | 2020-03-29 13:24 | PM.PN ---
Subjective Subjective: Interval history: Patient continues to improve. Appears much more alert. Out of bed and working with OT this morning. Hemoglobin stable at 10.2. Creatinine much improved at 1.0. Urine output at 1.2 L. Phillips has been discontinued in the interim. Medications: Reviewed: Yes Vitals/I&O/Wt Last Vital Signs Temp 98.4 F 03/29/20 11:25 Pulse 71 03/29/20 11:25 Resp 18 03/29/20 11:25 BP 123/48 03/29/20 11:25 Pulse Ox 96 03/29/20 11:25 03/28/20 03/29/20 03/29/20 22:59 06:59 14:59 Intake Total 120 / 480 200 / 680 Output Total 900 / 900 375 / 1275 Balance -780 / -420 -175 / -595 Physical Exam Narrative: EXAM NARRATIVE: GEN: Awake, alert and oriented, no acute distress CVS: S1S2 N RS: CTA B/L Abd: Soft, nt/nd , bs+ RADIO INTERFERENCE INVESTIGATOR: no focal neuro deficits Urinary Catheter Management^: Phililps: Cath Placed During This Visit: yes, but has since been removed by the nurse Reason for Continuing Indwelling Catheter: Decision to DC Catheter Urinary Catheter Date of Insertion: 03/25/20 Urinary Catheter Time of Insertion: 18:18 Date Urinary Catheter Removed: 03/28/20 Time Urinary Catheter Discontinued: 18:30 Data : 03/29/20 04:28 03/29/20 04:28 A&P Assessment and plan (1) Syncope: Patiemt presented with fall in unclear circumstances with soft tissue injuries over shoulder and face CT head negative for acute events Carotid Doppler without any significant stenosis. 2D echocardiogram with LVEF 60%, . No acute events on telemetry. Orthostatics check without any significant drop HbA1c at 6.2, hypoglycemic events cannot be excluded. Cannot rule out TIA, started on ASA 81mg , stopped statins as currently with rhabdomyolysis Status: Acute Qualifiers: Syncope type: unspecified Qualified Code(s): R55 - Syncope and collapse (2) Recurrent falls: As above May be syncopal events Partcipating with PT, ambulates with a walker, however unsteady, safety remains a big concern Status: Acute (3) Rhabdomyolysis: Likely secondary to being down on the floor for an unknown period of time Patient appears to be euvolemic. Creatinine is currently improving at 1.0. Continue to hold Lasix encourage po intake CK much improved at 230 now. Status: Acute Qualifiers: Rhabdomyolysis type: traumatic Encounter type: initial encounter Qualified Code(s): T79.6XXA - Traumatic ischemia of muscle, initial encounter (4) JUMANA (acute kidney injury): UA without active sediment CT KUB to r/o obstruction negative for the same, however incidentally showed multiple osteolytic lesions in the spine and ribs and hips which are awaiting further characterization. Ordered an SPEP and UPEP which retruned negative, bone biopsy scheduled for monday CT chest also ordered to evaluate for lung cancer. Stopped ARBs hold metformin Status: Acute (5) Trigeminal neuralgia: carbamazepine stoppe don last PCP visit continue zonisamide for now Status: Acute (6) Generalized anxiety disorder: Status: Acute (7) Anemia: Status: Acute Qualifiers: Anemia type: unspecified type Qualified Code(s): D64.9 - Anemia, unspecified (8) Chronic sinusitis: no role for recurrent abx in the absence of acute bacterial sinusitis. Stopped outpatient levaquin flonase for symptomatic rx to continue chronic cough related to post nasal drip most likely tessalon pearls prn Status: Acute Qualifiers: Sinusitis location: sphenoidal Qualified Code(s): J32.3 - Chronic sphenoidal sinusitis (9) Diabetes: insilun sliding scale Status: Acute Qualifiers: Diabetes mellitus type: type 2 Diabetes mellitus regional intermodal truck driver insulin use: without retirement use Diabetes mellitus complication status: without complication Qualified Code(s): E11.9 - Type 2 diabetes mellitus without complications (10) Bone metastasis: Unclear primary origin Osteolytic lesions appear c/f malignancy SPEP does not appear c.w myeloma, UPEP negative, CT abdomen did not reveal any GI malignancy, CT chest ordered to evaluate for lung cancer. Arranging bone biopsy for monday Status: Acute Additional A&P Information DNR/DNI per discussion with patient DVt ppx: heparin Dispo: transition to SNF given significant deconditioing, recurrent falls. patient lives alone at home Attestations Medical Necessity Statement*: Scheduled for bone biopsy tomorrow, awaiting placement at SNF. Coding Level of Care Code Acute Green Building Energy Engineer for g Fwd Diagnoses Syncope R55 Syncope type: unspecified Recurrent falls R29.6 Rhabdomyolysis T79.6XXA Rhabdomyolysis type: traumatic Encounter type: initial encounter JUMANA (acute kidney injury) N17.9 Trigeminal neuralgia G50.0 Generalized anxiety disorder F41.1 Anemia D64.9 Anemia type: unspecified type Chronic sinusitis J32.3 Sinusitis location: sphenoidal Diabetes E11.9 Diabetes mellitus type: type 2 Diabetes mellitus retirement insulin use: without retirement use Diabetes mellitus complication status: without complication Bone metastasis C79.51
--- NOTE | 2020-03-29 13:35 | CTR_ITS ---
PROCEDURE INFORMATION: Exam: CT Chest Without Contrast Exam date and time: 03/29/2020 3:52 PM Age: 74 years old Clinical indication: Other: Metastatic lesions; Prior surgery; Surgery date: 6+ months; Surgery type: Left breast/breast cancer; Patient HX: History of breast cancer; Additional info: Evaluate for malignancy, new metastatic lesions TECHNIQUE: Imaging protocol: Computed tomography of the chest without contrast. Radiation optimization: All CT scans at this facility use at least one of these dose optimization techniques: automated exposure control; mA and/or kV adjustment per patient size (includes targeted exams where dose is matched to clinical indication); or iterative reconstruction. COMPARISON: CR XR chest 1V portable [id number] 03/25/2020 10:33 AM RADIATION DOSE METRICS: Total DLP (mGy-cm): 649.3 FINDINGS: Lungs: There are pulmonary parenchymal calcifications consistent with remote granulomatous organism exposure. There is peribronchial thickening at the right lung base. There are multiple noncalcified nodular densities in the bilateral lungs the larger of which measures 7 mm series 3, image 32 in the right lower lobe. Pleural space: Unremarkable. No pneumothorax. No pleural effusion. Heart: Multivessel atherosclerotic disease which involves the coronary arteries. Aorta: Unremarkable. No aortic aneurysm. Lymph nodes: There are calcified mediastinal and perihilar lymph nodes consistent with prior granulomatous exposure. There are postoperative changes in the left axillary region. There are multiple right axillary lymph nodes some of which are enlarged and or rounded. Bones/joints: There are degenerative changes in the visualized spine. Soft tissues: There are left mastectomy changes. There are multiple nodular densities in the right lung the larger of which measures 3.0 x 2.7 cm in the craniocaudad/AP dimensions and has irregular borders. CT/CT chest con [id number] IMPRESSION: 1. Post left mastectomy changes. There are multiple nodular densities in the right breast as described above. Follow-up with mammography and breast ultrasound as clinically warranted. 2. There is right axillary lymphadenopathy. 3. There are multiple noncalcified nodular densities in the lungs the larger of which measures 7 mm.For patients at low risk (minimal or absent history of smoking and of other known risk factors), recommend CT Chest at 3-6 months, then consider CT Chest at 18-24 months. For patients at high risk (history of smoking or of other known risk factors), recommend CT Chest at 3-6 months, then CT Chest at 18-24 months. (Reference: Nargis) REFERENCES: Nargis Andujar et al. Guidelines for Management of Incidental Pulmonary Nodules Detected on CT Images: From the Fleischner Society 2017. Radiology. 2017;284(1):228-243. Radiation Dose CTDIVOL = (mGy): DLP = 649.3 (mGy-cm)
[2020-03-29 16:41] LABS: Glucose Point of Care 126 mg/dL (70-110)
--- NOTE | 2020-03-29 19:06 | PC.NURSE ---
This nurse called to room by physical therapy. The patient reported that the IV in her left AC was causing pain. Assessed site and took off tape and vena-guard. Site was reddened and the insertion site appeared to be yellow and was tender. Contacted physician and was asked for a picture. Picture was sent to physician via secure text message and was told to place ice on it for now and monitor. Attempted to place ice on site but patient complained of it being too cold and wanted it off.
[2020-03-29 20:03] LABS: Glucose Point of Care 144 mg/dL (70-110)
[2020-03-29] MEDS: HYDROcodone-acetaminophen 5-325 mg Tablet 1 TAB PO (21:06)
[2020-03-30] VITALS (7 sets, daily range): BP systolic 111–142; BP diastolic 70–80; PULSE 53–66; RESP 16–18; TEMP 36.1–36.7; O2SAT 95–98
[2020-03-30] MEDS: heparin 5,000 unit/mL INJ 1 mL 5000 UNIT SUBCUT (04:37)
[2020-03-30] MEDS: HYDROcodone-acetaminophen 5-325 mg Tablet 1 TAB PO ×3 (05:05→23:20)
[2020-03-30 06:16] LABS: Glucose Point of Care 117 mg/dL (70-110)
[2020-03-30] MEDS: levothyroxine 50 mcg Tablet 75 MCG PO (07:59)
[2020-03-30] MEDS: isosorbide mononitrate ER 30 mg Tablet PO (07:59)
[2020-03-30] MEDS: pantoprazole DR 40 mg Tablet PO ×2 (07:59→17:24)
[2020-03-30] MEDS: fluticasone nasal spray 16gm Btl 1 SPRAY NASAL (07:59)
[2020-03-30] MEDS: citalopram 20 mg Tablet 10 MG PO (07:59)
[2020-03-30] MEDS: aspirin 81 mg EC Tablet PO (07:59)
--- NOTE | 2020-03-30 08:47 | DCPLANNER ---
Pg 2 of IM updated and reviewed with pt. No questions, copy provided.
--- NOTE | 2020-03-30 10:19 | PC.NURSE ---
Dr. Peoples new orders received to hold night dose of anticoagulants due to bone biopsy scheduled for tomorrow morning at 10AM, NPO after midnight, instructed patient, verbalized understanding, see ORDERS.
[2020-03-30 10:29] LABS: Glucose Point of Care 267 mg/dL (70-110)
--- NOTE | 2020-03-30 12:04 | PM.PN ---
Subjective Subjective: Interval history: No acute events overnight. Vitals and labs have been reviewed. She was complaining of right breast lump, which was not there previously. Ultrasound of the right breast was done.it shows : heterogeneous solid lobulated mass difficult to measure in the right upper inner quadrant. The solid portion of the mass measures approximately 2.6 x 2.1 x 2.4 cm. Additional surrounding necrotic or cystic components. She is due for ultrasound-guided biopsy tomorrow. Medications: Reviewed: Yes Vitals/I&O/Wt Last Vital Signs Temp 96.9 F L 03/30/20 11:17 Pulse 64 03/30/20 11:17 Resp 18 03/30/20 11:17 BP 111/70 03/30/20 11:17 Pulse Ox 98 03/30/20 11:17 03/29/20 03/30/20 03/30/20 22:59 06:59 14:59 Intake Total 480 / 960 120 / 1080 140 / 140 Output Total 500 / 1300 Balance -20 / -340 120 / -220 140 / 140 Physical Exam Narrative: EXAM NARRATIVE: Narrative EXAM NARRATIVE: GEN: Awake, alert and oriented, no acute distress CVS: S1S2 N RS: CTA B/L Abd: Soft, nt/nd , bs+ STEWARD/STEWARDESS CHIEF CARGO VESSEL: no focal neuro deficits Urinary Catheter Management^: Phillips: Cath Placed During This Visit: yes, but has since been removed by the nurse Reason for Continuing Indwelling Catheter: Decision to DC Catheter Urinary Catheter Date of Insertion: 03/25/20 Urinary Catheter Time of Insertion: 18:18 Date Urinary Catheter Removed: 03/28/20 Time Urinary Catheter Discontinued: 18:30 Data : 03/29/20 04:28 03/29/20 04:28 A&P Assessment and plan (1) Breast mass: Rt Breast Mass r/o malignancy: Ultrasound of the right breast was done.it shows : heterogeneous solid lobulated mass difficult to measure in the right upper inner quadrant. The solid portion of the mass measures approximately 2.6 x 2.1 x 2.4 cm. Additional surrounding necrotic or cystic components. She is due for ultrasound-guided biopsy tomorrow. Status: Acute (2) Bone metastasis: Likely primary is Rt breast mass. Osteolytic lesions appear c/f malignancy Due for bone and ultrasound-guided biopsy of the large solid right breast mass in am. SPEP does not appear c.w myeloma, UPEP negative, CT abdomen did not reveal any GI malignancy, CT chest: Has failed to show Lung cancer. Status: Acute (3) Syncope: Patiemt presented with fall in unclear circumstances with soft tissue injuries over shoulder and face CT head negative for acute events Carotid Doppler without any significant stenosis. 2D echocardiogram with LVEF 60%, . No acute events on telemetry. Orthostatics check without any significant drop HbA1c at 6.2, hypoglycemic events cannot be excluded. Cannot rule out TIA, started on ASA 81mg , stopped statins as currently with rhabdomyolysis Status: Acute Qualifiers: Syncope type: unspecified Qualified Code(s): R55 - Syncope and collapse (4) Recurrent falls: As above May be syncopal events Partcipating with PT, ambulates with a walker, however unsteady, safety remains a big concern Status: Acute (5) Rhabdomyolysis: Likely secondary to being down on the floor for an unknown period of time Patient appears to be euvolemic. Creatinine is currently improving at 1.0. Continue to hold Lasix encourage po intake CK much improved at 230 now. Status: Acute Qualifiers: Encounter type: initial encounter Rhabdomyolysis type: traumatic Qualified Code(s): T79.6XXA - Traumatic ischemia of muscle, initial encounter (6) JUMANA (acute kidney injury): UA without active sediment CT KUB to r/o obstruction negative for the same, however incidentally showed multiple osteolytic lesions in the spine and ribs and hips which are awaiting further characterization. Ordered an SPEP and UPEP which retruned negative, bone biopsy scheduled for monday CT chest also ordered to evaluate for lung cancer. Stopped ARBs hold metformin Status: Acute (7) Trigeminal neuralgia: carbamazepine stoppe don last PCP visit continue zonisamide for now Status: Acute (8) Generalized anxiety disorder: Status: Acute (9) Anemia: Status: Acute Qualifiers: Anemia type: unspecified type Qualified Code(s): D64.9 - Anemia, unspecified (10) Chronic sinusitis: no role for recurrent abx in the absence of acute bacterial sinusitis. Stopped outpatient levaquin flonase for symptomatic rx to continue chronic cough related to post nasal drip most likely tessalon pearls prn Status: Acute Qualifiers: Sinusitis location: sphenoidal Qualified Code(s): J32.3 - Chronic sphenoidal sinusitis (11) Diabetes: insilun sliding scale Status: Acute Qualifiers: Diabetes mellitus complication status: without complication Diabetes mellitus assisted insulin use: without calender let off operator use Diabetes mellitus type: type 2 Qualified Code(s): E11.9 - Type 2 diabetes mellitus without complications Additional A&P Information DNR/DNI per discussion with patient DVt ppx: heparin Dispo: transition to SNF given significant deconditioing, recurrent falls. patient lives alone at home Attestations Medical Necessity Statement*: Scheduled for biopsy tomorrow, awaiting placement at SNF. Coding Level of Care Code Acute Glass Blowing Lathe Operator for g Fwd Diagnoses Breast mass N63.0 Bone metastasis C79.51 Syncope R55 Syncope type: unspecified Recurrent falls R29.6 Rhabdomyolysis T79.6XXA Encounter type: initial encounter Rhabdomyolysis type: traumatic JUMANA (acute kidney injury) N17.9 Trigeminal neuralgia G50.0 Generalized anxiety disorder F41.1 Anemia D64.9 Anemia type: unspecified type Chronic sinusitis J32.3 Sinusitis location: sphenoidal Diabetes E11.9 Diabetes mellitus complication status: without complication Diabetes mellitus assisted insulin use: without assisted use Diabetes mellitus type: type 2
--- NOTE | 2020-03-30 13:06 | PC.NURSE ---
Patient found a lump to right breast, notified this nurse, assessed lump and informed Dr. Peoples.
--- NOTE | 2020-03-30 13:40 | US_ITS ---
WS: [id number] ULTRASOUND BREAST RIGHT TECHNIQUE: Ultrasound right breast focused area of concern. CLINICAL INFORMATION: lump in rt breast with multiple new osteolytic lesion in hip COMPARISON: None. FINDINGS: Ultrasound right breast right upper inner quadrant and right upper outer quadrant. Ultrasound right a xilla. Heterogeneous solid lobulated mass difficult to measure in the right upper inner quadrant. The solid portion of the mass measures approximately 2.6 x 2.1 x 2.4 cm. Additional surrounding necrotic or cystic components. Ultrasound of the right axilla demonstrates multiple hypoechoic lesions the largest measuring 2-3 cm in the right axilla some with a cystic appearance. These may represent enlarged necrotic lymph nodes. This corresponds to the lymphadenopathy seen on the recent CT. No normal-appearing lymph nodes or ec hogenic solid lymph nodes are visualized. Largest hypoechoic ovoid lesions measure 2.3 x 0.9 x 2.3 cm US/US breast RT complete [id number] IMPRESSION: Recommend ultrasound-guided biopsy of the large solid right breast mass BI-RADS 5 FOLLOW UP ULTRASOUND-GUIDED BIOPSY.
[2020-03-30] MEDS: acetaminophen 325 mg Tablet 650 MG PO (16:26)
[2020-03-30 17:52] LABS: Glucose Point of Care 122 mg/dL (70-110)
[2020-03-30 21:00] LABS: Glucose Point of Care 160 mg/dL (70-110)
[2020-03-30] MEDS: ropinirole 2 mg Tablet PO (23:21)
[2020-03-31] VITALS (9 sets, daily range): BP systolic 102–131; BP diastolic 61–79; PULSE 56–92; RESP 17–18; TEMP 36.7–37.1; O2SAT 90–97
[2020-03-31] MEDS: heparin 5,000 unit/mL INJ 1 mL 5000 UNIT SUBCUT (05:22)
[2020-03-31 05:36] LABS: Basophils # 0.1 10^3/uL (0.0-0.1); Basophils % 0.8 %; Eosinophils # 0.5 10^3/uL (0.0-0.8); Hemoglobin 9.6 g/dL (11.5-15.3); Lymphocytes # 2.6 10^3/uL (0.8-4.8); Lymphocytes % 36.8 %; Mean Corpuscular Hemoglobin 26.7 pg (28.0-34.0); Mean Corpuscular Volume 88.9 fL (81-99); Mean Platelet Volume 10.6 fL (7.4-10.4); Monocytes # 0.6 10^3/uL (0.2-0.9); Monocytes % 8.9 %; Neutrophils % 46.1 %; Nucleated Red Blood Cells % 0 %; Platelet Count 159 10^3/cmm (130-400); Red Cell Distribution Width 16.4 % (12.1-15.1); White Blood Count 7.2 10^3/uL (4.0-10.0)
[2020-03-31 05:58] LABS: Anion Gap 11.7 (5-19); Blood Urea Nitrogen 18 mg/dL (8-23); Calcium 8.7 mg/dL (8.5-10.5); Carbon Dioxide 24 mmol/L (22-29); Chloride 107 mmol/L (98-107); Glucose 98 mg/dL (65-115); Osmolality Calculated 290 mOsm/kg (285-295); Potassium 3.7 mmol/L (3.5-5.1); Sodium 139 mmol/L (136-145)
[2020-03-31 06:32] LABS: Glucose Point of Care 99 mg/dL (70-110)
--- NOTE | 2020-03-31 07:06 | PC.NURSE ---
Dr. Peoples notified of night nurse administering heparin, new order to discontinue completely, called CT to inform but no answer at this time, charge nurse aware, at this time still scheduled for CT deep bone biopsy until hearing from radiology.
[2020-03-31] MEDS: fluticasone nasal spray 16gm Btl 1 SPRAY NASAL (07:57)
[2020-03-31] MEDS: pantoprazole DR 40 mg Tablet PO ×2 (07:58→17:09)
[2020-03-31] MEDS: levothyroxine 50 mcg Tablet 75 MCG PO (07:58)
[2020-03-31] MEDS: citalopram 20 mg Tablet 10 MG PO (07:58)
[2020-03-31] MEDS: isosorbide mononitrate ER 30 mg Tablet PO (07:59)
[2020-03-31] MEDS: ropinirole 2 mg Tablet PO ×2 (07:59→21:45)
--- NOTE | 2020-03-31 08:57 | PC.NURSE ---
Dr. Peoples notified this nurse that patients biopsy will be moved to this afternoon but still plan for today, held aspirin this morning per doctors orders, patient made aware and verbalizes understanding.
--- NOTE | 2020-03-31 09:48 | PM.PN ---
Subjective Subjective: Interval history: She was comfortably sitting in a chair this morning. Currently not having any active complaints. Vitals and labs have been reviewed. Medications: Reviewed: Yes Vitals/I&O/Wt Last Vital Signs Temp 98.5 F 03/31/20 07:46 Pulse 57 L 03/31/20 07:46 Resp 18 03/31/20 07:46 BP 131/79 03/31/20 07:46 Pulse Ox 96 03/31/20 07:46 03/30/20 03/31/20 03/31/20 22:59 06:59 14:59 Intake Total 240 / 860 Output Total 900 / 900 250 / 1150 Balance -660 / -40 -250 / -290 Physical Exam Narrative: EXAM NARRATIVE: EXAM NARRATIVE: Narrative EXAM NARRATIVE: GEN: Awake, alert and oriented, no acute distress CVS: S1S2 N RS: CTA B/L Abd: Soft, nt/nd , bs+ CREDIT RISK ASSOCIATE: no focal neuro deficits Urinary Catheter Management^: Phillips: Cath Placed During This Visit: yes, but has since been removed by the nurse Reason for Continuing Indwelling Catheter: Decision to DC Catheter Urinary Catheter Date of Insertion: 03/25/20 Urinary Catheter Time of Insertion: 18:18 Date Urinary Catheter Removed: 03/28/20 Time Urinary Catheter Discontinued: 18:30 Data : 03/31/20 04:58 03/31/20 04:58 A&P Assessment and plan (1) Breast mass: Rt Breast Mass r/o malignancy: Ultrasound of the right breast was done.it shows : heterogeneous solid lobulated mass difficult to measure in the right upper inner quadrant. The solid portion of the mass measures approximately 2.6 x 2.1 x 2.4 cm. Additional surrounding necrotic or cystic components. She is due for ultrasound-guided biopsy tomorrow. Status: Acute (2) Bone metastasis: Likely primary is Rt breast mass. Osteolytic lesions appear c/f malignancy Due for bone and ultrasound-guided biopsy of the large solid right breast mass in am. SPEP does not appear c.w myeloma, UPEP negative, CT abdomen did not reveal any GI malignancy, CT chest: Has failed to show Lung cancer. Status: Acute (3) Syncope: Patiemt presented with fall in unclear circumstances with soft tissue injuries over shoulder and face CT head negative for acute events Carotid Doppler without any significant stenosis. 2D echocardiogram with LVEF 60%, . No acute events on telemetry. Orthostatics check without any significant drop HbA1c at 6.2, hypoglycemic events cannot be excluded. Cannot rule out TIA, started on ASA 81mg , start statin as rhabdo has resolved Status: Acute (4) Recurrent falls: As above May be syncopal events Partcipating with PT, ambulates with a walker, however unsteady, safety remains a big concern Status: Acute (5) Rhabdomyolysis: Likely secondary to being down on the floor for an unknown period of time Patient appears to be euvolemic. Creatinine is currently improving at 1.0. Continue to hold Lasix encourage po intake CK much improved at 230 now. Status: Acute (6) JUMANA (acute kidney injury): UA without active sediment CT KUB to r/o obstruction negative for the same, however incidentally showed multiple osteolytic lesions in the spine and ribs and hips which are awaiting further characterization. Ordered an SPEP and UPEP which retruned negative, bone biopsy scheduled for monday CT chest also ordered to evaluate for lung cancer. Stopped ARBs hold metformin Status: Acute (7) Trigeminal neuralgia: carbamazepine stoppe don last PCP visit continue zonisamide for now Status: Acute (8) Generalized anxiety disorder: Status: Acute (9) Anemia: Status: Acute (10) Chronic sinusitis: no role for recurrent abx in the absence of acute bacterial sinusitis. Stopped outpatient levaquin flonase for symptomatic rx to continue chronic cough related to post nasal drip most likely tessalon pearls prn Status: Acute Qualifiers: Sinusitis location: sphenoidal Qualified Code(s): J32.3 - Chronic sphenoidal sinusitis (11) Diabetes: insilun sliding scale Status: Acute Qualifiers: Diabetes mellitus type: type 2 Diabetes mellitus assisted insulin use: without petroleum terminal plant operator use Diabetes mellitus complication status: without complication Qualified Code(s): E11.9 - Type 2 diabetes mellitus without complications Additional A&P Information DNR/DNI per discussion with patient DVt ppx: heparin Dispo: transition to SNF given significant deconditioing, recurrent falls. patient lives alone at home Attestations Medical Necessity Statement*: She is due for breast mass biopsy today Coding Level of Care Code Acute Highway Painter Helper for [facility] Fwd Diagnoses Breast mass N63.0 Bone metastasis C79.51 Syncope R55 Recurrent falls R29.6 Rhabdomyolysis M62.82 JUMANA (acute kidney injury) N17.9 Trigeminal neuralgia G50.0 Generalized anxiety disorder F41.1 Anemia D64.9 Chronic sinusitis J32.3 Sinusitis location: sphenoidal Diabetes E11.9 Diabetes mellitus type: type 2 Diabetes mellitus assisted insulin use: without petroleum terminal plant operator use Diabetes mellitus complication status: without complication
--- NOTE | 2020-03-31 10:08 | PC.NURSE ---
SonCorey (with patients permission) informed of plan of care to complete breast biopsy this afternoon and cancelled the bone biopsy, verbalized understanding.
[2020-03-31 10:29] LABS: Glucose Point of Care 133 mg/dL (70-110)
--- NOTE | 2020-03-31 11:02 | PC.NURSE ---
Notified Dr. Peoples of skin irritation under right breast and constipation, awaiting new orders.
[2020-03-31] MEDS: nystatin powder 15 gm Btl 1 APPLIC TOPICAL ×2 (11:09→17:09)
--- NOTE | 2020-03-31 11:30 | US_ITS ---
WS: [id number] ULTRASOUND-GUIDED RIGHT BREAST BIOPSY CLINICAL INFORMATION: right breast mass COMPARISON: None. FINDINGS: The procedure including risks, benefits, and complications were discussed with the patient who agreed to proceed. Using sterile technique patient was prepped and draped in the usual sterile fashion. Aft er 1% lidocaine utilizing real-time ultrasound guidance 6 14-gauge cores were obtained of the right b reast lesion at the right upper inner quadrant. Subsequently a titanium clip was placed in the biopsy cavity. No immediate complications. Pathology demonstrates Breast, right, right upper inner quadrant , biopsy: -Metaplastic carcinoma with chondroid, myxoid and osteoid differentiation (Heterologous components). -Dash Ignacio grade 3. -Best prognostic profile has been ordered. US/[place] [id number] IMPRESSION: 1. Uncomplicated ultrasound-guided right breast biopsy. 2. The pathology demonstrates metaplastic carcinoma with chondroid, myxoid, an d osteoid differentiation described above 3. Breast cancer prognostic profile pending. BI-RADS: 6-Known Biopsy-Proven Malignancy FOLLOW UP: Surgical Biopsy Recommended RECOMMEND BREAST SURGERY CONSULTATION.
--- NOTE | 2020-03-31 12:06 | PC.NURSE ---
Resting in bed with eyes closed, equal rise and fall of chest, call light in reach, side rails up X2. Administered nystatin powder as ordered by physician to right breast fold, see MAR for further details.
--- NOTE | 2020-03-31 13:58 | PC.NURSE ---
Sitting on side of bed denies pain or needs, call light in reach, patient is talkative and in good spirits.
--- NOTE | 2020-03-31 14:02 | PC.NURSE ---
Dr. Peoples notified of breast biopsy completed, new orders received for carb consistent diet, complete NPO status, miralax daily for constipation. See orders for further details.
[2020-03-31] MEDS: polyethylene glycol 3350 Pkt 17 gm PO (14:42)
[2020-03-31] MEDS: acetaminophen 325 mg Tablet 650 MG PO (14:45)
--- NOTE | 2020-03-31 16:46 | PC.NURSE ---
Patients sonDavie, took patients home medications from lock up home except the ordered non formulary zonisamide.
[2020-03-31 17:06] LABS: Glucose Point of Care 160 mg/dL (70-110)
--- NOTE | 2020-03-31 18:22 | PC.NURSE ---
patient used the hat in bedside commode today but did not use the hat in toilet, instructed patient on accurate urine measurement, verbalized understanding.
[2020-03-31 21:11] LABS: Glucose Point of Care 119 mg/dL (70-110)
[2020-03-31] MEDS: atorvastatin 40 mg Tablet PO (21:45)
[2020-03-31] MEDS: HYDROcodone-acetaminophen 5-325 mg Tablet 1 TAB PO (21:46)
[2020-04-01] VITALS (7 sets, daily range): BP systolic 107–132; BP diastolic 63–76; PULSE 57–71; RESP 18; TEMP 36.6–37; O2SAT 95–97
[2020-04-01 08:16] LABS: Glucose Point of Care 124 mg/dL (70-110)
[2020-04-01] MEDS: aspirin 81 mg EC Tablet PO (08:19)
[2020-04-01] MEDS: citalopram 20 mg Tablet 10 MG PO (08:20)
[2020-04-01] MEDS: levothyroxine 50 mcg Tablet 75 MCG PO (08:20)
[2020-04-01] MEDS: isosorbide mononitrate ER 30 mg Tablet PO (08:20)
[2020-04-01] MEDS: pantoprazole DR 40 mg Tablet PO (08:20)
[2020-04-01] MEDS: polyethylene glycol 3350 Pkt 17 gm PO (08:21)
[2020-04-01] MEDS: nystatin powder 15 gm Btl 1 APPLIC TOPICAL (08:21)
[2020-04-01] MEDS: fluticasone nasal spray 16gm Btl 1 SPRAY NASAL (08:21)
[2020-04-01] MEDS: acetaminophen 325 mg Tablet 650 MG PO (08:22)
[2020-04-01 10:01] LABS: Glucose Point of Care 116 mg/dL (70-110)
--- NOTE | 2020-04-01 10:11 | DCPLANNER ---
Pg 2 of IM updated and reviewed with pt. No questions, copy provided.
[2020-04-01 11:21] LABS: Glucose Point of Care 156 mg/dL (70-110)
== END 2020-04-01 12:45 | disposition home health service (06) | DRG 683 ==
LOC: ER 12:33 → MEDSURG 13:29
PROVIDERS: Family Medicine; Admitting Provider Student in an Organized Health Care Education/Training Program; PCP Nurse Practitioner; Visit Provider Internal Medicine
DX: N17.9 Acute kidney failure, unspecified (principal); C79.51 Secondary malignant neoplasm of bone; I13.0 Hypertensive heart and chronic kidney disease with heart failure and stage 1 through stage 4 chronic kidney disease, or unspecified chronic kidney disease; I50.32 Chronic diastolic (congestive) heart failure; F33.9 Major depressive disorder, recurrent, unspecified; R55 Syncope and collapse; C50.211 Malignant neoplasm of upper-inner quadrant of right female breast; E11.22 Type 2 diabetes mellitus with diabetic chronic kidney disease; N18.9 Chronic kidney disease, unspecified; D64.9 Anemia, unspecified; Z90.12 Acquired absence of left breast and nipple; Z85.3 Personal history of malignant neoplasm of breast; E78.5 Hyperlipidemia, unspecified; M19.90 Unspecified osteoarthritis, unspecified site; G25.81 Restless legs syndrome; R91.8 Other nonspecific abnormal finding of lung field; T79.6XXA Traumatic ischemia of muscle, initial encounter; W19.XXXA Unspecified fall, initial encounter; Z79.84 Long term (current) use of oral hypoglycemic drugs; G50.0 Trigeminal neuralgia; Z66 Do not resuscitate; Z96.653 Presence of artificial knee joint, bilateral; Z97.4 Presence of external hearing-aid; F41.1 Generalized anxiety disorder; F03.90 Unspecified dementia, unspecified severity, without behavioral disturbance, psychotic disturbance, mood disturbance, and anxiety; M51.36 Other intervertebral disc degeneration, lumbar region; M50.30 Other cervical disc degeneration, unspecified cervical region; G56.00 Carpal tunnel syndrome, unspecified upper limb; J32.3 Chronic sphenoidal sinusitis
CPT/HCPCS: 12345; 19083; 20225; 36415; 36416; 51702; 70450; 71045; 71250; 72125; 73030; 74176; 76641; 77012; 80048; 80053; 81001; 81003; 82009; 82550; 82570; 82607; 82746; 82962; 83036; 83540; 83690; 84155; 84165; 84300; 84484; 85025; 85651; 87426; 87635; 88305; 93005; 93306; 93880; 96372; 96375; 97110; 97116; 97163; 97166; 97530; 97535; 99281; 99282; J1644; J1815; J2405; J7030

== ENCOUNTER 2020-04-04 11:55 | Inpatient (IN) | payer MEDICARE, MEDICAID, SELFPAY ==
[2020-04-04] VITALS (10 sets, daily range): BP systolic 88–142; BP diastolic 60–93; PULSE 56–110; RESP 17–18; TEMP 36.3–36.9; O2SAT 93–99; BMI 24.7
--- NOTE | 2020-04-04 12:22 | ECG_ITS ---
[facility] Test Date: 2020-04-04 Pat Name: Vi Hickey Department: Room: Gender: Female Playground Supervisor: : [id number] Requested By: Kaylynn Lawrence Order Number: [id number] Mitchel MD: Soni Lugo M.D. Measurements Intervals [place] Rate: 73 P: 94 [place]: 181 QRS: 18 QRSD: 100 T: 46 QT: 401 QTc: 443 Interpretive Statements SINUS RHYTHM WITH MARKED SINUS ARRHYTHMIA Compared to ECG 03/25/2020 16:35:12 No significant changes Electronically Signed On 04-04-2020 17:43:50 CDT by Soni Lugo M.D. [id number]
--- NOTE | 2020-04-04 12:35 | CTR_ITS ---
PROCEDURE INFORMATION: Exam: CT Head Without Contrast Exam date and time: 04/04/2020 1:11 PM Age: 74 years old Clinical indication: Patient HX: C/O dizziness n/v; Additional info: Vomiting TECHNIQUE: Imaging protocol: Computed tomography of the head without contrast. Radiation optimization: All CT scans at this facility use at least one of these dose optimization techniques: automated exposure control; mA and/or kV adjustment per patient size (includes targeted exams where dose is matched to clinical indication); or iterative reconstruction. COMPARISON: CT head wo con* [id number] 03/25/2020 10:43 AM RADIATION DOSE METRICS: Total DLP (mGy-cm): 768.05 FINDINGS: Brain: Normal. No hemorrhage. Unremarkable white matter. No mass effect. Cerebral ventricles: No ventriculomegaly. Bones/joints: Unremarkable. No acute fracture. Paranasal sinuses: There is mucosal thickening in the paranasal sinuses indicating sinusitis. Mastoid air cells: Visualized mastoid air cells are well aerated. Soft tissues: Unremarkable. CT/CT head wo con* [id number] IMPRESSION: No acute intracranial abnormality. Radiation Dose CTDIVOL = (mGy): DLP = 768.05 (mGy-cm)
--- NOTE | 2020-04-04 12:38 | ED_ITS ---
HPI - Nausea/Vomiting/Diarrhea General: Chief complaint: Upper Respiratory Infection Stated complaint: N/V Time Seen by Provider: 04/04/20 12:13 History of Present Illness: HPI Narrative: This patient is a 74-year-old female who comes in today with cough and vomiting. She is also very weak and her son who is with her says that he had to put her to bed last night and get her up this morning because she was so weak she could not do it herself. She was here last week with similar symptoms and had rhabdomyolysis. She also has recently been diagnosed with a breast mass and bony metastases. She has had several negative COVID tests during the course of this illness. The patient is in quite a bit of distress and constantly coughing and retching. I am not able to get any detailed history from her at all. MD elicited complaint: vomiting and other (Cough) Onset (ago): day(s) (2) Associated nausea: No Associated symtoms: Denies nausea Review of Systems General: Reports: ROS unobtainable due to medical condition Const: Denies: fever(s) or chills Resp: Denies: dyspnea or productive cough GI: Denies: nausea or vomiting PFSH ED PFSH: Medical History (Updated 04/04/20 @ 18:38 by Jeff Peoples MD) AC (acromioclavicular) arthritis JUMANA (acute kidney injury) Anemia Anemia Carpal tunnel syndrome Cervical stenosis of spine Chronic sinusitis DDD (degenerative disc disease), cervical DDD (degenerative disc disease), lumbar Dementia in other diseases Diabetes Diabetes mellitus Diastolic heart failure Facet joint disease Generalized anxiety disorder HTN (hypertension) Hyperlipidemia Major depressive disorder, recurrent episode, moderate with anxious distress Osteoarthritis Recurrent falls Restless legs syndrome (RLS) Rhabdomyolysis Syncope Trigeminal neuralgia Wears hearing aid in both ears Surgical History S/P hysterectomy S/P knee replacement Bilateral S/P mastectomy Left total S/P rotator cuff repair Right Family History Other CAD (coronary artery disease) Diabetes Hypertension Social History Smoking and tobacco status: never smoked Second hand smoke exposure: No Smoking risk assessment/counseling performed?: No Alcohol intake: never Desire information about alcohol rehabilitation?: No Counseling given: No Desire information about substance/drug rehabilitation?: No Counseling given: No Adopted: No Caregiver/support person: No Lives independently: Yes Household members: none Housing: Apartment Marital status: / Number of children: 3 service: No Current occupational status: retired History of recent travel: No Current gender identity: Female Physical Exam Narrative: EXAM NARRATIVE: Constantly retching and coughing during exam Const: COMMON NORMALS: alert GENERAL APPEARANCE: cooperative and in distress ORIENTATION/CONSCIOUSNESS: Yes awake HENMT: HEAD & SCALP: normal to inspection FACE & SINUS: normal facial exam Eye: GENERAL EYE: appearance normal, both eyes and all related structures Neck/C-Spine: COMMON NORMALS: supple, no meningeal signs and no JVD Chest: COMMONS NORMALS: normal inspection of the chest Resp: COMMON NORMALS: clear to auscultation bilaterally AUSCULTATION: clear to auscultation bilaterally Cardio: COMMON NORMALS: no JVD, regular rate, regular rhythm and No murmurs present (Cardio) RATE: regular rate RHYTHM: regular rhythm GI: COMMON NORMALS: Normal to inspection, nondistended, normoactive bowel sounds present, Soft to palpation and non-tender INSPECTION: Yes normal to inspection AUSCULTATION: Yes normoactive bowel sounds PALPATION: Yes Soft to palpation Back/Pelvis: COMMON NORMALS: thoracic and lumbar spine normal to inspection Extremity: COMMON NORMALS: normal to inspection Neuro: COMMON NORMALS: moves all extremities, no focal motor deficits and no sensory deficits noted SENSORIUM/ORIENTATION: Yes alert MENINGEAL SIGNS: Yes no meningeal signs Psych: COMMON NORMALS: mental status grossly normal, cooperative and normal affect Skin: COMMON NORMALS: no rashes or lesions noted and turgor normal GENERAL SKIN EXAM: no rashes or lesions noted and turgor normal Course ED course: This patient presented with very persistent cough and retching. This resolved after some Ativan and Zofran. She also was given some Pepcid with the thought that some reflux might be causing her coughing. Her work-up here in the ER was really pretty unremarkable but she was not able to ambulate on her own at all. This is not her baseline. This started yesterday according to her son but is worse this morning. She is quite off balance and is not clear if this is really orthostatic or related to weakness. She had a similar presentation recently but no cause was found then either. I will admit her to the hospital today for her safety as she is covered with bruises from all of the fall she has had. She lives alone. She may need shelter placement. Vital Signs: Vital signs: Vital Signs Temperature 97.3 F L 04/04/20 19:09 Pulse Rate 56 L 04/04/20 19:09 Respiratory Rate 17 04/04/20 19:09 Blood Pressure 108/65 04/04/20 19:09 Pulse Oximetry 96 04/04/20 19:09 MDM - Nausea/Vomiting/Diarrhea Lab Data: Labs: Lab Results 04/04/20 04/04/20 04/04/20 Range/Units 12:20 12:20 12:20 WBC 9.4 (4.0-10.0) 10^3/ uL RBC 4.08 L (4.1-5.3) 10^6/u L Hgb 11.2 L (11.5-15.3) g/dL Hct 36.9 L (37.0-47.0) % MCV 90.4 (81-99) fL MCH 27.5 L (28.0-34.0) pg MCHC 30.4 (30.0-36.0) g/dL RDW 16.7 H (12.1-15.1) % Plt Count 294 (130-400) 10^3/c mm MPV 10.2 (7.4-10.4) fL Neut % (Auto) 51.8 % Lymph % (Auto) 30.7 % Charlton % (Auto) 8.8 % Eos % (Auto) 7.5 % Baso % (Auto) 0.6 % Neut # (Auto) 4.85 (1.8-7.7) 10^3/u L Lymph # (Auto) 2.9 (0.8-4.8) 10^3/u L Charlton # (Auto) 0.8 (0.2-0.9) 10^3/u L Eos # (Auto) 0.7 (0.0-0.8) 10^3/u L Baso # (Auto) 0.1 (0.0-0.1) 10^3/u L Nucleated RBC % (a uto) 0 % Nucleated RBCs # 0.0 /100WBC Sodium 142 (136-145) mmol/L Potassium 4.2 (3.5-5.1) mmol/L Chloride 102 (98-107) mmol/L Carbon Dioxide 23 (22-29) mmol/L Anion Gap 21.2 H (5-19) BUN 21 (8-23) mg/dL Creatinine 1.5 H (0.5-0.9) mg/dL GFR Calculation Not Reportable Glucose 139 H (65-115) mg/dL Calculated Osmolal ity 299 H (285-295) mOsm/k g Calcium 10.1 (8.5-10.5) mg/dL Total Bilirubin 0.3 (0.15-1.2) mg/dL AST 18 (0-32) U/L ALT 15 (0-33) U/L Alkaline Phosphata se 108 H (35-105) IU/L Creatine Kinase 215 H (26-192) U/L Troponin T Baselin e 40 H (0-10) ng/L Troponin T 120 Min ori (0-10) ng/L Delta Troponin T (0-10) ABS# NT-Pro-B Natriuret Pep (0-450) pg/mL Total Protein 6.8 (6.6-8.7) g/dL Albumin 4.7 (3.5-5.2) g/dL Globulin 2.1 (1.3-4.6) g/dL Lipase 24 (13-60) U/L Urine Color (Yellow) Urine Appearance (CLEAR) Urine pH (5-7) Ur Specific Gravit y (1.005-1.030) Urine Protein (Negative) Urine Glucose (UA) (Normal) Urine Ketones (Negative) Urine Blood (Negative) Urine Nitrate (Negative) Urine Bilirubin (Negative) Urine Urobilinogen (Negative) mg/dL Ur Leukocyte Yessenia ase (Negative) Urine RBC (0-2) /hpf Urine WBC (0-5) /hpf Ur Squamous Epith Cells (0-5) /hpf Amorphous Sediment Urine Bacteria (NONE) /hpf Carbamazepine (4.0-12.0) ug/mL 04/04/20 04/04/20 04/04/20 Range/Units 12:20 12:20 14:30 WBC (4.0-10.0) 10^3/ uL RBC (4.1-5.3) 10^6/u L Hgb (11.5-15.3) g/dL Hct (37.0-47.0) % MCV (81-99) fL MCH (28.0-34.0) pg MCHC (30.0-36.0) g/dL RDW (12.1-15.1) % Plt Count (130-400) 10^3/c mm MPV (7.4-10.4) fL Neut % (Auto) % Lymph % (Auto) % Charlton % (Auto) % Eos % (Auto) % Baso % (Auto) % Neut # (Auto) (1.8-7.7) 10^3/u L Lymph # (Auto) (0.8-4.8) 10^3/u L Charlton # (Auto) (0.2-0.9) 10^3/u L Eos # (Auto) (0.0-0.8) 10^3/u L Baso # (Auto) (0.0-0.1) 10^3/u L Nucleated RBC % (a uto) % Nucleated RBCs # /100WBC Sodium (136-145) mmol/L Potassium (3.5-5.1) mmol/L Chloride (98-107) mmol/L Carbon Dioxide (22-29) mmol/L Anion Gap (5-19) BUN (8-23) mg/dL Creatinine (0.5-0.9) mg/dL GFR Calculation Glucose (65-115) mg/dL Calculated Osmolal ity (285-295) mOsm/k g Calcium (8.5-10.5) mg/dL Total Bilirubin (0.15-1.2) mg/dL AST (0-32) U/L ALT (0-33) U/L Alkaline Phosphata se (35-105) IU/L Creatine Kinase (26-192) U/L Troponin T Baselin e (0-10) ng/L Troponin T 120 Min ori 11.76 H (0-10) ng/L Delta Troponin T -28.24 L (0-10) ABS# NT-Pro-B Natriuret Pep (0-450) pg/mL Total Protein (6.6-8.7) g/dL Albumin (3.5-5.2) g/dL Globulin (1.3-4.6) g/dL Lipase (13-60) U/L Urine Color Yellow (Yellow) Urine Appearance Clear (CLEAR) Urine pH 5 (5-7) Ur Specific Gravit y 1.010 (1.005-1.030) Urine Protein Neg (Negative) Urine Glucose (UA) Norm (Normal) Urine Ketones Negative (Negative) Urine Blood Neg (Negative) Urine Nitrate Negative (Negative) Urine Bilirubin Neg (Negative) Urine Urobilinogen Norm (Negative) mg/dL Ur Leukocyte Yessenia ase Negative (Negative) Urine RBC None (0-2) /hpf Urine WBC None (0-5) /hpf Ur Squamous Epith Cells Rare (0-5) /hpf Amorphous Sediment Not Reportable Urine Bacteria Trace (NONE) /hpf Carbamazepine 12.6 H (4.0-12.0) ug/mL 10/20 Range/Units 14:30 WBC (4.0-10.0) 10^3/ uL RBC (4.1-5.3) 10^6/u L Hgb (11.5-15.3) g/dL Hct (37.0-47.0) % MCV (81-99) fL MCH (28.0-34.0) pg MCHC (30.0-36.0) g/dL RDW (12.1-15.1) % Plt Count (130-400) 10^3/c mm MPV (7.4-10.4) fL Neut % (Auto) % Lymph % (Auto) % Charlton % (Auto) % Eos % (Auto) % Baso % (Auto) % Neut # (Auto) (1.8-7.7) 10^3/u L Lymph # (Auto) (0.8-4.8) 10^3/u L Charlton # (Auto) (0.2-0.9) 10^3/u L Eos # (Auto) (0.0-0.8) 10^3/u L Baso # (Auto) (0.0-0.1) 10^3/u L Nucleated RBC % (a uto) % Nucleated RBCs # /100WBC Sodium (136-145) mmol/L Potassium (3.5-5.1) mmol/L Chloride (98-107) mmol/L Carbon Dioxide (22-29) mmol/L Anion Gap (5-19) BUN (8-23) mg/dL Creatinine (0.5-0.9) mg/dL GFR Calculation Glucose (65-115) mg/dL Calculated Osmolal ity (285-295) mOsm/k g Calcium (8.5-10.5) mg/dL Total Bilirubin (0.15-1.2) mg/dL AST (0-32) U/L ALT (0-33) U/L Alkaline Phosphata se (35-105) IU/L Creatine Kinase (26-192) U/L Troponin T Baselin e (0-10) ng/L Troponin T 120 Min ori (0-10) ng/L Delta Troponin T (0-10) ABS# NT-Pro-B Natriuret Pep 93 (0-450) pg/mL Total Protein (6.6-8.7) g/dL Albumin (3.5-5.2) g/dL Globulin (1.3-4.6) g/dL Lipase (13-60) U/L Urine Color (Yellow) Urine Appearance (CLEAR) Urine pH (5-7) Ur Specific Gravit y (1.005-1.030) Urine Protein (Negative) Urine Glucose (UA) (Normal) Urine Ketones (Negative) Urine Blood (Negative) Urine Nitrate (Negative) Urine Bilirubin (Negative) Urine Urobilinogen (Negative) mg/dL Ur Leukocyte Yessenia ase (Negative) Urine RBC (0-2) /hpf Urine WBC (0-5) /hpf Ur Squamous Epith Cells (0-5) /hpf Amorphous Sediment Urine Bacteria (NONE) /hpf Carbamazepine (4.0-12.0) ug/mL Discharge Plan Discharge Patient Disposition: Admitted As Inpatient Admit Provider: Jeff Peoples Condition: Stable Discharge Date/Time: 04/04/20 17:57 Coding Level of Care Code ED Dark Room Attendant for Jimmyg Fwd Exam Comprehensive
[2020-04-04] MEDS: ondansetron 2 mg/ML SDV 2 mL 4 MG IVP (12:59)
[2020-04-04] MEDS: LORazepam 2 mg/mL INJ 1 mL 1 MG IVP (12:59)
[2020-04-04] MEDS: sodium chloride 0.9% 500 ML 999 ML IV ×2 (12:59→17:03)
[2020-04-04] MEDS: famotidine 20 mg/2 mL INJ 40 MG IVP (12:59)
[2020-04-04 13:20] LABS: Basophils # 0.1 10^3/uL (0.0-0.1); Basophils % 0.6 %; Eosinophils # 0.7 10^3/uL (0.0-0.8); Eosinophils % 7.5 %; Hematocrit 36.9 % (37.0-47.0); Hemoglobin 11.2 g/dL (11.5-15.3); Lymphocytes # 2.9 10^3/uL (0.8-4.8); Lymphocytes % 30.7 %; Mean Corpuscular HGB Conc 30.4 g/dL (30.0-36.0); Mean Corpuscular Hemoglobin 27.5 pg (28.0-34.0); Mean Corpuscular Volume 90.4 fL (81-99); Mean Platelet Volume 10.2 fL (7.4-10.4); Monocytes # 0.8 10^3/uL (0.2-0.9); Monocytes % 8.8 %; Neutrophils # 4.85 10^3/uL (1.8-7.7); Neutrophils % 51.8 %; Nucleated Red Blood Cells % 0 %; Platelet Count 294 10^3/cmm (130-400); Red Blood Count 4.08 10^6/uL (4.1-5.3); Red Cell Distribution Width 16.7 % (12.1-15.1); White Blood Count 9.4 10^3/uL (4.0-10.0)
[2020-04-04 13:26] LABS: Carbamazepine Tegretol 12.6 ug/mL (4.0-12.0)
[2020-04-04 13:30] LABS: Alanine Aminotransferase 15 U/L (0-33); Albumin Level 4.7 g/dL (3.5-5.2); Alkaline Phosphatase 108 IU/L (35-105); Aspartate Amino Transferase 18 U/L (0-32); Blood Urea Nitrogen 21 mg/dL (8-23); Calcium 10.1 mg/dL (8.5-10.5); Carbon Dioxide 23 mmol/L (22-29); Chloride 102 mmol/L (98-107); Creatine Phosphokinase 215 U/L (26-192); Globulin 2.1 g/dL (1.3-4.6); Glucose 139 mg/dL (65-115); Lipase 24 U/L (13-60); Osmolality Calculated 299 mOsm/kg (285-295); Sodium 142 mmol/L (136-145); Total Bilirubin 0.3 mg/dL (0.15-1.2); Total Protein 6.8 g/dL (6.6-8.7)
[2020-04-04 13:31] LABS: Troponin(5th) Baseline 40 ng/L (0-10)
[2020-04-04 13:43] LABS: Anion Gap 21.2 (5-19)
[2020-04-04 13:44] LABS: Potassium 4.2 mmol/L (3.5-5.1)
--- NOTE | 2020-04-04 14:22 | ECG_ITS ---
[facility] Test Date: 2020-04-04 Pat Name: Vi Hickey Department: Room: Gender: Female Controls Technician: : 1945 Requested By: Kaylynn Lawrence Order Number: [id number] Mitchel MD: Soni Lugo M.D. Measurements Intervals [place] Rate: 55 P: -33 AR: 159 QRS: 18 QRSD: 98 T: 58 QT: 443 QTc: 427 Interpretive Statements SINUS BRADYCARDIA Compared to ECG 04/04/2020 12:46:48 Sinus rhythm no longer present Sinus arrhythmia no longer present Electronically Signed On 04-04-2020 18:02:56 CDT by Soni Lugo M.D. [id number]
[2020-04-04 14:25] LABS: Blood Urine Neg (Negative); Glucose Urine UA Norm (Normal); Ketones Urine Negative (Negative); Nitrate Urine Negative (Negative); Protein Urine Neg (Negative); Urine Appearance Clear (CLEAR); Urine Color Yellow (Yellow); pH Urine 5 (5-7)
[2020-04-04 14:26] LABS: Add Urine Culture? No; Bacteria Urine TRACE /hpf; Bilirubin Urine Neg (Negative); Leukocyte Esterase Urine Negative (Negative); Squamous Epithelial Cell Urine RARE /hpf (0-5); Urobilinogen Urine Norm (Negative)
--- NOTE | 2020-04-04 14:41 | XRR_ITS ---
PROCEDURE INFORMATION: Exam: XR Chest, 1 View Exam date and time: 04/04/2020 2:42 PM Age: 74 years old Clinical indication: Cough TECHNIQUE: Imaging protocol: XR of the chest Views: 1 view. COMPARISON: CT chest [place] [id number] 03/29/2020 3:52 PM FINDINGS: Lungs: The lungs are hyperinflated with mild fibrosis. No consolidation. Pulmonary vascularity is within normal limits. Pleural space: Unremarkable. No pleural effusion. No pneumothorax. Heart/Mediastinum: Borderline cardiomegaly. Bones/joints: No acute abnormality. There are clips in the left axilla XR/XR chest 1V portable [id number] IMPRESSION: No acute findings.
[2020-04-04 15:15] LABS: Troponin 5 2HR 11.76 ng/L (0-10)
--- NOTE | 2020-04-04 17:08 | P.HP_ITS ---
Providers/Chief Complaint Admitting Physician: Jeff Peoples MD Primary Care Provider: GAYLE Terrell Chief Complaint: N/V History of Present Illness 74 year old female with past medical history of diabetes mellitus, CA left breast status post left breast mastectomy, diastolic heart failure, recently diagnosed with right breast mass status post ultrasound-guided biopsy (report awaited) facet joint disease, HTN, Hyperlipidemia, Osteoarthritis, Restless legs syndrome, Trigeminal neuralgia came in with chief complaint of, dizziness, followed by transient loss of consciousness, with no reported seizure-like activity. nonproductive Cough, generalized weakness and fatigue.SHe was recently discharged from the after extensive work for syncope.She was to follow oncology as an outpatient for right breast mass work up.During the recent admission, she received, CT head without contrast: Which failed to show any acute intracranial pathology, CT chest without contrast:right axillary lymphadenopathy, multiple noncalcified nodular density in bilateral lungs. Breast ultrasound: Showed large solid mass. 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 Cervical spine CT : No acute cervical spine fracture. 2D echo was done: Which showed normal LVEF: 60%. No RWMA.Carotid Doppler study: Bilateral ICA stenosis less than 50%. There was no abnormality on the cafeteria monitor during the last admission. Orthostatic vitals were negative. Rhabdo was resolved. She also presented with JUMANA which was resolved on discharge. Physical therapy had evaluated the patient during the last admission, and they have cleared her to go home with home health aid. Today in the ER: CT head was done: Which has failed to show any acute intracranial pathology. X-ray chest: No acute abnormality. EKG: Showed sinus bradycardia. In the ER she was constant coughing and retching: She received Zofran and Ativan as she was extremely restless in ER. Blood sugar was fine in the ER:139. Vitals and labs reviewed: Review of Systems Const: Denies: fever(s), chills or body aches Card: Denies: palpitations, edema, swelling of feet/ankles, dyspnea on exertion, orthopnea or leg pain with exertion GI: Denies: abdominal pain, diarrhea or constipation : Denies: flank pain Musc: Denies: back pain, extremity pain or extremity swelling Neuro: Denies: headache(s) Medications/Allergies Home Medications Medication Instructions Recorded Confirmed Last Taken Type cholecalciferol (vitamin D3) 25 1,000 unit PO DAILY cap 07/09/19 03/25/20 03/24/20 History mcg (1,000 unit) capsule furosemide 40 mg tablet 40 mg PO BID 07/09/19 03/25/20 03/24/20 History levothyroxine 75 mcg capsule 75 mcg PO DAILY cap 07/09/19 03/25/20 03/24/20 History nebivolol 10 mg tablet 10 mg PO DAILY tab 07/09/19 03/25/20 03/24/20 History omeprazole 40 mg capsule,delayed 40 mg PO BID 07/09/19 03/25/20 03/24/20 History release potassium chloride 10 mEq 10 meq PO DAILY tab 07/09/19 03/25/20 03/24/20 History tablet,extended release ropinirole 2 mg tablet 2 mg PO BID PRN 07/09/19 03/25/20 03/24/20 History simvastatin 20 mg tablet 20 mg PO DAILY tab 07/09/19 03/25/20 03/24/20 History sitagliptin 100 mg tablet 100 mg PO DAILY tab 07/09/19 03/25/20 03/24/20 History magnesium oxide 400 mg PO DAILY 10/11/19 03/25/20 03/24/20 History isosorbide mononitrate 30 mg 30 mg PO DAILY #30 tab 12/10/19 03/25/20 03/24/20 Rx tablet,extended release 24 hr rivastigmine tartrate 3 mg capsule 3 mg PO BID #180 cap 03/06/20 03/25/20 03/24/20 Rx zonisamide 25 mg capsule 25 mg PO Q12H #60 cap 03/12/20 03/25/20 03/24/20 Rx ondansetron HCl [Zofran] 4 mg PO Q6H PRN #15 tab 03/22/20 03/25/20 Unknown Rx Celexa 10 mg PO DAILY 03/25/20 03/25/20 03/24/20 History carbamazepine 200 mg PO BID 03/25/20 03/25/20 03/24/20 History irbesartan 150 mg PO DAILY 03/25/20 03/25/20 03/24/20 History metformin 1,000 mg PO DAILY 0903/25/20 03/24/20 History Allergies Allergy/AdvReac Type Severity Reaction Status Date / Time NAYELI Inhibitors Allergy Unknown Unknown Verified 02/19/20 09:15 Penicillins Allergy Unknown Unknown Verified 03/25/20 17:39 Sulfa (Sulfonamide Allergy Unknown Unknown Verified 02/19/20 09:15 Antibiotics) PFSH Acute PFSH: Medical History (Updated 04/04/20 @ 18:32 by Jeff Peoples MD) AC (acromioclavicular) arthritis JUMANA (acute kidney injury) Anemia Anemia Carpal tunnel syndrome Cervical stenosis of spine Chronic sinusitis DDD (degenerative disc disease), cervical DDD (degenerative disc disease), lumbar Dementia in other diseases Diabetes Diabetes mellitus Diastolic heart failure Facet joint disease Generalized anxiety disorder HTN (hypertension) Hyperlipidemia Major depressive disorder, recurrent episode, moderate with anxious distress Osteoarthritis Recurrent falls Restless legs syndrome (RLS) Rhabdomyolysis Syncope Trigeminal neuralgia Wears hearing aid in both ears Surgical History S/P hysterectomy S/P knee replacement Bilateral S/P mastectomy Left total S/P rotator cuff repair Right Family History Other CAD (coronary artery disease) Diabetes Hypertension Social History Smoking and tobacco status: never smoked Second hand smoke exposure: No Smoking risk assessment/counseling performed?: No Alcohol intake: never Desire information about alcohol rehabilitation?: No Counseling given: No Desire information about substance/drug rehabilitation?: No Counseling given: No Adopted: No Caregiver/support person: No Lives independently: Yes Household members: none Housing: Apartment Marital status: / Number of children: 3 service: No Current occupational status: retired History of recent travel: No Current gender identity: Female Vitals/I&O/Wt Last Vital Signs Pulse 61 04/04/20 17:00 Resp 18 04/04/20 17:00 BP 107/65 04/04/20 17:00 Pulse Ox 96 04/04/20 17:00 04/04/20 04/04/20 04/04/20 06:59 14:59 22:59 Intake Total 500 / 500 Balance 500 / 500 Weight last 48 hrs Weight 61.235 kg Physical Exam Const: COMMON NORMALS: patient oriented x3 HENMT: COMMON NORMALS: normocephalic, atraumatic, hearing grossly normal bilaterally and external ears normal HEAD & SCALP: normocephalic and atraumatic EXTERNAL EAR: Yes external ears normal Eye: COMMON NORMALS: no scleral icterus GENERAL EYE: appearance normal, both eyes and all related structures Chest: COMMONS NORMALS: normal inspection of the chest and normal palpation of entire chest wall CHEST: Yes Symmetrical chest wall rise Resp: COMMON NORMALS: normal respiratory effort, No retractions, No use of accessory muscles and clear to auscultation bilaterally EFFORT & INSPECTION: Yes symmetric chest movement AUSCULTATION: clear to auscultation bilaterally Cardio: COMMON NORMALS: regular rate, regular rhythm, S1 normal heart sound present, S2 normal heart sound present, No gallops present (Cardio), No murmurs present (Cardio), No rub (Cardio) and Peripheral pulses 2+ throughout RATE: regular rate RHYTHM: regular rhythm HEART SOUNDS: S1 normal heart sound present and S2 normal heart sound present PERIPHERAL PULSES: Peripheral pulses 2+ throughout GI: COMMON NORMALS: Normal to inspection, nondistended, normoactive bowel sounds present, Soft to palpation, non-tender, No hepatosplenomegaly present and no masses AUSCULTATION: Yes normoactive bowel sounds PALPATION: Yes Soft to palpation and Yes No hepatosplenomegaly present RECTAL EXAM: deferred Extremity: COMMON NORMALS: no clubbing, cyanosis or edema and no pedal edema Neuro: COMMON NORMALS: patient oriented x3 Data : 04/04/20 12:20 04/04/20 12:20 A&P Assessment and plan (1) Syncope: 74 year old female with past medical history of diabetes mellitus, CA left breast status post left breast mastectomy, diastolic heart failure, recently diagnosed with right breast mass status post ultrasound-guided biopsy (report awaited) facet joint disease, HTN, Hyperlipidemia, Osteoarthritis, Restless legs syndrome, Trigeminal neuralgia came in with chief complaint of, dizziness, followed by transient loss of consciousness, with no reported seizure-like activity. nonproductive Cough, generalized weakness and fatigue.SHe was recently discharged from the after extensive work for syncope.She was to follow oncology as an outpatient for right breast mass work up.During the recent admission, she received, CT head without contrast: Which failed to show any acute intracranial pathology, CT chest without contrast:right axillary lymphadenopathy, multiple noncalcified nodular density in bilateral lungs. Breast ultrasound: Showed large solid mass. 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 Cervical spine CT : No acute cervical spine fracture. 2D echo was done: Which showed normal LVEF: 60%. No RWMA.Carotid Doppler study: Bilateral ICA stenosis less than 50%. There was no abnormality on the cafeteria monitor during the last admission. Orthostatic vitals were negative. Rhabdo was resolved. She also presented with JUMANA which was resolved on discharge. Physical therapy had evaluated the patient during the last admission, and they have cleared her to go home with home health aid. Today in the ER: CT head was done: Which has failed to show any acute intracranial pathology. X-ray chest: No acute abnormality. EKG: Showed sinus bradycardia. Continue telemetry monitoring. Monitor orthostatic vital signs Fall precaution Neuro check every 4 hours Since he had recent extensive syncope work-up. We will continue to monitor her for now. Syncope could be possible likely secondary to polypharmacy. We will hold offending medicationS, like carbamazepine, will hold Lasix for now, as she is also having JUMANA. We will consult cardiology cardiology for syncope work-up. Status: Acute (2) Breast mass, right: Right breast mass: Status post right breast ultrasound-guided biopsy: We will follow-up on the biopsy result Status: Acute (3) JUMANA (acute kidney injury): Current serum creatinine is 1.5 baseline serum creatinine is 1. We will hold Lasix, irbesartan. We will do gentle IV haydration. Status: Acute (4) Physical deconditioning: Will continue with physical therapy. Status: Acute (5) Gait instability: Will get PT OT on board. Status: Acute (6) HTN (hypertension): Currently normotensive. We will hold on her antihypertensive medications. We will let her be slightly hypertensive. Status: Acute (7) Diastolic heart failure: Currently compensated. We will continue to hold Lasix. Irbesartan. Status: Acute (8) Diabetes mellitus: Insulin low-dose sliding scale. Monitor fingerstick glucose Status: Acute (9) Anemia: Currently hemoglobin is 11.2: We will continue to monitor CBC. No indication for transfusion. Status: Acute (10) Bone metastasis: Status: Acute Additional A&P Information CODE STATUS: Full code DVT prophylaxis: Heparin 5000 every 12h Disposition:SNF Attestations Medical Necessity Statement*: She needs to be in hospital for possible syncope work-up as well as generalized weakness and JUMANA Coding Level of Care Code Acute Consulting Business Developer for Chg Fwd Exam Comprehensive Diagnoses Syncope R55 Breast mass, right N63.10 UJMANA (acute kidney injury) N17.9 Physical deconditioning R53.81 Gait instability R26.81 HTN (hypertension) I10 Diastolic heart failure I50.30 Diabetes mellitus E11.9 Anemia D64.9 Bone metastasis C79.51
[2020-04-04 17:44] LABS: NT Pro B Type Natriuretic Pept 93 pg/mL (0-450)
--- NOTE | 2020-04-04 18:35 | PM.DCS ---
Discharge Providers Date of Admission: 03/25/2020 Date of Discharge: April 01, 2020 Attending Provider at Admission: Stephanie García MD Attending Provider at Discharge: Jeff Peoples MD Primary Care Provider: GAYLE Terrell Diagnoses at Discharge Discharge Diagnosis (1) Syncope: Status: Resolved (2) Breast mass, right: Status: Acute (3) JUMANA (acute kidney injury): Status: Resolved (4) HTN (hypertension): Status: Acute (5) Diastolic heart failure: Status: Chronic (6) Diabetes mellitus: Status: Acute (7) Anemia: Status: Acute (8) Bone metastasis: Status: Acute Reason for Visit Reason for Visit: N/V Hospital Course Hospital Course: 74-year-old lady who is coming in for second admission last 1 week with past medical history of diabetes mellitus, CA left breast status post left breast mastectomy, diastolic heart failure, recently diagnosed with right breast mass status post ultrasound-guided biopsy (report awaited) facet joint disease, HTN, Hyperlipidemia, Osteoarthritis, Restless legs syndrome, Trigeminal neuralgia who presented from home with recurrent falls, She was discharged after extensive work for syncope. During the recent admission, she received, CT head without contrast: Which failed to show any acute intracranial pathology, CT chest without contrast:right axillary lymphadenopathy, multiple noncalcified nodular density in bilateral lungs. Breast ultrasound: Showed large solid mass. 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 Cervical spine CT : No acute cervical spine fracture. 2D echo was done: Which showed normal LVEF: 60%. No RWMA.Carotid Doppler study: Bilateral ICA stenosis less than 50%. There was no abnormality on the site monitor during the last admission.Orthostatic vitals were negative. Syncope was likely vasovagal, or could be due to side effect of polypharmacy. Rhabdo was resolved.JUMANA was resolved. During this hospital she was complaining of right breast lump for which ultrasound right breast was done.she was found to have right breast mass status post right breast biopsy biopsy report is awaited. Patient was discharged in stable condition with home health aid.Discussing with our oncologist was also done.He is aware of the patient and will follow her as outpatient.Patient son have been updated. Patient is being discharged to home with homehealth aid in stable condition. Physical Exam Const: COMMON NORMALS: patient oriented x3 HENMT: COMMON NORMALS: normocephalic, atraumatic, hearing grossly normal bilaterally and external ears normal HEAD & SCALP: normocephalic and atraumatic EXTERNAL EAR: Yes external ears normal Eye: COMMON NORMALS: no scleral icterus GENERAL EYE: appearance normal, both eyes and all related structures Chest: COMMONS NORMALS: normal inspection of the chest and normal palpation of entire chest wall CHEST: Yes Symmetrical chest wall rise Resp: COMMON NORMALS: normal respiratory effort, No retractions, No use of accessory muscles and clear to auscultation bilaterally EFFORT & INSPECTION: Yes symmetric chest movement AUSCULTATION: clear to auscultation bilaterally Cardio: COMMON NORMALS: regular rate, regular rhythm, S1 normal heart sound present, S2 normal heart sound present, No gallops present (Cardio), No murmurs present (Cardio), No rub (Cardio) and Peripheral pulses 2+ throughout RATE: regular rate RHYTHM: regular rhythm HEART SOUNDS: S1 normal heart sound present and S2 normal heart sound present PERIPHERAL PULSES: Peripheral pulses 2+ throughout GI: COMMON NORMALS: Normal to inspection, nondistended, normoactive bowel sounds present, Soft to palpation, non-tender, No hepatosplenomegaly present and no masses AUSCULTATION: Yes normoactive bowel sounds PALPATION: Yes Soft to palpation and Yes No hepatosplenomegaly present RECTAL EXAM: deferred Extremity: COMMON NORMALS: no clubbing, cyanosis or edema and no pedal edema Neuro: COMMON NORMALS: patient oriented x3 Discharge Data Data Completed and Pending: Completed Studies During Hospitalization Category Date Time Status CT head wo con* [id number] Stat Cat Scan 04/04/20 12:35 Completed XR chest 1V faustino ble [id number] Stat Exams 04/04/20 14:41 Completed Pending at discharge Category Date Time Status Complete Blood Co unt w/Auto AM LABS Lab 04/05/20 04:00 Ordered Complete Blood Co unt w/Auto AM LABS Lab 04/06/20 04:00 Ordered Complete Blood Co unt w/Auto AM LABS Lab 04/07/20 04:00 Ordered Comprehensive Met abolic Panel AM LA BS Lab 04/05/20 04:00 Ordered Comprehensive Met abolic Panel AM LA BS Lab 04/06/20 04:00 Ordered Comprehensive Met abolic Panel AM LA BS Lab 04/07/20 04:00 Ordered Magnesium AM LABS Lab 04/05/20 04:00 Ordered Magnesium AM LABS Lab 04/06/20 04:00 Ordered Magnesium AM LABS Lab 04/07/20 04:00 Ordered Phosphorus AM LAB S Lab 04/05/20 04:00 Ordered Phosphorus AM LAB S Lab 04/06/20 04:00 Ordered Phosphorus AM LAB S Lab 04/07/20 04:00 Ordered Troponin(5th) 6 h our. Timed Lab 04/04/20 18:16 Received Labs from last 24 hours 04/04/20 04/04/20 04/04/20 18:16 14:30 14:30 WBC RBC Hgb Hct MCV MCH MCHC RDW Plt Count MPV Neut % (Auto) Lymph % (Auto) [place] % (Auto) Eos % (Auto) Baso % (Auto) Neut # (Auto) Lymph # (Auto) [place] # (Auto) Eos # (Auto) Baso # (Auto) Nucleated RBC % (a uto) Nucleated RBCs # Sodium Potassium Chloride Carbon Dioxide Anion Gap BUN Creatinine GFR Calculation Glucose Calculated Osmolal ity Calcium Total Bilirubin AST ALT Alkaline Phosphata se Creatine Kinase Troponin T Baselin e Troponin T 120 Min [place] 11.76 H Delta Troponin T -28.24 L Troponin T Hi Sens 6Hr Pending Troponin T Hi Sens 6Hr Delta Pending NT-Pro-B Natriuret Pep 93 Total Protein Albumin Globulin Lipase Urine Color Urine Appearance Urine pH Ur Specific Gravit y Urine Protein Urine Glucose (UA) Urine Ketones Urine Blood Urine Nitrate Urine Bilirubin Urine Urobilinogen Ur Leukocyte Yessenia ase Urine RBC Urine WBC Ur Squamous Epith Cells Amorphous Sediment Urine Bacteria Carbamazepine 04/04/20 04/04/20 04/04/20 12:20 12:20 12:20 WBC RBC Hgb Hct MCV MCH MCHC RDW Plt Count MPV Neut % (Auto) Lymph % (Auto) [place] % (Auto) Eos % (Auto) Baso % (Auto) Neut # (Auto) Lymph # (Auto) [place] # (Auto) Eos # (Auto) Baso # (Auto) Nucleated RBC % (a uto) Nucleated RBCs # Sodium Potassium Chloride Carbon Dioxide Anion Gap BUN Creatinine GFR Calculation Glucose Calculated Osmolal ity Calcium Total Bilirubin AST ALT Alkaline Phosphata se Creatine Kinase Troponin T Baselin e 40 H Troponin T 120 Min [place] Delta Troponin T Troponin T Hi Sens 6Hr Troponin T Hi Sens 6Hr Delta NT-Pro-B Natriuret Pep Total Protein Albumin Globulin Lipase Urine Color Yellow Urine Appearance Clear Urine pH 5 Ur Specific Gravit y 1.010 Urine Protein Neg Urine Glucose (UA) Norm Urine Ketones Negative Urine Blood Neg Urine Nitrate Negative Urine Bilirubin Neg Urine Urobilinogen Norm Ur Leukocyte Yessenia ase Negative Urine RBC None Urine WBC None Ur Squamous Epith Cells Rare Amorphous Sediment Not Reportable Urine Bacteria Trace Carbamazepine 12.6 H 04/04/20 04/04/20 12:20 12:20 WBC 9.4 RBC 4.08 L Hgb 11.2 L Hct 36.9 L MCV 90.4 MCH 27.5 L MCHC 30.4 RDW 16.7 H Plt Count 294 MPV 10.2 Neut % (Auto) 51.8 Lymph % (Auto) 30.7 [place] % (Auto) 8.8 Eos % (Auto) 7.5 Baso % (Auto) 0.6 Neut # (Auto) 4.85 Lymph # (Auto) 2.9 [place] # (Auto) 0.8 Eos # (Auto) 0.7 Baso # (Auto) 0.1 Nucleated RBC % (a uto) 0 Nucleated RBCs # 0.0 Sodium 142 Potassium 4.2 Chloride 102 Carbon Dioxide 23 Anion Gap 21.2 H BUN 21 Creatinine 1.5 H GFR Calculation Not Reportable Glucose 139 H Calculated Osmolal ity 299 H Calcium 10.1 Total Bilirubin 0.3 AST 18 ALT 15 Alkaline Phosphata se 108 H Creatine Kinase 215 H Troponin T Baselin e Troponin T 120 Min [place] Delta Troponin T Troponin T Hi Sens 6Hr Troponin T Hi Sens 6Hr Delta NT-Pro-B Natriuret Pep Total Protein 6.8 Albumin 4.7 Globulin 2.1 Lipase 24 Urine Color Urine Appearance Urine pH Ur Specific Gravit y Urine Protein Urine Glucose (UA) Urine Ketones Urine Blood Urine Nitrate Urine Bilirubin Urine Urobilinogen Ur Leukocyte Yessenia ase Urine RBC Urine WBC Ur Squamous Epith Cells Amorphous Sediment Urine Bacteria Carbamazepine Vitals: Last Vital Signs Temp 98.5 F 04/04/20 17:08 Pulse 61 04/04/20 17:56 Resp 18 04/04/20 17:56 BP 107/65 04/04/20 17:56 Pulse Ox 96 04/04/20 17:56 Discharge Plan Discharge Patient Disposition: Home Health Service Condition: Stable Prescriptions: Continued cholecalciferol (vitamin D3) 1,000 unit capsule 1,000 unit PO DAILY RF: 0 omeprazole 40 mg capsule,delayed release(DR/EC) 40 mg PO BID RF: 0 levothyroxine 75 mcg capsule 75 mcg PO DAILY RF: 0 simvastatin 20 mg tablet 20 mg PO DAILY RF: 0 ropinirole 2 mg tablet 2 mg PO BID PRN (Reason: RESTLESS LEG SYNDROME) RF: 0 rivastigmine tartrate 3 mg capsule 3 mg PO BID Qty: 180 RF: 1 zonisamide [Zonegran] 25 mg capsule 25 mg PO Q12H Qty: 60 RF: 0 ondansetron HCl [Zofran] 4 mg tablet 4 mg PO Q6H PRN (Reason: nausea and vomiting) Qty: 15 RF: 0 metformin 500 mg Tablet Extended Release 24 Hr 1,000 mg PO DAILY RF: 0 citalopram [Celexa] 10 mg tablet 10 mg PO DAILY RF: 0 magnesium oxide 400 mg magnesium Tablet 400 mg PO DAILY RF: 0 Changed carbamazepine 200 mg Tablet 100 mg PO BID Qty: 0 RF: 0 irbesartan 150 mg Tablet 75 mg PO DAILY Qty: 0 RF: 0 Discontinued furosemide 40 mg tablet 40 mg PO BID RF: 0 Januvia 100 mg tablet 100 mg PO DAILY RF: 0 Bystolic 10 mg tablet 10 mg PO DAILY RF: 0 potassium chloride [Klor-Con 10] 10 mEq tablet extended release 10 meq PO DAILY RF: 0 isosorbide mononitrate 30 mg tablet extended release 24 hr 30 mg PO DAILY Qty: 30 RF: 4 Discharge Orders: Discharge Order (Routine); Ordered 04/07/20 Ordered By: Sawyer Barajas Referrals: [facility] [place] [facility] ([facility]) [Outside] David Chan FNP-C [Primary Care Provider] - 04/10/20 9:00 am Roberth Saenz MD [Physician] - 7-10 days Discharge Diet: Cardiac and Low Salt Discharge Activity: Resume usual activity Patient Instructions: Syncope, Acute Kidney Injury (GEN), Low Sodium Diet (GEN) Activity Restrictions/Additional Instructions: Follow-up with your primary care provider within next 1 to 3 days for blood pressure check. Multiple of her antihypertensive and diabetes medications have been stopped. You are not supposed to take Bystolic, furosemide, Imdur, Januvia. Discharge Date/Time: 04/07/20 12:55 Discharge Attestations Time Spent in Discharge Care*: greater than 30 min Specific Discharge Activities: Specific discharge activities: educating patient, educating and/or supporting family/caregiver, discussing with pcp/other providers, discussing with case manager specialist/social workers/dc planners, documenting/other paperwork and evaluating patient/reviewing data Status at Discharge: Cognitive status at discharge: cognitively intact, Behavioral status at discharge: cooperative, Functional status at discharge: independent ambulation Overall status at discharge: patient is back to baseline Quality Metrics Clinical Quality Measures During this hospital stay, did patient experience: None Coding Level of Care Code Acute Geophysical Laboratory Supervisor for Chg Fwd Exam Comprehensive Diagnoses Syncope R55 Breast mass, right N63.10 JUMANA (acute kidney injury) N17.9 HTN (hypertension) I10 Diastolic heart failure I50.30 Diabetes mellitus E11.9 Anemia D64.9 Bone metastasis C79.51
--- NOTE | 2020-04-04 18:54 | PC.NURSE ---
Patient home medication in [facility].
[2020-04-04 18:57] LABS: Glucose Point of Care 84 mg/dL (70-110)
[2020-04-04 19:00] LABS: Troponin 5 6HR 44.14 ng/L (0-10); Troponin 5 6HR Delta 4.14 ng/L (0-12)
[2020-04-04 20:35] LABS: Glucose Point of Care 139 mg/dL (70-110)
[2020-04-04] MEDS: HYDROcodone-acetaminophen 5-325 mg Tablet 1 TAB PO (21:05)
[2020-04-04] MEDS: sodium chloride 0.9% 1,000 ML 75 ML IV (21:10)
[2020-04-04] MEDS: ropinirole 2 mg Tablet PO (23:46)
[2020-04-05] VITALS: BP 122/73; PULSE 72; RESP 20; TEMP 36.9; O2SAT 96
[2020-04-05 04:00] VITALS: BP 124/76; PULSE 68; RESP 18; TEMP 36.8; O2SAT 95
[2020-04-05 05:16] LABS: Basophils % 0.5 %; Eosinophils # 0.7 10^3/uL (0.0-0.8); Eosinophils % 8.9 %; Hematocrit 32.3 % (37.0-47.0); Hemoglobin 9.5 g/dL (11.5-15.3); Lymphocytes # 2.7 10^3/uL (0.8-4.8); Lymphocytes % 36.2 %; Mean Corpuscular HGB Conc 29.4 g/dL (30.0-36.0); Mean Corpuscular Volume 91.8 fL (81-99); Monocytes # 0.6 10^3/uL (0.2-0.9); Monocytes % 8.4 %; Neutrophils # 3.42 10^3/uL (1.8-7.7); Neutrophils % 45.7 %; Nucleated Red Blood Cells % 0 %; Platelet Count 243 10^3/cmm (130-400); Red Blood Count 3.52 10^6/uL (4.1-5.3); Red Cell Distribution Width 16.9 % (12.1-15.1); White Blood Count 7.5 10^3/uL (4.0-10.0)
[2020-04-05 05:40] LABS: Alanine Aminotransferase 10 U/L (0-33); Albumin Level 3.8 g/dL (3.5-5.2); Alkaline Phosphatase 85 IU/L (35-105); Anion Gap 13.6 (5-19); Aspartate Amino Transferase 15 U/L (0-32); Blood Urea Nitrogen 22 mg/dL (8-23); Calcium 9.1 mg/dL (8.5-10.5); Carbon Dioxide 25 mmol/L (22-29); Chloride 108 mmol/L (98-107); Globulin 1.9 g/dL (1.3-4.6); Glucose 73 mg/dL (65-115); Magnesium 1.6 mg/dL (1.7-2.3); Osmolality Calculated 298 mOsm/kg (285-295); Phosphorus 3.8 mg/dL (2.5-4.5); Potassium 3.6 mmol/L (3.5-5.1); Sodium 143 mmol/L (136-145); Total Bilirubin 0.2 mg/dL (0.15-1.2); Total Protein 5.7 g/dL (6.6-8.7)
[2020-04-05] MEDS: heparin 5,000 unit/mL INJ 1 mL 5000 UNIT SUBCUT ×2 (06:01→18:12)
[2020-04-05 06:49] LABS: Glucose Point of Care 81 mg/dL (70-110)
[2020-04-05 07:19] VITALS: BP 129/72; PULSE 76; RESP 20; TEMP 36.9; O2SAT 97
[2020-04-05] MEDS: sodium chloride 0.9% 1,000 ML 75 ML IV ×2 (08:36→21:09)
[2020-04-05] MEDS: pantoprazole DR 40 mg Tablet PO (08:36)
[2020-04-05] MEDS: HYDROcodone-acetaminophen 5-325 mg Tablet 1 TAB PO (08:37)
[2020-04-05] MEDS: ropinirole 2 mg Tablet PO ×2 (08:37→18:12)
[2020-04-05] MEDS: levothyroxine 150 mcg Tablet 75 MCG PO (08:37)
[2020-04-05 10:34] LABS: Glucose Point of Care 81 mg/dL (70-110)
[2020-04-05 11:31] VITALS: BP 113/70; PULSE 69; RESP 18; TEMP 37.1; O2SAT 98
--- NOTE | 2020-04-05 11:45 | XRR_ITS ---
PROCEDURE INFORMATION: Exam: XR Left Shoulder Exam date and time: 04/05/2020 11:46 AM Age: 74 years old Clinical indication: Pain; Shoulder; Left; Additional info: Fall with shoulde pain TECHNIQUE: Imaging protocol: XR Left shoulder. Views: 2 or more views. COMPARISON: CR XR shoulder LT min 2V* [id number] 03/25/2020 12:40 PM FINDINGS: Bones/joints: Negative for acute bony abnormality. Soft tissues: Multiple metallic surgical clips seen in the left axillary soft tissues. XR/XR shoulder LT 1V [id number] IMPRESSION: 1. No acute bone abnormality 2. Metallic surgical clips left axillary tissues
[2020-04-05] MEDS: acetaminophen 325 mg Tablet 650 MG PO ×2 (15:46→21:07)
[2020-04-05 16:00] VITALS: BP 125/78; PULSE 66; RESP 18; TEMP 36.9; O2SAT 96
[2020-04-05 16:40] LABS: Glucose Point of Care 141 mg/dL (70-110)
[2020-04-05 19:32] VITALS: BP 122/77; PULSE 68; RESP 16; TEMP 37; O2SAT 95
--- NOTE | 2020-04-05 21:08 | PM.PN ---
Subjective Subjective: Interval history: No acute events overnight.She has not complained of any fresh epiosde of syncope.PT is working with the patient. Vitals and labs have been reviewed. Medications: Reviewed: Yes Vitals/I&O/Wt Last Vital Signs Temp 98.6 F 04/05/20 19:32 Pulse 68 04/05/20 19:32 Resp 16 04/05/20 19:32 BP 122/77 04/05/20 19:32 Pulse Ox 95 04/05/20 19:32 04/05/20 04/05/20 04/05/20 06:59 14:59 22:59 Intake Total 1217.5 / 1217.5 240 / 1457.5 Output Total 700 / 900 400 / 400 Balance -700 / -400 1217.5 / 1217.5 -160 / 1057.5 Weight last 48 hrs Weight 61.235 kg Physical Exam Const: COMMON NORMALS: patient oriented x3 HENMT: COMMON NORMALS: normocephalic, atraumatic, hearing grossly normal bilaterally and external ears normal HEAD & SCALP: normocephalic and atraumatic EXTERNAL EAR: Yes external ears normal Eye: COMMON NORMALS: no scleral icterus GENERAL EYE: appearance normal, both eyes and all related structures Chest: COMMONS NORMALS: normal inspection of the chest and normal palpation of entire chest wall CHEST: Yes Symmetrical chest wall rise Resp: COMMON NORMALS: normal respiratory effort, No retractions, No use of accessory muscles and clear to auscultation bilaterally EFFORT & INSPECTION: Yes symmetric chest movement AUSCULTATION: clear to auscultation bilaterally Cardio: COMMON NORMALS: regular rate, regular rhythm, S1 normal heart sound present, S2 normal heart sound present, No gallops present (Cardio), No murmurs present (Cardio), No rub (Cardio) and Peripheral pulses 2+ throughout RATE: regular rate RHYTHM: regular rhythm HEART SOUNDS: S1 normal heart sound present and S2 normal heart sound present PERIPHERAL PULSES: Peripheral pulses 2+ throughout GI: COMMON NORMALS: Normal to inspection, nondistended, normoactive bowel sounds present, Soft to palpation, non-tender, No hepatosplenomegaly present and no masses AUSCULTATION: Yes normoactive bowel sounds PALPATION: Yes Soft to palpation and Yes No hepatosplenomegaly present RECTAL EXAM: deferred Extremity: COMMON NORMALS: no clubbing, cyanosis or edema and no pedal edema Neuro: COMMON NORMALS: patient oriented x3 Data : 04/07/20 04:30 04/07/20 04:30 A&P Assessment and plan (1) Syncope: Status: Resolved (2) Breast mass, right: Right breast mass: Status post right breast ultrasound-guided biopsy: We will follow-up on the biopsy result Status: Acute (3) JUMANA (acute kidney injury): Current serum creatinine is 1.5 baseline serum creatinine is 1. We will hold Lasix, irbesartan. We will do gentle IV haydration. Status: Resolved (4) HTN (hypertension): Currently normotensive. We will hold on her antihypertensive medications. We will let her be slightly hypertensive. Status: Acute (5) Diastolic heart failure: Currently compensated. We will continue to hold Lasix. Irbesartan. Status: Chronic (6) Diabetes mellitus: Insulin low-dose sliding scale. Monitor fingerstick glucose Status: Acute (7) Anemia: Likely dilutional. Check iron panel. Check reticulocyte count. We will transfuse if hemoglobin below 7. Status: Acute (8) Bone metastasis: Status: Acute Additional A&P Information Syncope/presyncope: Most likely because of polypharmacy. Patient had extensive work-up on previous admission when she was discharged [address] head negative for any acute pathology. 2D echo shows EF of 60% with no regional motion motion abnormality. Carotid Doppler shows bilateral ICA stenosis less than 50%. Check orthostatic. Continue Telemetry. TSH, Vitamin B12, folate levels within normal limits on admission. Hypertension: Goal blood pressure less than 140/90 mmHg. Patient is on multiple antihypertensives at home including Lasix, Ibersartan, Imdur. At present not on any hypertensive. Continue holding antihypertensives for now. Will reintroduce medications accordingly if required. Type 2 diabetes mellitus: Patient states her blood glucose at home sometimes goes below 100 but is never more than 150. Check HbA1c. At home patient is on metformin,, Januvia. Continue insulin sliding scale at low-dose protocol. Will change medications accordingly. JUMANA: Creatinine on admission 1.5. Came down to 1.3 yesterday. Continue to hold lasix and avoid nephrotoxic medications. Continue to monitor BMP. CODE STATUS: Full code DVT prophylaxis: Heparin 5000 every 12h Disposition: Patient symptoms are most likely because of polypharmacy. Patient states she already has home health which comes once a week takes care of medication. Physical therapy evaluation appreciated. Will consult with care coordination to look into possible placement to SNF if possible. Attestations Medical Necessity Statement*: Patient needs to be in hospital for syncope evaluation. Coding Level of Care Code Acute Ammonia Nitrate Operator for Cammie Phillipsd Diagnoses Syncope R55 Breast mass, right N63.10 JUMANA (acute kidney injury) N17.9 HTN (hypertension) I10 Diastolic heart failure I50.30 Diabetes mellitus E11.9 Anemia D64.9 Bone metastasis C79.51
[2020-04-05 21:52] LABS: Glucose Point of Care 94 mg/dL (70-110)
[2020-04-06] VITALS (9 sets, daily range): BP systolic 117–155; BP diastolic 62–89; PULSE 60–86; RESP 15–22; TEMP 36.3–37.1; O2SAT 94–96
[2020-04-06] MEDS: HYDROcodone-acetaminophen 5-325 mg Tablet 1 TAB PO ×3 (00:53→08:19)
[2020-04-06] MEDS: heparin 5,000 unit/mL INJ 1 mL 5000 UNIT SUBCUT ×2 (04:58→17:05)
[2020-04-06 06:28] LABS: Glucose Point of Care 90 mg/dL (70-110)
[2020-04-06] MEDS: pantoprazole DR 40 mg Tablet PO (08:18)
[2020-04-06] MEDS: ropinirole 2 mg Tablet PO ×2 (08:19→17:05)
[2020-04-06] MEDS: levothyroxine 150 mcg Tablet 75 MCG PO (08:19)
--- NOTE | 2020-04-06 08:19 | PC.NURSE ---
Patient resting in bed, easily awakened to voice, oriented X3, confused on the actual day of month but able to answer all other orientation questions, reports pain to left shoulder 10/10, administered norco per physicians orders, see MAR for further details. Discussed plan of care, verbalized understanding.
[2020-04-06] MEDS: sodium chloride 0.9% 1,000 ML 75 ML IV ×2 (08:20→23:14)
--- NOTE | 2020-04-06 10:33 | PC.NURSE ---
Patient confused on this rounding oriented X2. reorientation provided. Call light in reach, side rails up X2 padded.
[2020-04-06 10:39] LABS: Glucose Point of Care 100 mg/dL (70-110)
[2020-04-06] MEDS: bisacodyl 5 mg Tablet 10 MG PO (11:18)
--- NOTE | 2020-04-06 11:20 | PC.NURSE ---
PRN dulcolax given per doctors orders for constipation, see MAR for further details.
--- NOTE | 2020-04-06 16:37 | PM.PN ---
Subjective Subjective: Interval history: No acute events overnight. Hospital course appreciated. On examination sitting at bedside. Denies of having any further nausea or dizziness. Working well with physical therapy. Denies any chest pain or difficulty in breathing. Vitals/I&O/Wt Last Vital Signs Temp 97.4 F L 04/06/20 16:00 Pulse 86 04/06/20 16:00 Resp 22 H 04/06/20 16:00 BP 130/76 04/06/20 16:00 Pulse Ox 96 04/06/20 16:00 04/06/20 04/06/20 04/06/20 06:59 14:59 22:59 Intake Total 1438.75 / 1438.75 Output Total 600 / 1000 400 / 400 Balance -600 / 1638.75 1038.75 / 1038.75 Physical Exam Narrative: EXAM NARRATIVE: General: No acute distress, AO x3, hard of hearing HEENT: PERRLA, pupils bilaterally equal and reactive Chest: Normal vesicular breath sounds, no added sounds, equal good air entry bilaterally CVS: S1-S2 regular, pansystolic murmur at apex 2/6 no tachycardia, no gallops, no rubs Abdomen: Soft, nontender, no organomegaly, bowel sounds present Neuro: No focal deficits, no facial deformity, AO x3, power 5/5 in all limbs Data : 04/05/20 04:24 04/05/20 04:24 A&P Assessment and plan (1) Syncope: Status: Resolved (2) JUMANA (acute kidney injury): Current serum creatinine is 1.5 baseline serum creatinine is 1. We will hold Lasix, irbesartan. We will do gentle IV haydration. Status: Resolved (3) HTN (hypertension): Currently normotensive. We will hold on her antihypertensive medications. We will let her be slightly hypertensive. Status: Acute (4) Diastolic heart failure: Currently compensated. We will continue to hold Lasix. Irbesartan. Status: Chronic (5) Diabetes mellitus: Insulin low-dose sliding scale. Monitor fingerstick glucose Status: Acute (6) Anemia: Likely dilutional. Check iron panel. Check reticulocyte count. We will transfuse if hemoglobin below 7. Status: Acute (7) Breast mass, right: Right breast mass: Status post right breast ultrasound-guided biopsy: We will follow-up on the biopsy result Status: Acute (8) Bone metastasis: Status: Acute Additional A&P Information Syncope/presyncope: Most likely because of polypharmacy. Patient had extensive work-up on previous admission when she was discharged [address] head negative for any acute pathology. 2D echo shows EF of 60% with no regional motion motion abnormality. Carotid Doppler shows bilateral ICA stenosis less than 50%. Check orthostatic. Check VQ scan. Unfortunately cannot do CTA because creatinine is elevated. Check ABG., Check d-dimer. Telemetry. Carbamazepine level on admission 12.6 which is mildly elevated. Will change the dose to 100 mg twice daily. TSH, Vitamin B12, folate levels within normal limits on admission. Hypertension: Goal blood pressure less than 140/90 mmHg. Patient is on multiple antihypertensives at home including Lasix, Ibersartan, Imdur. At present not on any hypertensive. Continue holding antihypertensives for now. Will reintroduce medications accordingly if required. Type 2 diabetes mellitus: Patient states her blood glucose at home sometimes goes below 100 but is never more than 150. Check HbA1c. At home patient is on metformin,, Januvia. Continue insulin sliding scale at low-dose protocol. Will change medications accordingly. JUMANA: Creatinine on admission 1.5. Came down to 1.3 yesterday. Unfortunately no labs today. Patient's creatinine has gone up to 3.8 in February. Medical reconciliation done for nephrotoxic drug. We will continue to monitor. CODE STATUS: Full code DVT prophylaxis: Heparin 5000 every 12h Disposition: Patient symptoms are most likely because of polypharmacy. Patient states she already has home health which comes once a week takes care of medication. Physical therapy evaluation appreciated. Will consult with care coordination to look into possible placement to SNF if possible. Attestations Medical Necessity Statement*: Presyncope, JUMANA. Time Spent in Patient Care: Greater than 35 minutes (>than 50% of time spent in counselling and/or direct pt care on unit). Coding Level of Care Code Acute Cleaning Crew Member for Cammie Bourne Diagnoses Syncope R55 JUMANA (acute kidney injury) N17.9 HTN (hypertension) I10 Diastolic heart failure I50.30 Diabetes mellitus E11.9 Anemia D64.9 Breast mass, right N63.10 Bone metastasis C79.51
[2020-04-06 16:41] LABS: Glucose Point of Care 113 mg/dL (70-110)
[2020-04-06] MEDS: carBAMazepine 200 mg Tablet 100 MG PO (17:05)
[2020-04-06 17:13] LABS: ABG PCO2 33.8 mmHg (35-45); ABG PH Result 7.44 (7.35-7.45); Alveolar-Arterial Oxygen Gradi 2.5 mmHg (5-10); Base Excess ABG -1.1 mmol/L (-2.0-2.0); Blood Gas Allen Test Pos; Blood Gas Operator Identificat GD; Blood Gas Sample Site Radial, right; Blood Gas Sample Type Arterial; Carboxyhemoglobin 1.1 %THgb (0.4-20.1); HCO3 ABG 22.7 mmol/L (22-26); HGB O2 Sat 96.2 % (95-100); Ionized Calcium Level - ABG 1.2 mmol/L (1.1-1.4); Oxygen Device ROOM AIR; Oxygen Saturation ABG 98.2; PO2 ABG 87.7 mmHg (80.0-100.0); Total Hemoglobin 10.8 g/dL (12-16)
[2020-04-06 18:58] LABS: D Dimer 1.07 ug/mIFEU (0-0.59)
[2020-04-06 20:57] LABS: Glucose Point of Care 118 mg/dL (70-110)
[2020-04-07] VITALS: BP 151/74; PULSE 66; RESP 19; TEMP 36.9; O2SAT 95
[2020-04-07] MEDS: HYDROcodone-acetaminophen 5-325 mg Tablet 1 TAB PO (00:51)
[2020-04-07 03:52] VITALS: BP 134/78; BP 139/74; BP 152/79; PULSE 64; PULSE 67; PULSE 70; RESP 17; TEMP 36.7; O2SAT 95
[2020-04-07] MEDS: heparin 5,000 unit/mL INJ 1 mL 5000 UNIT SUBCUT (05:22)
[2020-04-07 05:24] LABS: Basophils % 0.5 %; Eosinophils # 0.6 10^3/uL (0.0-0.8); Eosinophils % 8.8 %; Hematocrit 31.5 % (37.0-47.0); Hemoglobin 9.5 g/dL (11.5-15.3); Lymphocytes # 2.1 10^3/uL (0.8-4.8); Lymphocytes % 32.3 %; Mean Corpuscular HGB Conc 30.2 g/dL (30.0-36.0); Mean Corpuscular Hemoglobin 27.4 pg (28.0-34.0); Mean Corpuscular Volume 90.8 fL (81-99); Monocytes # 0.5 10^3/uL (0.2-0.9); Monocytes % 7.9 %; Neutrophils # 3.33 10^3/uL (1.8-7.7); Neutrophils % 50.2 %; Nucleated Red Blood Cells % 0 %; Platelet Count 251 10^3/cmm (130-400); Red Blood Count 3.47 10^6/uL (4.1-5.3); Red Cell Distribution Width 16.1 % (12.1-15.1); White Blood Count 6.6 10^3/uL (4.0-10.0)
[2020-04-07 05:39] LABS: Alanine Aminotransferase 10 U/L (0-33); Albumin Level 3.5 g/dL (3.5-5.2); Alkaline Phosphatase 86 IU/L (35-105); Aspartate Amino Transferase 19 U/L (0-32); Blood Urea Nitrogen 16 mg/dL (8-23); Calcium 9.2 mg/dL (8.5-10.5); Carbon Dioxide 22 mmol/L (22-29); Chloride 108 mmol/L (98-107); Glucose 126 mg/dL (65-115); Magnesium 1.7 mg/dL (1.7-2.3); Osmolality Calculated 295 mOsm/kg (285-295); Phosphorus 3.5 mg/dL (2.5-4.5); Sodium 141 mmol/L (136-145); Total Bilirubin 0.2 mg/dL (0.15-1.2); Total Protein 5.5 g/dL (6.6-8.7)
[2020-04-07 05:54] LABS: Iron 71 ug/dL (37-145); Percent Saturation 30.4 % (20-50); Total Iron Binding Capacity 233 mcg/dl; Unsaturated Iron Binding 162 ug/dL (112-347)
[2020-04-07 05:58] LABS: Estmated Average Glucose 126
[2020-04-07 06:19] LABS: Glucose Point of Care 117 mg/dL (70-110)
[2020-04-07 07:23] VITALS: BP 167/101; PULSE 63; RESP 18; TEMP 36.6; O2SAT 97
[2020-04-07 10:45] LABS: Glucose Point of Care 143 mg/dL (70-110)
[2020-04-07] MEDS: ropinirole 2 mg Tablet PO (11:59)
[2020-04-07] MEDS: cholecalciferol (vitamin D3) 1,000 unit Tablet 1000 UNIT PO (11:59)
[2020-04-07] MEDS: pantoprazole DR 40 mg Tablet PO (11:59)
[2020-04-07 12:00] VITALS: BP 167/101; PULSE 63; RESP 18; TEMP 36.6; O2SAT 97
[2020-04-07] MEDS: atorvastatin 40 mg Tablet 20 MG PO (12:00)
[2020-04-07] MEDS: levothyroxine 150 mcg Tablet 75 MCG PO (12:01)
[2020-04-07] MEDS: carBAMazepine 200 mg Tablet 100 MG PO (12:02)
--- NOTE | 2020-04-07 12:03 | P.DS_ITS ---
Discharge Providers Date of Admission: 04/06/20 16:43 Date of Discharge: April 07, 2020 Attending Provider at Admission: Jeff Peoples MD Attending Provider at Discharge: Sawyer Barajas MD Primary Care Provider: GAYLE Terrell Diagnoses at Discharge Discharge Diagnosis (1) Syncope: Status: Resolved (2) JUMANA (acute kidney injury): Status: Resolved (3) HTN (hypertension): Status: Acute (4) Diastolic heart failure: Status: Chronic (5) Diabetes mellitus: Status: Acute (6) Anemia: Status: Acute (7) Breast mass, right: Status: Acute (8) Bone metastasis: Status: Acute Reason for Visit Reason for Visit: N/V Hospital Course Hospital Course: 74-year-old lady who is coming in for second admission last 1 week with past medical history of diabetes mellitus, CA left breast status post left breast mastectomy, diastolic heart failure, recently diagnosed with right breast mass status post ultrasound-guided biopsy (report awaited) facet joint disease, HTN, Hyperlipidemia, Osteoarthritis, Restless legs syndrome, Trigeminal neuralgia who presented from home with recurrent falls, She was discharged after extensive work for syncope. During the recent admission, she received, CT head without contrast: Which failed to show any acute intracranial pathology, CT chest without contrast:right axillary lymphadenopathy, multiple noncalcified nodular density in bilateral lungs. Breast ultrasound: Showed large solid mass. 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 Cervical spine CT : No acute cervical spine fracture. 2D echo was done: Which showed normal LVEF: 60%. No RWMA.Carotid Doppler study: Bilateral ICA stenosis less than 50%. There was no abnormality on the monitoring manager during the last admission. Orthostatic vitals were negative. Patient was admitted to the hospital for further work-up of presyncope. It is most likely because of polypharmacy. Orthostatics were checked again and were negative. Ventilation/perfusion scan was done which showed low probability of PE. Patient is on multiple antihypertensives at home and antidiabetic medicatio ns as well. Her both diabetes and antihypertensives were withheld. She states she does check her blood pressure twice or thrice a week and usually the numbers are around 100. She also states she checks her blood sugar frequently and usually fasting numbers are high 90s to low 100s. During hospitalization even after stopping antihypertensives her blood pressures remained stable. For discharge planning extensive discussion was done with the listed next of kin. It was discussed that patient is working well with physical therapy and able to walk with minimal assist to 150 feet and at this point further physical therapy for short-term will not help her much. Though given her advanced dementia along with advanced age she could work well with assisted living placement. Unfortunately patient does not want to be placed to an assisted living for long-term and both the family and patient denied that. Patient is been discharged in medically stable condition with home health on adjusted medications. Patient's next of kin and patient has been explained detail regarding changes in the medications. She is advised to follow-up with her primary care provider within next 1 to 3 days for a blood pressure check. Physical Exam Narrative: EXAM NARRATIVE: General: No acute distress, AO x3, hard of hearing HEENT: PERRLA, pupils bilaterally equal and reactive Chest: Normal vesicular breath sounds, no added sounds, equal good air entry bilaterally CVS: S1-S2 regular, pansystolic murmur at apex 2/6 no tachycardia, no gallops, no rubs Abdomen: Soft, nontender, no organomegaly, bowel sounds present Neuro: No focal deficits, no facial deformity, AO x3, power 5/5 in all limbs Discharge Data Data Completed and Pending: Completed Studies During Hospitalization Category Date Time Status CT head wo con* [id number] Stat Cat Scan 04/04/20 12:35 Completed XR chest 1V faustino ble [id number] Stat Exams 04/04/20 14:41 Completed XR shoulder LT 1V [id number] Stat Exams 04/05/20 11:45 Completed Pending at discharge Category Date Time Status NM pul vent and p erfus* [id number] Routi ne Nuc Med 04/07/20 16:09 Taken Labs from last 24 hours 04/07/20 04/07/20 04/07/20 10:27 06:06 04:30 WBC RBC Hgb Hct MCV MCH MCHC RDW Plt Count MPV Neut % (Auto) Lymph % (Auto) Dixon % (Auto) Eos % (Auto) Baso % (Auto) Reticulocyte % (Au to) Neut # (Auto) Lymph # (Auto) Dixon # (Auto) Eos # (Auto) Baso # (Auto) Nucleated RBC % (a uto) Nucleated RBCs # D-Dimer Specimen Type Sample Site ABG pH ABG pCO2 ABG pO2 ABG HCO3 ABG O2 Saturation ABG Base Excess Daryn Test A-a O2 Gradient Hematocrit Hgb O2 Saturation Carboxyhemoglobin Methemoglobin Total Hemoglobin Sodium Potassium Glucose Ionized Calcium O2 Delivery Device Hris Manager ID Chloride Carbon Dioxide Anion Gap BUN Creatinine GFR Calculation POC Glucose 143 117 Estimat Average Gl ucose Hemoglobin A1c Calculated Osmolal ity Calcium Phosphorus Magnesium Iron 71 TIBC 233 % Saturation 30.4 Unsat Iron Binding 162 Total Bilirubin AST ALT Alkaline Phosphata se Total Protein Albumin Globulin 04/07/20 04/07/20 04/07/20 04:30 04:30 04:30 WBC RBC Hgb Hct MCV MCH MCHC RDW Plt Count MPV Neut % (Auto) Lymph % (Auto) Dixon % (Auto) Eos % (Auto) Baso % (Auto) Reticulocyte % (Au to) 0.7200 Neut # (Auto) Lymph # (Auto) Dixon # (Auto) Eos # (Auto) Baso # (Auto) Nucleated RBC % (a uto) Nucleated RBCs # D-Dimer Specimen Type Sample Site ABG pH ABG pCO2 ABG pO2 ABG HCO3 ABG O2 Saturation ABG Base Excess Daryn Test A-a O2 Gradient Hematocrit Hgb O2 Saturation Carboxyhemoglobin Methemoglobin Total Hemoglobin Sodium 141 Potassium 4.0 Glucose 126 H Ionized Calcium O2 Delivery Device Hris Manager ID Chloride 108 H Carbon Dioxide 22 Anion Gap 15.0 BUN 16 Creatinine 1.1 H GFR Calculation Not Reportable POC Glucose Estimat Average Gl ucose 126 Hemoglobin A1c 6.0 Calculated Osmolal ity 295 Calcium 9.2 Phosphorus 3.5 Magnesium 1.7 Iron TIBC % Saturation Unsat Iron Binding Total Bilirubin 0.2 AST 19 ALT 10 Alkaline Phosphata se 86 Total Protein 5.5 L Albumin 3.5 Globulin 2.0 04/07/20 04/06/20 04/06/20 04:30 20:48 17:45 WBC 6.6 RBC 3.47 L Hgb 9.5 L Hct 31.5 L MCV 90.8 MCH 27.4 L MCHC 30.2 RDW 16.1 H Plt Count 251 MPV 10.0 Neut % (Auto) 50.2 Lymph % (Auto) 32.3 Dixon % (Auto) 7.9 Eos % (Auto) 8.8 Baso % (Auto) 0.5 Reticulocyte % (Au to) Neut # (Auto) 3.33 Lymph # (Auto) 2.1 Dixon # (Auto) 0.5 Eos # (Auto) 0.6 Baso # (Auto) 0.0 Nucleated RBC % (a uto) 0 Nucleated RBCs # 0.0 D-Dimer 1.07 H Specimen Type Sample Site ABG pH ABG pCO2 ABG pO2 ABG HCO3 ABG O2 Saturation ABG Base Excess Daryn Test A-a O2 Gradient Hematocrit Hgb O2 Saturation Carboxyhemoglobin Methemoglobin Total Hemoglobin Sodium Potassium Glucose Ionized Calcium O2 Delivery Device Hris Manager ID Chloride Carbon Dioxide Anion Gap BUN Creatinine GFR Calculation POC Glucose 118 Estimat Average Gl ucose Hemoglobin A1c Calculated Osmolal ity Calcium Phosphorus Magnesium Iron TIBC % Saturation Unsat Iron Binding Total Bilirubin AST ALT Alkaline Phosphata se Total Protein Albumin Globulin 04/06/20 04/06/20 16:58 16:37 WBC RBC Hgb Hct MCV MCH MCHC RDW Plt Count MPV Neut % (Auto) Lymph % (Auto) Dixon % (Auto) Eos % (Auto) Baso % (Auto) Reticulocyte % (Au to) Neut # (Auto) Lymph # (Auto) Dixon # (Auto) Eos # (Auto) Baso # (Auto) Nucleated RBC % (a uto) Nucleated RBCs # D-Dimer Specimen Type Arterial Sample Site Radial, right ABG pH 7.44 ABG pCO2 33.8 L ABG pO2 87.7 ABG HCO3 22.7 ABG O2 Saturation 98.2 ABG Base Excess -1.1 Daryn Test Pos A-a O2 Gradient 2.5 L Hematocrit 33.0 L Hgb O2 Saturation 96.2 Carboxyhemoglobin 1.1 Methemoglobin 1.0 Total Hemoglobin 10.8 L Sodium 146.0 H Potassium 4.0 Glucose 109.0 Ionized Calcium 1.2 O2 Delivery Device Room air Hris Manager ID Gd Chloride Carbon Dioxide Anion Gap BUN Creatinine GFR Calculation POC Glucose 113 Estimat Average Gl ucose Hemoglobin A1c Calculated Osmolal ity Calcium Phosphorus Magnesium Iron TIBC % Saturation Unsat Iron Binding Total Bilirubin AST ALT Alkaline Phosphata se Total Protein Albumin Globulin Vitals: Last Vital Signs Temp 97.8 F 04/07/20 07:23 Pulse 63 04/07/20 07:23 Resp 18 04/07/20 07:23 BP 167/101 04/07/20 07:23 Pulse Ox 97 04/07/20 07:23 Discharge Plan Discharge Patient Disposition: Home Health Service Condition: Stable Prescriptions: Continued cholecalciferol (vitamin D3) 1,000 unit capsule 1,000 unit PO DAILY RF: 0 omeprazole 40 mg capsule,delayed release(DR/EC) 40 mg PO BID RF: 0 levothyroxine 75 mcg capsule 75 mcg PO DAILY RF: 0 simvastatin 20 mg tablet 20 mg PO DAILY RF: 0 ropinirole 2 mg tablet 2 mg PO BID PRN (Reason: RESTLESS LEG SYNDROME) RF: 0 rivastigmine tartrate 3 mg capsule 3 mg PO BID Qty: 180 RF: 1 zonisamide [Zonegran] 25 mg capsule 25 mg PO Q12H Qty: 60 RF: 0 ondansetron HCl [Zofran] 4 mg tablet 4 mg PO Q6H PRN (Reason: nausea and vomiting) Qty: 15 RF: 0 metformin 500 mg Tablet Extended Release 24 Hr 1,000 mg PO DAILY RF: 0 citalopram [Celexa] 10 mg tablet 10 mg PO DAILY RF: 0 magnesium oxide 400 mg magnesium Tablet 400 mg PO DAILY RF: 0 Changed carbamazepine 200 mg Tablet 100 mg PO BID Qty: 0 RF: 0 irbesartan 150 mg Tablet 75 mg PO DAILY Qty: 0 RF: 0 Discontinued furosemide 40 mg tablet 40 mg PO BID RF: 0 Januvia 100 mg tablet 100 mg PO DAILY RF: 0 Bystolic 10 mg tablet 10 mg PO DAILY RF: 0 potassium chloride [Klor-Con 10] 10 mEq tablet extended release 10 meq PO DAILY RF: 0 isosorbide mononitrate 30 mg tablet extended release 24 hr 30 mg PO DAILY Qty: 30 RF: 4 Discharge Orders: Discharge Order (Routine); Ordered 04/07/20 Ordered By: Sawyer Barajas Referrals: [facility] ([facility]) [Outside] David Chan FNP-C [Primary Care Provider] - 04/10/20 9:00 am Roberth Saenz MD [Physician] - 7-10 days Discharge Diet: Cardiac and Low Salt Discharge Activity: Resume usual activity Patient Instructions: Syncope, Acute Kidney Injury (GEN), Low Sodium Diet (GEN) Activity Restrictions/Additional Instructions: Follow-up with your primary care provider within next 1 to 3 days for blood pressure check. Multiple of her antihypertensive and diabetes medications have been stopped. You are not supposed to take Bystolic, furosemide, Imdur, Januvia. Discharge Attestations Time Spent in Discharge Care*: greater than 30 min Specific Discharge Activities: Specific discharge activities: educating patient, educating and/or supporting family/caregiver, discussing with case packer and sealer/social workers/dc planners, documenting/other paperwork and evaluating patient/reviewing data Status at Discharge: Cognitive status at discharge: mildly impaired cognition , Behavioral status at discharge: cooperative , Functional status at discharge: uses cane/walker Overall status at discharge: patient is back to baseline Quality Metrics Clinical Quality Measures During this hospital stay, did patient experience: None Coding Level of Care Code Acute Legal Director for Cammie Fwd Diagnoses Syncope R55 JUMANA (acute kidney injury) N17.9 HTN (hypertension) I10 Diastolic heart failure I50.30 Diabetes mellitus E11.9 Anemia D64.9 Breast mass, right N63.10 Bone metastasis C79.51
--- NOTE | 2020-04-07 16:09 | NM_ITS ---
WS: [id number] NUCLEAR MEDICINE VENTILATION/PERFUSION LUNG SCAN HISTORY: Short of breath and pulmonary embolism. COMPARISON: 04/04/2020 TECHNIQUE: Ventilation: 30.0 mCi of Technetium 99 DTPA aerosol inhaled. Perfusion: 5.1 mCi of technetium 99m MAA IV. Central deposition of radionuclide on the ventilatory portion. Normal distribution of isotope on the perfusion examination. There are no matched or unmatched defects. NM/NM pul vent and perfus* [id number] IMPRESSION: Low probability pulmonary embolism.
[2020-04-07 16:19] VITALS: BP 145/86; PULSE 63; RESP 18; TEMP 36.6; O2SAT 97
== END 2020-04-07 12:55 | disposition home health service (06) | DRG 312 ==
LOC: ER 12:34 → MEDSURG 17:21
PROVIDERS: Admitting Provider Internal Medicine; Emergency Provider Emergency Medicine; PCP Nurse Practitioner; Visit Provider Student in an Organized Health Care Education/Training Program
DX: R55 Syncope and collapse (principal); C79.51 Secondary malignant neoplasm of bone; I50.32 Chronic diastolic (congestive) heart failure; F33.9 Major depressive disorder, recurrent, unspecified; N17.9 Acute kidney failure, unspecified; E11.9 Type 2 diabetes mellitus without complications; C50.912 Malignant neoplasm of unspecified site of left female breast; Z90.12 Acquired absence of left breast and nipple; I11.0 Hypertensive heart disease with heart failure; M47.899 Other spondylosis, site unspecified; E78.5 Hyperlipidemia, unspecified; M19.90 Unspecified osteoarthritis, unspecified site; G25.81 Restless legs syndrome; G50.0 Trigeminal neuralgia; F03.90 Unspecified dementia, unspecified severity, without behavioral disturbance, psychotic disturbance, mood disturbance, and anxiety; Z97.4 Presence of external hearing-aid; Z96.653 Presence of artificial knee joint, bilateral; N63.10 Unspecified lump in the right breast, unspecified quadrant; R26.89 Other abnormalities of gait and mobility; D64.9 Anemia, unspecified; Z79.84 Long term (current) use of oral hypoglycemic drugs; M25.512 Pain in left shoulder
CPT/HCPCS: 12345; 36415; 36416; 36600; 70450; 71045; 73020; 78014; 80051; 80053; 80156; 81001; 82550; 82810; 82962; 83036; 83540; 83550; 83690; 83735; 83880; 83986; 84100; 84484; 85025; 85045; 85378; 93005; 96372; 97110; 97116; 97161; 97165; 97530; 97535; 99284; A9540; A9567; G0378; J1644; J1815; J2060; J2405; J3490; J7030; J7040

== ENCOUNTER 2020-04-13 07:31 | Outpatient (CLI) | payer MEDICARE, MEDICAID, SELFPAY ==
--- NOTE | 2020-04-13 18:27 | ONC CON_ITS ---
Dr. Camara New Patient Note Patient: Vi Hickey Unit #: [id number]: [id number] Dicatated By: Regan Camara M.D.Date of Visit: Apr 13, 2020 Onc MED New Patient/Consult Referring Physician: Dr. Stephanie García Chief Complaint: Breast cancer. History of Present Illness: This is a 74-year-old woman with newly diagnosed metastatic breast cancer which is ER positive/MN negative and HER-2/la negative. This patient has a prior history of left breast cancer, for which she underwent left mastectomy somewhere in the range of 15 to 20 years ago. I do not have those records available. She apparently did not receive any additional treatment. She has multiple medical illnesses including hypertension, hyperlipidemia, type 2 diabetes, hypothyroidism, GERD, restless leg syndrome, trigeminal neuralgia, degenerative arthritis/degenerative disease of the spine, and anxiety/depression. She also has a diagnosis of dementia. On 03/25/2020 she was admitted to the hospital after she had fallen in her bathroom the prior evening and apparently arielle on her floor all night. It was suspected to have been due to syncope. She had evidence of rhabdomyolysis and acute renal injury. There were no acute findings on noncontrast CT scans of the head and cervical spine. CT abdomen/pelvis, though, showed evidence of osteolytic bone lesions involving the L2 vertebral body, right ilium, and right eighth rib. Chest CT showed evidence of prior left mastectomy with multiple nodular densities in the right breast and associated right axillary adenopathy. There are multiple noncalcified nodular densities in the lungs, the largest measuring 7 mm. Ultrasound of the right breast showed a lobulated mass in the upper inner quadrant measuring 2.6 x 2.1 x 2.4 cm. Multiple hypoechoic lesions were noted in the right axilla, the largest measuring 2 to 3 cm in diameter. These were felt to most likely represent enlarged necrotic lymph nodes. Ultrasound-guided core needle biopsy of the right breast on 03/31/2020 showed a metaplastic carcinoma with chondroid, myxoid, and osteoid differentiation, grade 3. The tumor was ER positive at 100% and MN negative at less than 1%. It was negative for overexpression of HER-2/la, 1+ by IHC and amplification ratio by FISH of 1.0 with 2.4 HER-2 copies/cell. On 04/04/2020 she was readmitted to the hospital after experiencing transient loss of consciousness at home. A specific cause for that was not determined. She is seen now for further management of the breast cancer. According to her son, she had really been doing pretty well generally until recently, when she started having falls. She does complain that she tires out, but she still does light work at home. ECOG score is 1. Her appetite is pretty good. Her weight appears to be stable. She does not have fever or night sweats. She has a little bit of cough. She does not complain of shortness of breath or chest pain. She has complained that her stomach feels queasy. She has constipation off and on. Bladder function is been okay. Her [id number] indicates that she complains of having back pain and she is complaining that her shoulders and arms are sore. She has had a weird headache on the right side and she does complain of dizziness. She has restless leg syndrome. She has no numbness/paresthesia or other focal neurologic symptoms. Past Medical History: Her medical history includes breast cancer, degenerative arthritis, degenerative disease of the spine, dementia, diastolic heart failure, hyperlipidemia, hypertension, restless leg syndrome, trigeminal neuralgia, and type II diabetes. Past Surgical History: Her surgical/procedural history includes hysterectomy, left total knee arthroplasty, left total mastectomy with delayed reconstruction, lumbar laminectomy, right rotator cuff repair, right total knee arthroplasty, and ventral hernia repair with mesh. Medications: carBAMazepine 1.5 Tablet (of 200 mg) Oral b.i.d., Citalopram Hydrobromide 1 Tablet (of 10 mg) Oral every am, Irbesartan 0.5 Tablet (of 150 mg) Oral daily, Levothyroxine Sodium 1 Tablet (of 75 mcg) Oral daily, Melatonin 1 Tablet (of 2.5 mg) Oral at bedtime, metFORMIN HCl 2 Tablet (of 500 mg) Oral daily, Ondansetron HCl 1 Tablet (of 4 mg) Oral q 6 hours PRN, Requip 1 Tablet (of 2 mg) Oral b.i.d., Rivastigmine Tartrate 1 Capsule (of 3 mg) Oral daily, Simvastatin 1 Tablet (of 20 mg) Oral daily Allergies: NAYELI Inhibitors, Penicillins, and Sulfa Antibiotics. Social History: Ms. Hickey is . She is a non-smoker. She does not drink alcohol. Family History: Father had diabetes. He at age 75, specific cause unknown to the patient. Mother with heart disease at age 58. One sister is , cause also unknown to the patient. One brother and one sister are still living. Review Of Symptoms: Constitutional - She tires out easily. She is still doing light work. Appetite is pretty good. Weight is stable. She has no fever, night sweats, or hot flashes. ECOG score is 1, Eyes - No change in vision, ENMT - She is hard of hearing. No tinnitus. No sinus congestion/drainage. No mouth sores. No sore throat or difficulty swallowing, Hematologic/Lymphatic - She has easy bruising. She has been anemic, Respiratory - No shortness of breath. She has a little bit of cough. No pleuritic pain or hemoptysis, Cardiovascular - No angina pain. No palpitations, Gastrointestinal - She has been having nausea. No acid reflux. She has constipation off and on. No blood in the stool or black stools, Genitourinary (F) - No dysuria or hematuria. No urinary frequency. No urgency or incontinence, Musculoskeletal - She has been having back pain and she also complains that her arms are sore, Integumentary - No skin rash or other skin changes, Neurologic - She has been having headache on the right side. She is having difficulty with dizziness and balance. She has restless leg syndrome. No numbness or tingling or other focal neurologic symptoms, Psychiatric - She has anxiety/depression, and she reportedly has dementia. Vital Signs: Performed on Apr 13, 2020 08:13: 7, 29.59, 1.75 sq.m, 62.00 in, 98 %, 72 /min, 22 /min, 166/96 mm(hg) (HIGH), 97.8 F (LOW), and 161.8 lbs (HIGH). Physical Examination: Constitutional - She appears somewhat weak generally, Eyes - Sclerae nonicteric. Conjunctivae clear, ENMT - No lesions noted in the oral cavity, Neck - No mass or thyromegaly, Hematologic/Lymphatic - No cervical or clavicular adenopathy, Respiratory - Lungs are clear with good air movement bilaterally, Cardiovascular - Heart rhythm is regular. There is I/ systolic murmur. There is no gallop or rub noted, Breasts - There is a mass palpable in the superior aspect of the right breast, measuring in the range of 3 to 4 cm. There is a movable, low right axillary lymph node measuring approximately 2 cm. There are no lesions noted in the left chest wall/breast reconstruction. There is no adenopathy in the left axilla, Abdomen - Soft and non-tender. Liver and spleen are not enlarged. There is no abdominal mass or ascites noted and there is no inguinal adenopathy, Back/Spine - No spine or CVA tenderness noted, Extremities - Slight edema. Dorsalis pedis pulses are palpable bilaterally, Integumentary - No rashes. No suspicious skin lesions noted, Neurologic - No focal neurologic deficits noted. Impression: 1. 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 2. She has had multiple recent falls and suspected syncope. 3. She has a prior history of left breast cancer for which she underwent left mastectomy somewhere in the range of 15 to 20 years ago. Those records are not available. She apparently did not receive any additional treatment. Her other medical illnesses include: 4. Hypertension. 5. Hyperlipidemia. 6. Type II diabetes. 7. Diastolic congestive heart failure. 8. Hypothyroidism. 9. GERD. 10. Restless leg syndrome. 11. Degenerative arthritis/degenerative disease of the spine. 12. Trigeminal neuralgia. 13. Anxiety/depression. 12. Dementia. Plan: The findings on the imaging studies and the pathology results were reviewed with the patient and her son. We discussed the clinical implications. She has some metaplastic carcinoma of the right breast which by clinical evaluation appears to be both locally advanced and metastatic. The tumor is ER positive/MN negative and HER-2/la negative. She is advised that this is incurable cancer, but that it is potentially treatable. In the setting of hormone receptor positive metastatic disease, she will begin a course of treatment with letrozole in combination with palbociclib, subject to verification of insurance coverage. This will be administered at the standard dosages of letrozole 2.5 mg daily and palbociclib 125 mg daily on a 21/28-day schedule. She also will begin monthly denosumab injections for the metastatic bone involvement. In the meantime, I will complete her staging evaluation with PET/CT and head MRI. Signed By: Regan Camara M.D. <<Signature on File>>
== END 2020-04-13 07:32 | disposition home or self-care (01) ==
LOC: ONCMED 07:33
PROVIDERS: PCP Family Medicine; Visit Provider Internal Medicine Medical Oncology
DX: C50.811 Malignant neoplasm of overlapping sites of right female breast (principal); Z17.0 Estrogen receptor positive status [ER+]; C79.51 Secondary malignant neoplasm of bone; I10 Essential (primary) hypertension; E78.5 Hyperlipidemia, unspecified; E11.9 Type 2 diabetes mellitus without complications; I50.30 Unspecified diastolic (congestive) heart failure; E03.9 Hypothyroidism, unspecified; K21.9 Gastro-esophageal reflux disease without esophagitis; G25.81 Restless legs syndrome; M47.9 Spondylosis, unspecified; G50.0 Trigeminal neuralgia; F41.9 Anxiety disorder, unspecified; F32.9 Major depressive disorder, single episode, unspecified; F03.90 Unspecified dementia, unspecified severity, without behavioral disturbance, psychotic disturbance, mood disturbance, and anxiety
CPT/HCPCS: 99205

== ENCOUNTER 2020-04-16 12:33 | Outpatient (CLI) | payer MEDICARE, MEDICAID, SELFPAY ==
--- NOTE | 2020-04-16 12:49 | XR_ITS ---
WS: [id number] Left arm and humerus, 2 views, 04/16/2020 Clinical Data: BREAST CANCER/PAIN IN SHOULDERS ARMS Comparison: None. Findings: No fractures or dislocations are seen. The shaft of the humerus is intact. No metastatic disease is seen. There are clips in the left axilla from surgery. XR/[place] [id number] Impression: Negative left arm and humerus.
--- NOTE | 2020-04-16 12:49 | XR_ITS ---
WS: [id number] Right arm and humerus, 2 views, 04/16/2020 Clinical Data: BREAST CANCER/PAIN IN SHOULDERS ARMS Comparison: None. Findings: No fractures or dislocations are seen. The shaft of the humerus is intact. Osteoarthritic change of the medial aspect of the right humeral head as it articulates with the glenoid fossa is seen. There i s resection of the tip of the right clavicle. No evidence of metastatic disease is seen. The soft tis sues are normal. XR/[place] [id number] Impression: Negative right arm and humerus.
--- NOTE | 2020-04-16 12:49 | XR_ITS ---
WS: [id number] Left shoulder, 04/16/2020 Clinical Data: BREAST CANCER/PAIN IN SHOULDERS ARMS Comparison: Left shoulder, 04/05/2020. Findings: No fractures or dislocations are seen. The AC joint shows mild osteoarthritic change. The adjacent le ft clavicle, left scapula and ribs are normal. The soft tissues are unremarkable. There are clips in the left axilla from surgery. There is a wire overlying the medial left clavicle w hich is probably on the patient's skin. XR/XR shoulder LT min 2V* [id number] Impression: Negative left shoulder.
--- NOTE | 2020-04-16 12:49 | XR_ITS ---
WS: [id number] Right shoulder, 3 views, 04/16/2020 Clinical Data: BREAST CANCER/PAIN IN SHOULDERS ARMS Comparison: Right shoulder, 09/14/2017. Findings: There is resection of the distal portion of the right clavicle unchanged. No fractures or dislocations are seen. The AC joint is normal. The adjacent , right scapula and ribs are normal. The soft tissues are unremarkable. There is osteoarthritic change of the right humeral head with spurring medially as it articulates wit h the lambdoid fossa. There is erosion of the undersurface of the right acromium unchanged. There is a small metal wire which is probably on the patient's skin overlapping the medial aspect of the right clavicle. XR/XR shoulder RT min 2V* [id number] Impression: 1. Negative for new fracture. 2. No change in resection of distal tip of right clavicle and osteoarthritic ch robert of the right shoulder.
== END 2020-04-16 12:34 | disposition home or self-care (01) ==
PROVIDERS: PCP Family Medicine; Visit Provider Internal Medicine Medical Oncology
DX: C50.811 Malignant neoplasm of overlapping sites of right female breast (principal); M25.511 Pain in right shoulder; M25.512 Pain in left shoulder
CPT/HCPCS: 73030; 73060

== ENCOUNTER 2020-04-22 11:30 | Outpatient (CLI) | payer MEDICARE, MEDICAID, SELFPAY ==
--- NOTE | 2020-04-22 11:36 | MR_ITS ---
WS: [id number] MRI BRAIN WITH AND WITHOUT CONTRAST HISTORY: BREAST CANCER;HEADACHE COMPARISON: CT head 04/04/2020 TECHNIQUE: Multiplanar imaging performed through the brain with Prohance 17 ml's IV. No acute infarcts are seen. [place]-white matter differentiation is well preserved. There are numerous T 2 and FLAIR signal hyperintensities scattered throughout the white matter. Most typical distribution for microvascular ischemic disease. No susceptibility artifacts or prior lacunar infarcts. Ventricles and extra-axial spaces are normal. Clivus and pituitary gland are normal. Visualized posterior fossa and brainstem are also normal. Postcontrast images are negative for masses or vascular malformations. Dural venous sinuses are normal. Paranasal sinuses: Mild mucoperiosteal thickening throughout the sinus cavities. No air-fluid levels. Mastoid air cells: Normal. Calvarium and scalp: Normal. MR/MR head wo/w con [id number] IMPRESSION: 1. No evidence for metastatic disease to the brain or enhancing mass. 2. Mild chronic microvascular ischemic disease. 3. Mild mucoperiosteal thickening throughout the sinus cavities.
== END 2020-04-22 11:31 | disposition home or self-care (01) ==
LOC: RADSHAW 11:35
PROVIDERS: PCP Family Medicine; Visit Provider Internal Medicine Medical Oncology
DX: C50.811 Malignant neoplasm of overlapping sites of right female breast (principal); R51.9 Headache, unspecified; I67.82 Cerebral ischemia
CPT/HCPCS: 70553; A9579

== ENCOUNTER 2020-05-06 08:45 | Outpatient (CLI) | payer MEDICARE, MEDICAID, SELFPAY ==
[2020-05-06 13:52] LABS: Basophils % 0.2 %; Eosinophils % 0.1 %; Hematocrit 35.1 % (37.0-47.0); Hemoglobin 10.2 g/dL (11.5-15.3); Lymphocytes # 1.6 10^3/uL (0.8-4.8); Lymphocytes % 14.7 %; Mean Corpuscular HGB Conc 29.1 g/dL (30.0-36.0); Mean Corpuscular Hemoglobin 27.9 pg (28.0-34.0); Mean Corpuscular Volume 95.9 fL (81-99); Mean Platelet Volume 10.5 fL (7.4-10.4); Monocytes # 0.6 10^3/uL (0.2-0.9); Neutrophils # 8.16 10^3/uL (1.8-7.7); Neutrophils % 76.7 %; Nucleated Red Blood Cells % 0 %; Platelet Count 246 10^3/cmm (130-400); Red Blood Count 3.66 10^6/uL (4.1-5.3); Red Cell Distribution Width 18.1 % (12.1-15.1); White Blood Count 10.6 10^3/uL (4.0-10.0)
[2020-05-06 14:39] LABS: Alanine Aminotransferase 23 U/L (0-33); Albumin Level 4.1 g/dL (3.5-5.2); Alkaline Phosphatase 92 IU/L (35-105); Anion Gap 14.4 (5-19); Aspartate Amino Transferase 15 U/L (0-32); Blood Urea Nitrogen 30 mg/dL (8-23); Calcium 8.9 mg/dL (8.5-10.5); Carbon Dioxide 29 mmol/L (22-29); Chloride 98 mmol/L (98-107); Glucose 262 mg/dL (65-115); Osmolality Calculated 299 mOsm/kg (285-295); Potassium 4.4 mmol/L (3.5-5.1); Sodium 137 mmol/L (136-145); Total Bilirubin 0.3 mg/dL (0.15-1.2); Total Protein 6.1 g/dL (6.6-8.7)
== END 2020-05-06 08:46 | disposition home or self-care (01) ==
LOC: ONCMED 14:26
PROVIDERS: PCP Family Medicine; Visit Provider Internal Medicine Medical Oncology
DX: C50.811 Malignant neoplasm of overlapping sites of right female breast (principal); C79.51 Secondary malignant neoplasm of bone; Z17.0 Estrogen receptor positive status [ER+]; Z51.81 Encounter for therapeutic drug level monitoring; Z79.899 Other long term (current) drug therapy
CPT/HCPCS: 80053; 85025

== ENCOUNTER 2020-05-07 05:55 | Outpatient (CLI) | payer MEDICARE, MEDICAID, SELFPAY ==
[2020-05-07] MEDS: pneumococcal (23 valent) SDV 0.5 mL IM (15:45)
[2020-05-07] MEDS: denosumab 120 mg SDV SUBCUT (16:03)
--- NOTE | 2020-05-15 11:27 | ONC FU_ITS ---
[facility] Patient Note Patient: Vi Hickey Unit #: [id number]: [id number] Dictated By: Willa HarrellDate of Visit: May 07, 2020 Onc MED Follow-Up/Prog Note Chief Complaint: Breast cancer. History of Present Illness: Ms Hickey is a 74-year-old woman with newly diagnosed metastatic breast cancer which is ER positive/WV negative and HER-2/la negative. Ms Hickey has a prior history of left breast cancer, for which she underwent left mastectomy somewhere in the range of 15 to 20 years ago. We do not have those records available. She apparently did not receive any additional treatment. She has multiple medical illnesses including hypertension, hyperlipidemia, type 2 diabetes, hypothyroidism, GERD, restless leg syndrome, trigeminal neuralgia, degenerative arthritis/degenerative disease of the spine, and anxiety/depression. She also has a diagnosis of dementia. On 03/25/2020 she was admitted to the hospital after she had fallen in her bathroom the prior evening and apparently arielle on her floor all night. It was suspected to have been due to syncope. She had evidence of rhabdomyolysis and acute renal injury. There were no acute findings on noncontrast CT scans of the head and cervical spine. CT abdomen/pelvis, though, showed evidence of osteolytic bone lesions involving the L2 vertebral body, right ilium, and right eighth rib. Chest CT showed evidence of prior left mastectomy with multiple nodular densities in the right breast and associated right axillary adenopathy. There are multiple noncalcified nodular densities in the lungs, the largest measuring 7 mm. Ultrasound of the right breast showed a lobulated mass in the upper inner quadrant measuring 2.6 x 2.1 x 2.4 cm. Multiple hypoechoic lesions were noted in the right axilla, the largest measuring 2 to 3 cm in diameter. These were felt to most likely represent enlarged necrotic lymph nodes. Ultrasound-guided core needle biopsy of the right breast on 03/31/2020 showed a metaplastic carcinoma with chondroid, myxoid, and osteoid differentiation, grade 3. The tumor was ER positive at 100% and W[place] negative at less than 1%. It was negative for overexpression of HER-2/la, 1+ by IHC and amplification ratio by FISH of 1.0 with 2.4 HER-2 copies/cell. On 04/04/2020 she was readmitted to the hospital after experiencing transient loss of consciousness at home. A specific cause for that was not determined. She was seen by Dr Camara for further management of the breast cancer. She had MRI of the brain on 04/22/2020 which reported no evidence of metastatic disease or enhancing masses. There was mild chronic microvascular ischemic disease and mild mucoperiosteal thickening throughout the sinus cavities. PET/CT from 04/27/2020 at [facility] reported a metabolic activity associated with a 2.2 x 3.1 cm right breast mass with an SUV of 7.3 there are multiple metabolic delay active right axillary lymph nodes along with an osseous metastatic deposit in the right eighth rib at the costovertebral junction also diffusely at the L2 vertebral body. Mrs. Hickey has been offered treatment with palbociclib, letrozole and Xgeva. She is here today for her first cycle. She has no new concerns today. She denies any fever or chills. She has had no known Covid exposure or recent testing. She states her breathing is stable as always. She denies any chest pain or palpitations. She has had no new bone pain. She denies any diarrhea or constipation. Her bladder is normal for her. Her ECOG is 1. Past Medical History: Degenerative arthritis Degenerative disease of the spine Dementia Diastolic heart failure History of left breast cancer Hyperlipidemia Hypertension Restless leg syndrome Trigeminal neuralgia Type II diabetes Past Surgical History: Hysterectomy Left total knee arthroplasty Left total mastectomy with delayed reconstruction Lumbar laminectomy Right rotator cuff repair Right total knee arthroplasty Ventral hernia repair with mesh Influenza vaccine in 2019 Pneumococcal vaccine in 2019 Allergies: NAYELI Inhibitors, Penicillins, and Sulfa Antibiotics. Medications: carBAMazepine 1.5 Tablet (of 200 mg) Oral b.i.d. Citalopram Hydrobromide 1 Tablet (of 10 mg) Oral every am Irbesartan 0.5 Tablet (of 150 mg) Oral daily Levothyroxine Sodium 1 Tablet (of 75 mcg) Oral daily Melatonin 1 Tablet (of 2.5 mg) Oral at bedtime metFORMIN HCl 2 Tablet (of 500 mg) Oral daily Ondansetron HCl 1 Tablet (of 4 mg) Oral q 8 hours PRN Requip 1 Tablet (of 2 mg) Oral b.i.d. Rivastigmine Tartrate 1 Capsule (of 3 mg) Oral daily Simvastatin 1 Tablet (of 20 mg) Oral daily Family History: Ms. Hickey's mother at age 58: heart attack. Ms. Hickey's father at age 75: hypertension. Father had diabetes. He at age 75, specific cause unknown to the patient. Mother with heart disease at age 58. One sister is , cause also unknown to the patient. One brother and one sister are still living. Social History: Ms. Hickey is . Ms. Hickey has never smoked. She has no history of drinking. She is a non-smoker. She does not drink alcohol. Review Of Symptoms: Constitutional Denies fevers, chills, night sweats, excessive fatigue or weight loss. Allergic/Immunologic No reactions. Eyes Denies significant visual changes. No diplopia. No amaurosis. ENMT Denies changes in hearing, sore throat, mouth sores, difficulty or changes in swallowing ability, and/or sinus drainage. Endocrine No diabetes, thyroid disease or hormone replacement. Denies hot flashes or night sweats. Hematologic/Lymphatic Denies easy bruising or bleeding. The patient denies any tender or palpable lymph nodes. Breasts Respiratory Some dyspnea on exertion with mild to moderate activity but denies chest pain, cough or hemoptysis. Denies orthopnea. Cardiovascular Denies anginal chest pain, palpitations or orthopnea. Gastrointestinal Denies nausea, vomiting, diarrhea, GI bleeding, or constipation. Denies change in bowel habits and/or stool color, no heartburn or early satiety. Genitourinary (F) No hematuria, hesitancy, incontinence, vaginal bleeding, discharge or other problems with urination. Musculoskeletal Denies joint pain, swelling or redness. No decreased range of motion. Integumentary Denies chronic rashes, inflammation, ulcerations or skin changes. Neurologic Denies headache, blurred vision, and no areas of focal weakness or numbness. Normal gait. No sensory problems. Psychiatric Denies insomnia, depression, pauly or mood swings. Vital Signs: Performed on May 07, 2020 13:52 Height - 62.00 in Weight - 179.4 lbs (HIGH) BSA - 1.83 sq.m BMI - 32.81 (HIGH) Temperature - 97.6 F (LOW) Pulse - 81 /min Respiration - 24 /min BP - 176/88 mm(hg) (HIGH) O2 Sat - 98 % Pain - 0,1 - No physically strenuous activity, but ambulatory and able to carry out light or sedentary work (e.g. office work, light house work). (ECOG) Physical Examination: Constitutional Alert, oriented, no acute distress. Skin pink, warm and dry. Head Normocephalic; atraumatic. Eyes Conjunctivae and sclerae are clear and without icterus. Pupils are reactive and equal. Neck Supple without masses or thyromegaly. No jugular venous distension. Hematologic/Lymphatic No petechiae or purpura. No tender or palpable lymph nodes in the cervical or supraclavicular areas. Respiratory Lungs are clear to auscultation without rhonchi or wheezing. Cardiovascular Regular rate and rhythm of heart without murmurs,clicks, gallops or rubs. Abdomen Non-tender, non-distended, no masses or ascites. Good bowel sounds noted in all quads. No guarding or rebound tenderness. No pulsatile masses. Back/Spine Non-tender to palpation. Extremities No visible deformities, no cyanosis, clubbing or edema. Musculoskeletal No tenderness or swelling, normal range of motion without obvious weakness. Integumentary No rashes or lesions. Neurologic No sensory or motor deficits, normal cerebellar function, normal gait. Psychiatric Alert and oriented times three. Coherent speech. Verbalizes understanding of our discussions today. Laboratory:Test performed on May 06, 2020 08:45 Sodium 137 mmol/L Potassium 4.4 mmol/L Chloride 98 mmol/L CO2 29 mmol/L Anion Gap 14.4 BUN 30 mg/dL Creatinine 1.0 mg/dL Cr Clearance (Est) 62.44 mL/min Glucose 262 mg/dL Osmolality - Calculated 299 mOsm/kg Calcium 8.9 mg/dL Protein, Total 6.1 g/dL Albumin 4.1 g/dL Globulin 2.0 g/dL Bilirubin, Total 0.3 mg/dL ALT (SGPT) 23 U/L AST (SGOT) 15 U/L Alkaline Phosphatase 92 IU/L WBC 10.6 10 3/uL RBC 3.66 10 6/uL HGB 10.2 g/dL HCT 35.1 % MCV 95.9 fL MCH 27.9 pg MCHC 29.1 g/dL RDW 18.1 % Platelet Count 246 10 3/cmm MPV 10.5 fL Neutrophils 8.16 10 3/uL Lymphocytes 1.6 10 3/uL Monocytes 0.6 10 3/uL Eosinophils 0.0 10 3/uL Basophils 0.0 10 3/uL Neutrophil % 76.7 % Lymphocyte % 14.7 % Monocyte % 6.0 % Eosinophil % 0.1 % Basophils % 0.2 % NRBC % 0 % Impression: 1. 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 2. She has had multiple recent falls and suspected syncope. 3. She has a prior history of left breast cancer for which she underwent left mastectomy somewhere in the range of 15 to 20 years ago. Those records are not available. She apparently did not receive any additional treatment. Her other medical illnesses include: 4. Hypertension. 5. Hyperlipidemia. 6. Type II diabetes. 7. Diastolic congestive heart failure. 8. Hypothyroidism. 9. GERD. 10. Restless leg syndrome. 11. Degenerative arthritis/degenerative disease of the spine. 12. Trigeminal neuralgia. 13. Anxiety/depression. 12. Dementia. The findings on the imaging studies and the pathology results were reviewed with the patient and her son per Dr Camara. He discussed the clinical implications. She has some metaplastic carcinoma of the right breast which by clinical evaluation appears to be both locally advanced and metastatic. The tumor is ER positive/WV negative and HER-2/la negative. She was advised that this is incurable cancer, but that it is potentially treatable. In the setting of hormone receptor positive metastatic disease, she will begin a course of treatment with letrozole in combination with palbociclib. This will be administered at the standard dosages of letrozole 2.5 mg daily and palbociclib 125 mg daily on a 21/28-day schedule. She also will begin monthly denosumab injections for the metastatic bone involvement. Mrs. Hickey has gotten insurance approval for the palbociclib letrozole and denosumab. She is here today begin her first cycle. Plan: In the meantime, I will complete her staging evaluation with PET/CT and head MRI. 1. Proceed with Ibrance 125 mg 21 out of 28 days. 2. Proceed with letrozole 2.5 mg daily 3. She will be due for Xgeva today as well. 4. Labs from May 06, 2020 were reviewed in detail and discussed with Ms. Hickey and a copy was given to her WBC 10.6, hemoglobin 10.2 platelets 10 46,000 and ANC is 8000. Random glucose 262 potassium 4.4 creatinine 1.0 LFTs are normal. It is noted that her weight is up approximately 18 pounds since her April 13 visit. 5. She will resume her Lasix at 40 mEq daily and add potassium 10 mEq daily. 6. Of asked her to decrease her dexamethasone to 4 mg daily for about a week and then decrease to every other day or cut the tablet in half and take 2 mg daily whichever is most convenient. 7. She may utilize Zofran ODT she has any nausea. This may be refilled to her pharmacy as well. 8. She was given a prescription for oxycodone 10 mg 1 or 2 every 4-6 hours as needed per Dr. Camara's signed prescription. 9. We will have [facility] health draw weekly interim labs. We will plan to see her back in 1 month for consideration of her Xgeva. 10. Ms. Hickey was instructed to call us in the interim if questions or problems arise. Signed By: Willa Harrell-, AOP Regan Camara MD <<Signature on File>>
== END 2020-05-07 05:56 | disposition home or self-care (01) ==
LOC: ONCMED 05:58
PROVIDERS: PCP Family Medicine; Visit Provider Nurse Practitioner
DX: C50.811 Malignant neoplasm of overlapping sites of right female breast (principal); Z17.0 Estrogen receptor positive status [ER+]; C79.51 Secondary malignant neoplasm of bone; Z23 Encounter for immunization; Z79.899 Other long term (current) drug therapy; Z91.81 History of falling; Z90.12 Acquired absence of left breast and nipple; Z85.3 Personal history of malignant neoplasm of breast; I11.0 Hypertensive heart disease with heart failure; E78.5 Hyperlipidemia, unspecified; E11.9 Type 2 diabetes mellitus without complications; I50.30 Unspecified diastolic (congestive) heart failure; E03.9 Hypothyroidism, unspecified; K21.9 Gastro-esophageal reflux disease without esophagitis; G25.81 Restless legs syndrome; M47.9 Spondylosis, unspecified; G50.0 Trigeminal neuralgia; F41.8 Other specified anxiety disorders; F03.90 Unspecified dementia, unspecified severity, without behavioral disturbance, psychotic disturbance, mood disturbance, and anxiety
CPT/HCPCS: 90471; 90686; 90732; 96372; 99214; J0897

== ENCOUNTER 2020-05-13 17:20 | Outpatient (CLI) | payer MEDICARE, MEDICAID, SELFPAY ==
[2020-05-13 18:10] LABS: Eosinophils % 0.1 %; Hematocrit 36.4 % (37.0-47.0); Hemoglobin 10.9 g/dL (11.5-15.3); Lymphocytes # 0.6 10^3/uL (0.8-4.8); Lymphocytes % 6.9 %; Mean Corpuscular HGB Conc 29.9 g/dL (30.0-36.0); Mean Corpuscular Hemoglobin 28.5 pg (28.0-34.0); Mean Platelet Volume 10.4 fL (7.4-10.4); Monocytes # 0.1 10^3/uL (0.2-0.9); Monocytes % 1.5 %; Neutrophils # 8.41 10^3/uL (1.8-7.7); Nucleated Red Blood Cells % 0 %; Platelet Count 214 10^3/cmm (130-400); Red Blood Count 3.83 10^6/uL (4.1-5.3); Red Cell Distribution Width 17.9 % (12.1-15.1); White Blood Count 9.3 10^3/uL (4.0-10.0)
[2020-05-13 18:42] LABS: Alanine Aminotransferase 26 U/L (0-33); Albumin Level 4.6 g/dL (3.5-5.2); Alkaline Phosphatase 107 IU/L (35-105); Anion Gap 21.4 (5-19); Aspartate Amino Transferase 20 U/L (0-32); Blood Urea Nitrogen 44 mg/dL (8-23); Calcium 9.6 mg/dL (8.5-10.5); Carbon Dioxide 28 mmol/L (22-29); Chloride 89 mmol/L (98-107); Glucose 287 mg/dL (65-115); Osmolality Calculated 298 mOsm/kg (285-295); Potassium 5.4 mmol/L (3.5-5.1); Sodium 133 mmol/L (136-145); Total Bilirubin 0.4 mg/dL (0.15-1.2); Total Protein 6.6 g/dL (6.6-8.7)
== END 2020-05-13 17:21 | disposition home or self-care (01) ==
LOC: LAB 17:23
PROVIDERS: PCP Family Medicine; Visit Provider Internal Medicine Medical Oncology
DX: C50.811 Malignant neoplasm of overlapping sites of right female breast (principal)
CPT/HCPCS: 80053; 85025

== ENCOUNTER 2020-05-18 12:11 | Outpatient (CLI) | payer MEDICARE, MEDICAID, SELFPAY ==
[2020-05-18 12:35] LABS: Basophils % 0.1 %; Eosinophils % 0.1 %; Hematocrit 33.6 % (37.0-47.0); Hemoglobin 9.8 g/dL (11.5-15.3); Lymphocytes # 1.3 10^3/uL (0.8-4.8); Lymphocytes % 18.6 %; Mean Corpuscular HGB Conc 29.2 g/dL (30.0-36.0); Mean Corpuscular Hemoglobin 28.6 pg (28.0-34.0); Mean Platelet Volume 10.3 fL (7.4-10.4); Monocytes # 0.2 10^3/uL (0.2-0.9); Monocytes % 2.1 %; Neutrophils # 5.59 10^3/uL (1.8-7.7); Neutrophils % 78.1 %; Nucleated Red Blood Cells % 0 %; Platelet Count 171 10^3/cmm (130-400); Red Blood Count 3.43 10^6/uL (4.1-5.3); Red Cell Distribution Width 17.8 % (12.1-15.1); White Blood Count 7.2 10^3/uL (4.0-10.0)
[2020-05-18 12:43] LABS: Alanine Aminotransferase 26 U/L (0-33); Albumin Level 4.1 g/dL (3.5-5.2); Alkaline Phosphatase 105 IU/L (35-105); Anion Gap 15.6 (5-19); Aspartate Amino Transferase 13 U/L (0-32); Blood Urea Nitrogen 24 mg/dL (8-23); Calcium 8.5 mg/dL (8.5-10.5); Carbon Dioxide 28 mmol/L (22-29); Chloride 101 mmol/L (98-107); Globulin 1.8 g/dL (1.3-4.6); Glucose 252 mg/dL (65-115); Osmolality Calculated 303 mOsm/kg (285-295); Potassium 4.6 mmol/L (3.5-5.1); Sodium 140 mmol/L (136-145); Total Bilirubin 0.3 mg/dL (0.15-1.2); Total Protein 5.9 g/dL (6.6-8.7)
--- NOTE | 2020-05-22 08:47 | ONC FU_ITS ---
Dr. Camara Patient Follow-Up Note Patient: Vi Hickey Unit #: [id number]: 1945 Dicatated By: Regan Camara M.D.Date of Visit:May 18, 2020 Onc Med Follow-up/Prog Note Chief Complaint: Breast cancer. 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 She has a prior history of left breast cancer, for which she underwent left mastectomy somewhere in the range of 15 to 20 years ago. She apparently did not receive any additional treatment. On 03/25/2020 she was admitted to the hospital after she had fallen in her bathroom the prior evening and apparently arielle on her floor all night. It was suspected to have been due to syncope. She had evidence of rhabdomyolysis and acute renal injury. There were no acute findings on noncontrast CT scans of the head and cervical spine. However, her CT abdomen/pelvis, though, showed evidence of osteolytic bone lesions involving the L2 vertebral body, right ilium, and right eighth rib. Chest CT showed evidence of prior left mastectomy with multiple nodular densities in the right breast and associated right axillary adenopathy. There are multiple noncalcified nodular densities in the lungs, the largest measuring 7 mm. Ultrasound of the right breast showed a lobulated mass in the upper inner quadrant measuring 2.6 x 2.1 x 2.4 cm. Multiple hypoechoic lesions were noted in the right axilla, the largest measuring 2 to 3 cm in diameter. These were felt to most likely represent enlarged necrotic lymph nodes. Ultrasound-guided core needle biopsy of the right breast on 03/31/2020 showed a metaplastic carcinoma with chondroid, myxoid, and osteoid differentiation, grade 3. The tumor was ER positive at 100% and NV negative at less than 1%. It was negative for overexpression of HER-2/la, 1+ by IHC and amplification ratio by FISH of 1.0 with 2.4 HER-2 copies/cell. I had seen her initially on 04/13/2020. In the setting of hormone receptor positive metastatic breast cancer, she was recommended to begin treatment with letrozole in combination with palbociclib. She has multiple underlying medical illnesses including hypertension, hyperlipidemia, type 2 diabetes, hypothyroidism, GERD, restless leg syndrome, trigeminal neuralgia, degenerative arthritis/degenerative disease of the spine, and anxiety/depression. She also has a diagnosis of dementia. She is a non-smoker. INTERIM HISTORY: On 05/07/2020 she began treatment with letrozole 2.5 mg daily together with palbociclib 125 mg daily on a /-day schedule. In addition, she was given denosumab 120 mg by subcutaneous injection for the metastatic bone involvement. She is seen today for an unplanned visit. Within a few days after starting her treatment the family had called reporting that she was having severe pain/cramping in both legs. Pain was in the calves and in the anterior tibial area. It was severe enough that she could not stand it . She stopped the letrozole but she continued the palbociclib, and she is now in her second week of treatment. The pain has mostly resolved. She now has just mild pain here and there. She is walking better, but she feels tired and she still has limited activity. ECOG score is 2. She has good appetite, but her family says that she eats mostly junk food. She has not had fever. She does have hot flashes all the time. She has shortness of breath with activity. She has a little cough at night. She had 1 or 2 episodes of burning and hurting in the lower chest. She has not had nausea or acid reflux symptoms. She has occasional constipation, but her bowels have been okay lately. She has no complaints. She does not complain of headache or dizziness, and she has no focal neurologic symptoms. Medications: Cholecalciferol 1 Capsule (of 25 mcg ) Oral daily, Citalopram Hydrobromide 1 Tablet (of 10 mg) Oral every am, Dexamethasone 1 Tablet (of 4 mg) Oral daily, Gabapentin (100 mg) Capsule Oral Take as Directed, Gabapentin 1 Capsule (of 300 mg) Oral at bedtime, Irbesartan 0.5 Tablet (of 150 mg) Oral daily, Levothyroxine Sodium 1 Tablet (of 75 mcg) Oral daily, LORazepam 1 Tablet (of 1 mg) Oral q 8 hours PRN, Magnesium 1 Capsule (of 400 mg) Oral daily, Melatonin 1 Tablet (of 10 mg) Oral at bedtime, metFORMIN HCl 2 Tablet (of 500 mg) Oral daily, Omeprazole 1 Capsule (of 40 mg) Capsule Delayed Release Oral b.i.d., Ondansetron HCl 1 Tablet (of 4 mg) Oral q 8 hours PRN, oxyCODONE HCl 1 - 2 Tablet (of 10 mg) Oral PRN, Requip 1 Tablet (of 2 mg) Oral b.i.d., Rivastigmine Tartrate 1 Capsule (of 3 mg) Oral b.i.d., Simvastatin 1 Tablet (of 20 mg) Oral daily Allergies: NAYELI Inhibitors, Penicillins, and Sulfa Antibiotics. Review of Systems: Constitutional - She has been feeling tired. She has been walking a little better, she still has limited activity. Her appetite is okay, though her family says she tends to mostly eat junk food. She does not have fever, she does have hot flashes all the time. ECOG score is 2, ENMT - No sinus congestion/drainage. She has dry mouth but she has not had mouth sores. No sore throat or difficulty swallowing, Hematologic/Lymphatic - No abnormal bruising or bleeding, Respiratory - She is short of breath with activity. She has a little bit of cough at night. No pleuritic pain or hemoptysis, Cardiovascular - She had 1 or 2 episodes of burning and hurting in her lower chest area. No palpitations, Gastrointestinal - No nausea or vomiting. No heartburn or acid reflux. She has had occasional constipation. No blood in the stool or black stools, Genitourinary (F) - No dysuria or hematuria. No urinary frequency. No urgency or incontinence, Musculoskeletal - After starting the letrozole and Ibrance she developed severe pain/cramping in her legs, both in the calves and in the anterior tibial area. She stopped the letrozole. The pain has mostly resolved now, Integumentary - No skin rash, Neurologic - No headache or dizziness. No numbness or tingling. No other focal neurologic symptoms, Psychiatric - She has anxiety and depression. No insomnia. Vital Signs: Performed on May 18, 2020 13:24 Height - 62.00 in Weight - 177.6 lbs (LOW) BSA - 1.82 sq.m BMI - 32.48 (HIGH) Temperature - 97.9 F (LOW) Pulse - 71 /min Respiration - 22 /min BP - 151/74 mm(hg) (HIGH) O2 Sat - 97 % Pain - 0 Physical Examination: Constitutional - She appears somewhat weak generally, but not acutely ill, Eyes - Sclerae nonicteric. Conjunctivae clear, ENMT - No lesions noted in the oral cavity, Hematologic/Lymphatic - No cervical or clavicular adenopathy, Respiratory - Lungs are clear with good air movement bilaterally, Cardiovascular - Heart rhythm is irregular. There is I/ systolic murmur. There is no gallop or rub noted, Abdomen - Soft. Liver and spleen are not enlarged. There is no abdominal mass or ascites noted and there is no inguinal adenopathy, Extremities - Mild edema. Pedal pulses are palpable bilaterally, Neurologic - No focal neurologic deficits noted. Impression: 1. 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 2. She has had multiple recent falls and suspected syncope. 3. She has a prior history of left breast cancer for which she underwent left mastectomy somewhere in the range of 15 to 20 years ago. Those records were not available. She apparently did not receive any additional treatment. Her other medical illnesses include: 4. Hypertension. 5. Hyperlipidemia. 6. Type II diabetes. 7. Diastolic congestive heart failure. 8. Hypothyroidism. 9. GERD. 10. Restless leg syndrome. 11. Degenerative arthritis/degenerative disease of the spine. 12. Trigeminal neuralgia. 13. Anxiety/depression. 12. Dementia. On 05/07/2020 she began treatment with letrozole 2.5 mg daily together with palbociclib 125 mg daily on a 21/28-day schedule. She also received denosumab 120 mg by subcutaneous injection for the metastatic bone involvement. Within a few days she developed severe pain in the lower legs, both in the calves and in the anterior tibial area. The pain improved after stopping letrozole. She has been able to continue the palbociclib. The cause for the pain is still uncertain,. It is presumed to be treatment related, but it could have been caused by either the letrozole or the denosumab. Plan: She will continue palbociclib at the prescribed dosage and schedule. She will try restarting the letrozole 2.5 mg daily. If the pain comes back she is to stop it immediately and notify us. Otherwise she will continue her follow-up as previously scheduled. Signed By: Regan Camara M.D. <<Signature on File>>
== END 2020-05-18 12:12 | disposition home or self-care (01) ==
LOC: LAB 12:15 → ONCMED 13:00
PROVIDERS: PCP Family Medicine; Visit Provider Internal Medicine Medical Oncology
DX: C50.811 Malignant neoplasm of overlapping sites of right female breast (principal); Z17.0 Estrogen receptor positive status [ER+]; C79.51 Secondary malignant neoplasm of bone; Z79.899 Other long term (current) drug therapy; Z91.81 History of falling; Z90.12 Acquired absence of left breast and nipple; I11.0 Hypertensive heart disease with heart failure; E78.5 Hyperlipidemia, unspecified
CPT/HCPCS: 80053; 83735; 85025; 99214

== ENCOUNTER 2020-05-25 18:01 | Outpatient (CLI) | payer MEDICARE, MEDICAID, SELFPAY ==
[2020-05-25 18:36] LABS: Eosinophils % 0.3 %; Hematocrit 30.6 % (37.0-47.0); Lymphocytes # 1.3 10^3/uL (0.8-4.8); Lymphocytes % 38.3 %; Mean Corpuscular HGB Conc 29.4 g/dL (30.0-36.0); Mean Corpuscular Hemoglobin 28.8 pg (28.0-34.0); Mean Corpuscular Volume 97.8 fL (81-99); Mean Platelet Volume 10.5 fL (7.4-10.4); Monocytes # 0.1 10^3/uL (0.2-0.9); Neutrophils % 57.8 %; Nucleated Red Blood Cells % 0 %; Platelet Count 128 10^3/cmm (130-400); Red Blood Count 3.13 10^6/uL (4.1-5.3); Red Cell Distribution Width 18.8 % (12.1-15.1); White Blood Count 3.3 10^3/uL (4.0-10.0)
[2020-05-25 18:47] LABS: Alanine Aminotransferase 24 U/L (0-33); Albumin Level 3.8 g/dL (3.5-5.2); Alkaline Phosphatase 117 IU/L (35-105); Anion Gap 20.5 (5-19); Aspartate Amino Transferase 14 U/L (0-32); Blood Urea Nitrogen 32 mg/dL (8-23); Calcium 8.9 mg/dL (8.5-10.5); Carbon Dioxide 24 mmol/L (22-29); Chloride 100 mmol/L (98-107); Glucose 234 mg/dL (65-115); Osmolality Calculated 304 mOsm/kg (285-295); Potassium 4.5 mmol/L (3.5-5.1); Sodium 140 mmol/L (136-145); Total Bilirubin 0.2 mg/dL (0.15-1.2); Total Protein 5.8 g/dL (6.6-8.7)
== END 2020-05-25 18:02 | disposition home or self-care (01) ==
LOC: LAB 18:06
PROVIDERS: PCP Family Medicine; Visit Provider Internal Medicine Medical Oncology
DX: T79.6XXA Traumatic ischemia of muscle, initial encounter (principal); X58.XXXA Exposure to other specified factors, initial encounter
CPT/HCPCS: 80053; 85025